=== PATIENT | female | born 1935 | race Caucasian/White ===

== ENCOUNTER 2020-12-02 11:36 | Inpatient (IN) ==
[2020-12-02] MEDS ORDERED: SODIUM CHLORIDE 0.9% 1000ML 500 ML IV ONE ×2 (12:25→14:14)
[2020-12-02] MEDS ORDERED: ALBUTEROL HFA 8 GM INHALER INH ONE (12:25)
--- NOTE | 2020-12-02 12:35 | Emergency Department Note ---
Impression & Plan Atrial fibrillation with rapid ventricular response, Weakness, Acute dehydration, COVID-19 ED Provider Note NAME: LARS JAVED AGE: 85 SEX: F : 1935 ARRIVES VIA: Ambulance INFORMANT: [Patient][nursing] ED PROVIDER(S): [Librado Cortez MD] CHIEF COMPLAINT: Illness HISTORY OF PRESENT ILLNESS: The patient is an 85-year-old female presents to the ER with fatigue, weakness, some cough and shortness of breath. The patient states that she has been sick for about 2 weeks with some flulike symptoms. She has had some body aches, she has been quite fatigued and she has lost her appetite as well as her taste. A week ago, she tested positive for Covid. She has continued to decline especially with her strength. She feels dehydrated. She had some occasional back pain and some occasional chest pain. She states that she does have a dry cough and she is somewhat short of breath, especially with exertion. She had some vomiting recently but none today. No diarrhea. The patient was brought by EMS. She states her daughter felt she looked awful today and felt she should be seen in the ED. REVIEW OF SYSTEMS: See HPI for pertinent positives and negatives. A total of ten systems were reviewed and were otherwise negative. PMHx/PSHx: See Below SOCIAL HISTORY: See Below. PHYSICAL EXAM: GENERAL: Patient is in no acute distress. HEENT: No acute trauma, normocephalic atraumatic, mucous membranes dry, no nasal congestion, no scleral icterus. NECK: No stridor, no adenopathy, no meningismus, trachea is midline. LUNGS: Crackles at both bases, more so on the left. There is no wheezing, no respiratory distress. HEART: Mildly tachycardic and irregular, no murmurs. ABDOMEN: Soft, nontender, bowel sounds positive, no hernias, no peritonitis. EXTREMITIES: No cyanosis or edema, full range of motion of all the joints without pain or difficulty, no signs for acute trauma. NEUROLOGIC: Oriented x 3, no acute motor or sensory deficits, no focal weakness. SKIN: She has very dry skin, especially to her lower extremities. No erythema to suggest cellulitis. DIFFERENTIAL DIAGNOSIS: Infection, dehydration, metabolic abnormality, hypo/hyperglycemia, COVID-19 pneumonia, electrolyte disturbance, anemia, hypoxia, cardiac sources, dysrhythmia, intracerebral event, toxicologic issues, stroke, TIA, as well as other pathologies. EMERGENCY DEPARTMENT COURSE/PROCEDURES: ECG: Indication was shortness of breath. The ECG shows atrial fibrillation with diffuse T wave flattening and some subtle ST depression. There are PVCs present. The rate is 107. There are no PACs. The QTc is 483. No old ECGs available for comparison. Continuous Cardiac Monitoring: An order was placed for continuous cardiac monitoring. The monitor shows a rate of 110 with atrial fibrillation. Critical Care Note: I have personally spent 48 minutes of critical care time in the direct management of this patient. This includes bedside care, interpretation of diagnostic studies, and testing, discussion with consultants, patient, and family members, and other required patient management activities. This 48 minutes is in excess of all separately billable procedures. MEDICAL DECISION MAKING: There is no leukocytosis or concerning anemia. There is a normal platelet count. No coagulopathy. No significant electrolyte abnormality or kidney failure. Lactic acid level was slightly elevated consistent with dehydration and/or infection. No worrisome liver enzyme elevation. The patient appeared to be in a euthyroid state. Covid testing was positive, influenza testing was negative. Chest film showed some congestion at the left base consistent with possible atelectasis or potentially Covid pneumonia. ECG shows rapid atrial fibrillation, there was no evidence for acute MT. Cardiac enzyme testing x1 is not consistent with acute cardiac injury. The patient presents with weakness. She was dehydrated. She was found to be in rapid A. fib. In addition, she has COVID-19 pneumonia. The patient was given albuterol via MDI. She received IV saline, a total of 1 L was given. I discussed my findings with the patient. I do think a hospital stay is warranted. Her heart rate is relatively controlled already as she takes metoprolol on a regular basis. As she was dehydrated, I felt that we could hold on IV rate controlling medications. I did speak with case management, the on-call hospitalist was consulted. Past Med/Surg History Medical History Afib Breast CA CAD (coronary artery disease) COVID-19 HTN (hypertension) Hypothyroidism Kidney stone Pyelonephritis Surgical History (Updated 12/02/20 @ 15:38 by Gavin S. Brezovic, [employer]) H/O rotator cuff surgery Previous section S/P CABG x 3 S/P cholecystectomy Status post bilateral knee replacements Family History Other No significant family history Social History Smoking Status: Never smoker Preferred Language: Micronesian Feels Safe at Home: Yes Allergies Allergies Allergy/AdvReac Type Severity Reaction Status Date / Time No Known Allergies Allergy Unverified 12/02/20 14:56 Home Meds Home Medications Medication Instructions Recorded Confirmed atorvastatin [Lipitor] 10 mg PO DAILY 07/17/20 12/02/20 furosemide [Lasix] 20 mg PO DAILY PRN 07/17/20 12/02/20 isosorbide mononitrate 60 mg PO BID 07/17/20 12/02/20 levothyroxine 50 mcg PO DAILY 07/17/20 12/02/20 metoprolol tartrate [Lopressor] 50 mg PO BID 07/17/20 12/02/20 sertraline [Zoloft] 100 mg PO DAILY 07/17/20 12/02/20 triamcinolone acetonide 1 applic TOPICAL BID 07/17/20 12/02/20 ibuprofen 400 mg PO Q6H PRN 12/02/20 12/02/20 Previous Rx's Medication Instructions Recorded oxycodone 5 mg PO Q4H PRN #15 tab 07/28/20 Results & Data (ED) Vital Signs Vital Signs - 24 hr 12/02/20 11:37 12/02/20 11:52 12/02/20 11:56 Temperature 36.9 C Temperature Source Oral Pulse Rate 96 H Pulse Rate [Right Finger] 110 H Pulse Rhythm [Right Finger] Pulse Strength [Right Finger] Respiratory Rate 17 18 Respiratory Effort / Characteristics Non-Labored Respiratory Depth Normal Respiratory Pattern Blood Pressure 96/78 L Blood Pressure [Right Arm] Blood Pressure Mean 84 Blood Pressure Mean [Right Arm] Blood Pressure Position [Right Arm] Pulse Oximetry 96 98 Oxygen Delivery Method Room Air Room Air Room Air Sepsis Recent Fever Within 48 Hours No Sepsis New/Unexplained Change in Mental Status N/A Sepsis Action Taken by Nursing No Action Required 12/02/20 12:00 12/02/20 12:35 12/02/20 13:30 Temperature Temperature Source Pulse Rate Pulse Rate [Right Finger] 90 102 H Pulse Rhythm [Right Finger] Regular Pulse Strength [Right Finger] Normal Respiratory Rate 12 22 Respiratory Effort / Characteristics Non-Labored Respiratory Depth Normal Respiratory Pattern Regular Blood Pressure Blood Pressure [Right Arm] 131/85 131/105 H Blood Pressure Mean Blood Pressure Mean [Right Arm] 100 113 Blood Pressure Position [Right Arm] Sitting Pulse Oximetry 96 94 Oxygen Delivery Method Room Air Room Air Room Air Sepsis Recent Fever Within 48 Hours Sepsis New/Unexplained Change in Mental Status Sepsis Action Taken by Correction Medications Current Medication List: was personally reviewed by me Laboratory Data Attestation: I reviewed the patient's lab results. Result diagrams: 12/02/20 12:46 12/02/20 12:46 Lab Results 12/02/20 12/02/20 12/02/20 Range/Units 12:10 12:10 12:46 WBC 7.48 (4.8-10.8) K/uL RBC 4.90 (4.2-5.4) M/uL Hgb 15.5 (12.0-16.0) g/dL Hct 44.5 (37-47) % MCV 90.8 (80-100) fL MCH 31.6 (25-34) pg MCHC 34.8 (32-36) g/dL RDW Std Deviation 45.1 (36.4-46.3) fL RDW Coeff of Adalberto 13.5 (11.5-14.5) % Plt Count 133 (130-400) K/uL MPV 9.8 (7.4-10.4) fL Immature Gran % (Auto) 0.4 % Neut % (Auto) 77.6 % Lymph % (Auto) 11.4 % [place] % (Auto) 10.2 % Eos % (Auto) 0.3 % Baso % (Auto) 0.1 % Neut # (Auto) 5.81 (1.4-6.5) K/uL Lymph # (Auto) 0.85 L (1.2-3.4) K/uL [place] # (Auto) 0.76 H (0.11-0.59) K/uL Eos # (Auto) 0.02 (0-0.5) K/uL Baso # (Auto) 0.01 (0-0.2) K/uL Immature Gran # (Auto) 0.03 H (0.00-0.02) K/uL PT (9.0-12.0) Seconds INR (0.9-1.1) APTT (21.0-31.0) Seconds PTT Ratio Sodium (136-145) mmol/L Potassium (3.5-5.1) mmol/L Chloride (98-107) mmol/L Carbon Dioxide (21-32) mmol/L Anion Gap (3-11) BUN (7-18) mg/dl Creatinine (0.6-1.2) mg/dl Est Cr Clr Drug Dosing ml/min Est GFR ( Amer) Est GFR (Non-Af Amer) BUN/Creatinine Ratio (10-20) Glucose (70-99) mg/dl Lactate (0.4-2.0) mmol/L Calcium (8.5-10.1) mg/dl Magnesium (1.8-2.4) mg/dl Total Bilirubin (0.2-1) mg/dl AST (15-37) U/L ALT (12-78) U/L Alkaline Phosphatase (45-117) U/L Troponin I (0-0.045) ng/ml Total Protein (6.4-8.2) gm/dl Albumin (3.4-5.0) gm/dl Globulin (2.5-4.0) gm/dl Albumin/Globulin Ratio (0.9-2) TSH (0.300-4.500) uIu/ml COVID-19 Eval Order [facility]FluRsv at [facility] SARS-CoV-2 (PCR) POSITIVE A* (Negative) Influenza Type A (PCR) Negative (Neg) Influenza Type B (PCR) Negative (Neg) RSV (RT-PCR) Negative (Neg) 12/02/20 12/02/20 12/02/20 Range/Units 12:46 12:46 12:46 WBC (4.8-10.8) K/uL RBC (4.2-5.4) M/uL Hgb (12.0-16.0) g/dL Hct (37-47) % MCV (80-100) fL MCH (25-34) pg MCHC (32-36) g/dL RDW Std Deviation (36.4-46.3) fL RDW Coeff of Adalberto (11.5-14.5) % Plt Count (130-400) K/uL MPV (7.4-10.4) fL Immature Gran % (Auto) % Neut % (Auto) % Lymph % (Auto) % [place] % (Auto) % Eos % (Auto) % Baso % (Auto) % Neut # (Auto) (1.4-6.5) K/uL Lymph # (Auto) (1.2-3.4) K/uL [place] # (Auto) (0.11-0.59) K/uL Eos # (Auto) (0-0.5) K/uL Baso # (Auto) (0-0.2) K/uL Immature Gran # (Auto) (0.00-0.02) K/uL PT 10.6 (9.0-12.0) Seconds INR 1.0 (0.9-1.1) APTT 27.9 (21.0-31.0) Seconds PTT Ratio 1.1 Sodium 140 (136-145) mmol/L Potassium 3.5 (3.5-5.1) mmol/L Chloride 109 H (98-107) mmol/L Carbon Dioxide 23 (21-32) mmol/L Anion Gap 8.0 (3-11) BUN 26 H (7-18) mg/dl Creatinine 1.02 (0.6-1.2) mg/dl Est Cr Clr Drug Dosing 36.9 ml/min Est GFR ( Amer) 57.7 Est GFR (Non-Af Amer) 49.8 BUN/Creatinine Ratio 25.8 H (10-20) Glucose 110 H (70-99) mg/dl Lactate 2.2 H* (0.4-2.0) mmol/L Calcium 10.2 H (8.5-10.1) mg/dl Magnesium 2.0 (1.8-2.4) mg/dl Total Bilirubin 0.8 (0.2-1) mg/dl AST 55 H (15-37) U/L ALT 46 (12-78) U/L Alkaline Phosphatase 80 (45-117) U/L Troponin I < 0.015 (0-0.045) ng/ml Total Protein 7.5 (6.4-8.2) gm/dl Albumin 3.0 L (3.4-5.0) gm/dl Globulin 4.5 H (2.5-4.0) gm/dl Albumin/Globulin Ratio 0.7 L (0.9-2) TSH 1.260 (0.300-4.500) uIu/ml COVID-19 Eval Order SARS-CoV-2 (PCR) (Negative) Influenza Type A (PCR) (Neg) Influenza Type B (PCR) (Neg) RSV (RT-PCR) (Neg) 12/02/20 Range/Units 15:15 WBC (4.8-10.8) K/uL RBC (4.2-5.4) M/uL Hgb (12.0-16.0) g/dL Hct (37-47) % MCV (80-100) fL MCH (25-34) pg MCHC (32-36) g/dL RDW Std Deviation (36.4-46.3) fL RDW Coeff of Adalberto (11.5-14.5) % Plt Count (130-400) K/uL MPV (7.4-10.4) fL Immature Gran % (Auto) % Neut % (Auto) % Lymph % (Auto) % [place] % (Auto) % Eos % (Auto) % Baso % (Auto) % Neut # (Auto) (1.4-6.5) K/uL Lymph # (Auto) (1.2-3.4) K/uL [place] # (Auto) (0.11-0.59) K/uL Eos # (Auto) (0-0.5) K/uL Baso # (Auto) (0-0.2) K/uL Immature Gran # (Auto) (0.00-0.02) K/uL PT (9.0-12.0) Seconds INR (0.9-1.1) APTT (21.0-31.0) Seconds PTT Ratio Sodium (136-145) mmol/L Potassium (3.5-5.1) mmol/L Chloride (98-107) mmol/L Carbon Dioxide (21-32) mmol/L Anion Gap (3-11) BUN (7-18) mg/dl Creatinine (0.6-1.2) mg/dl Est Cr Clr Drug Dosing ml/min Est GFR ( Amer) Est GFR (Non-Af Amer) BUN/Creatinine Ratio (10-20) Glucose (70-99) mg/dl Lactate 1.9 (0.4-2.0) mmol/L Calcium (8.5-10.1) mg/dl Magnesium (1.8-2.4) mg/dl Total Bilirubin (0.2-1) mg/dl AST (15-37) U/L ALT (12-78) U/L Alkaline Phosphatase (45-117) U/L Troponin I (0-0.045) ng/ml Total Protein (6.4-8.2) gm/dl Albumin (3.4-5.0) gm/dl Globulin (2.5-4.0) gm/dl Albumin/Globulin Ratio (0.9-2) TSH (0.300-4.500) uIu/ml COVID-19 Eval Order SARS-CoV-2 (PCR) (Negative) Influenza Type A (PCR) (Neg) Influenza Type B (PCR) (Neg) RSV (RT-PCR) (Neg) Administered Medications Discontinued Medications Albuterol (Albuterol Hfa 8 Gm Inhaler) 2 puffs INH NOW ONE Stop: 12/02/20 12:26 Last Admin: 12/02/20 13:10 Dose: 2 puffs Documented by: [id number] Sodium Chloride (Nss 1000ml) 500 mls @ 999 mls/hr IV .Q31M ONE Stop: 12/02/20 12:55 Last Infusion: 12/02/20 16:28 Dose: 0 mls/hr Documented by: [id number] Admin: 12/02/20 13:10 Dose: 999 mls/hr Documented by: [id number] Sodium Chloride (Nss 1000ml) 500 mls @ 999 mls/hr IV .Q31M ONE Stop: 12/02/20 14:44 Last Infusion: 12/02/20 16:28 Dose: 0 mls/hr Documented by: [id number] Admin: 12/02/20 15:26 Dose: 999 mls/hr Documented by: [id number] Potassium Chloride (Potassium Chloride Crtab 20 Meq Tabcr) 40 meq PO NOW STA Stop: 12/02/20 14:27 Last Admin: 12/02/20 15:26 Dose: 40 meq Documented by: [id number] Rivaroxaban (Rivaroxaban 20 Mg Tab) 20 mg PO DAILY ONE Stop: 12/02/20 15:08 Last Admin: 12/02/20 16:21 Dose: 20 mg Documented by: [id number] Imaging Data Radiologist's Impression: Chest X-Ray 12/02/20 12:25 SINGLE VIEW CHEST CLINICAL HISTORY: Dyspnea. FINDINGS: An AP, portable, upright chest radiograph is compared to study dated 02/09/2020. The patient is status post midline sternotomy. The heart is top normal for projection noting atherosclerotic calcification of the thoracic aorta. Chronic interstitial thickening is similar to previous. There is mild elevation of left hemidiaphragm with left basilar atelectasis. No airspace consolidation or large pleural effusion is identified. No pneumothorax is seen. The skeletal structures are osteopenic. The bony thorax is grossly intact. Surgical anchors are present in the right humeral head. Clips are noted in the left axilla. IMPRESSION: No acute cardiopulmonary abnormality. ACT 112: Negative or not required by law. Electronically signed by: Librado Murillo M.D. 12/02/2020 1:42 PM Discharge Plan Visit Data Chief Complaint: Respiratory Problems Stated Complaint: SOB/ Pos Covid ED Provider: Librado Cortez Discharge Problem: Atrial fibrillation with rapid ventricular response, Weakness, Acute dehydration, COVID-19 Patient Disposition: Admitted As Inpatient Condition: Fair Forms Stand Alone Forms: [facility] [employer] Prescriptions Prescriptions: No Action atorvastatin [Lipitor] 10 mg tablet 10 mg PO DAILY RF: 0 sertraline [Zoloft] 100 mg tablet 100 mg PO DAILY RF: 0 isosorbide mononitrate 60 mg tablet extended release 24 hr 60 mg PO BID RF: 0 levothyroxine 50 mcg tablet 50 mcg PO DAILY RF: 0 triamcinolone acetonide 0.1 % ointment 1 applic TOPICAL BID RF: 0 metoprolol tartrate [Lopressor] 50 mg tablet 50 mg PO BID RF: 0 furosemide [Lasix] 20 mg tablet 20 mg PO DAILY PRN (Reason: fluid build up) RF: 0 oxycodone 5 mg tablet 5 mg PO Q4H PRN (Reason: pain) Qty: 15 RF: 0 ibuprofen 200 mg Tablet 400 mg PO Q6H PRN (Reason: fever/pain) RF: 0 Referrals Referrals: Ivy Child MD [Primary Care Provider] -
[2020-12-02 13:00] LABS: Basophils # (auto) 0.01 K/uL (0-0.2); Basophils % (auto) 0.1 %; Eosinophils # (auto) 0.02 K/uL (0-0.5); Eosinophils % (auto) 0.3 %; Hematocrit (blood only) 44.5 % (37-47); Hemoglobin 15.5 g/dL (12.0-16.0); Immature Granulocytes # (auto) 0.03 K/uL (0.00-0.02); Immature Granulocytes % (auto) 0.4 %; Lymphocytes # (auto) 0.85 K/uL (1.2-3.4); Lymphocytes % (auto) 11.4 %; Mean Corpuscular Hemoglobin 31.6 pg (25-34); Mean Corpuscular Hgb Conc 34.8 g/dL (32-36); Mean Corpuscular Volume 90.8 fL (80-100); Mean Platelet Volume 9.8 fL (7.4-10.4); Monocytes # (auto) 0.76 K/uL (0.11-0.59); Monocytes % (auto) 10.2 %; Neutrophils # (auto) 5.81 K/uL (1.4-6.5); Neutrophils % (auto) 77.6 %; Platelet Count 133 K/uL (130-400); RDW Coefficient of Variation 13.5 % (11.5-14.5); RDW Standard Deviation 45.1 fL (36.4-46.3); White Blood Count 7.48 K/uL (4.8-10.8)
[2020-12-02 13:15] LABS: Partial Thromboplastin Ratio 1.1; Partial Thromboplastin Time 27.9 Seconds (21.0-31.0); Prothrombin Time 10.6 Seconds (9.0-12.0)
[2020-12-02 13:18] LABS: Alanine Aminotransferase 46 U/L (12-78); Aspartate Aminotransferase 55 U/L (15-37); BUN Creatinine Ratio 25.8 (10-20); Blood Urea Nitrogen 26 mg/dl (7-18); Calcium 10.2 mg/dl (8.5-10.1); Carbon Dioxide 23 mmol/L (21-32); Chloride 109 mmol/L (98-107); Creatinine Clr Calc Pharmacy 36.9 ml/min; Est GFR (African American) 57.7; Est GFR (Non-African American) 49.8; Glucose 110 mg/dl (70-99); Potassium 3.5 mmol/L (3.5-5.1); Sodium 140 mmol/L (136-145)
[2020-12-02 13:28] LABS: Albumin Globulin Ratio 0.7 (0.9-2); Alkaline Phosphatase 80 U/L (45-117); Bilirubin,Total 0.8 mg/dl (0.2-1); Globulin 4.5 gm/dl (2.5-4.0); Total Protein 7.5 gm/dl (6.4-8.2); Troponin I < 0.015 ng/ml (0-0.045)
--- NOTE | 2020-12-02 13:43 | XRay Report ---
SINGLE VIEW CHEST CLINICAL HISTORY: Dyspnea. FINDINGS: An AP, portable, upright chest radiograph is compared to study dated 02/09/2020. The patient is status post midline sternotomy. The heart is top normal for projection noting atherosclerotic calc ification of the thoracic aorta. Chronic interstitial thickening is similar to previous. There is mil d elevation of left hemidiaphragm with left basilar atelectasis. No airspace consolidation or large p leural effusion is identified. No pneumothorax is seen. The skeletal structures are osteopenic. The b chelsey thorax is grossly intact. Surgical anchors are present in the right humeral head. Clips are noted in the left axilla. IMPRESSION: No acute cardiopulmonary abnormality. ACT 112: Negative or not required by law. Electronically signed by: Librado Murillo M.D. 12/02/2020 1:42 PM
[2020-12-02 13:49] LABS: Influenza A virus by PCR Negative (Neg); Influenza B virus by PCR Negative (Neg); RSV by PCR Negative (Neg)
[2020-12-02 14:09] LABS: SARS CoV2 RNA(COVID-19) InHosp POSITIVE (Negative)
[2020-12-02] MEDS ORDERED: POTASSIUM CHLORIDE CRTAB 20 MEQ TABCR PO STA (14:26)
[2020-12-02] MEDS ORDERED: RIVAROXABAN 20 MG TAB PO ONE (15:07)
--- NOTE | 2020-12-02 15:47 | History & Physical Report ---
Date of Service December 02, 2020 Assessment & Plan (1) COVID-19: COVID 19- day 10-12 - not hypoxic, or lymphopenic, no evidence of pneumonia or other organ dysfunction- WBC 7, NLR 6:1, blood and urine cultures pending - admit for supportive care with dietary and oral intake - Avoid further crystalloid infusions to keep lungs dry - Assist with oral hydration - Self proning, with albuterol PRN - Isolation precautions continue airborne (2) Afib: New onset afib- patient nor daughter recall her having this before, even after her cardiac surgery - Patient has not been taking her metoprolol for the last 2 days at least - this in conjunction with COVID 19 infection likely inciting event - K 3.5- given 40 meq potassium; MG 2.0 - Restart oral BB - CHADSVASC -2 - discussion had with patient and daughter regarding anticoagulation and risk factors for VKA vs. DOACs. - With her coronary history and now COVID infection; Will start patient on Xarelto 20 mg PO dialy first dose now - Will consult her Video Tape Duplicator DR. Ortiz for further discussions following her COVID - Rate control option for time being as we are not sure when she went into AFIB goal <110 - TSH 1.2 (3) CAD (coronary artery disease): patient reports stable angina with CAD to cahto vessels, but with reported compromised bypass graft - Continue statin - Continue BB - Continue Isosorbide (4) HTN (hypertension): Goal <130 - Review from previous available data doesn't show great control - Appreciate cardiology for historical review (5) Hypothyroidism: Continue Synthroid - no acute needs TSH normal History of Present Illness Chief Complaint: fatigue and poor intake Primary Care Provider: Ivy Child MD 85 YOF with past medical history of: CABG x3 2001 in [place], patient states she has one of her grafts that is blocked and they have tried multiple times to unblock it in [place] and [place], with no success, she follows with Dr. Ortiz from [facility]. She has HTN as well as HLD, and some dry keratotic skin, and hypothyroidism. Patient has experienced angina for which she takes her SL nitroglycerin. She takes this for times when she knows she is going to do inactivity that gives her angina. Patient came in today as she was tested positive for COVID last FridayPril2021. She has not gotten her vaccine, secondary to being unable to find a vaccine center that called her back. She lives with her daughter who is a secondary school teacher librarian and got the Jarad and Jarad vaccine on . Her daughter and her grandson both currently have Covid. I spoke with her daughter Fabiola and the have been feeling unwell since around the 07-24. She made her mom come to the emergency room today because she has not been taking her medications for the past couple days and her oral intake of food and water has been decreased for the week. The patient states that she just has no appetite and food tastes funny to her. She was also noted to be in new onset atrial fibrillation at this time that is rate controlled. Patient will be admitted and monitored for her response with COVID, she is not hypoxic, or hypotensive, no evidence of organ dysfunction, she received 2 liters of 0.9% saline in the emd for mild lactate elevation. Patient sees Dr. Ortiz and consult has been placed Allergies Allergy/AdvReac Type Severity Reaction Status Date / Time No Known Allergies Allergy Unverified 12/02/20 14:56 Home Medications Medication Instructions Recorded Confirmed Type atorvastatin [Lipitor] 10 mg PO DAILY 07/17/20 12/02/20 History furosemide [Lasix] 20 mg PO DAILY PRN 07/17/20 12/02/20 History isosorbide mononitrate 60 mg PO BID 07/17/20 12/02/20 History levothyroxine 50 mcg PO DAILY 07/17/20 12/02/20 History metoprolol tartrate [Lopressor] 50 mg PO BID 07/17/20 12/02/20 History sertraline [Zoloft] 100 mg PO DAILY 07/17/20 12/02/20 History triamcinolone acetonide 1 applic TOPICAL BID 07/17/20 12/02/20 History oxycodone 5 mg PO Q4H PRN #15 tab 07/28/20 12/02/20 Rx ibuprofen 400 mg PO Q6H PRN 12/02/20 12/02/20 History Past Med/Surg History Medical History Afib Breast CA CAD (coronary artery disease) COVID-19 HTN (hypertension) Hypothyroidism Kidney stone Pyelonephritis Surgical History (Updated 12/02/20 @ 15:38 by MAGNUS Wilde) H/O rotator cuff surgery Previous section S/P CABG x 3 S/P cholecystectomy Status post bilateral knee replacements Family History Other No significant family history Social History Smoking Status: Never smoker Preferred Language: Danish Feels Safe at Home: Yes Review of Systems Review of Systems: REVIEW OF SYSTEMS: Constitutional: (+) sweats or chills, No fever, Eyes: No diplopia, no worsening or blurred vision ENT: normal hearing, no trouble swallowing Respiratory: (+) cough, sputum, dyspnea on exertion, no dyspnea on rest Cardiovascular: (+) angina, No chest pain, tightness or palpitations Abdomen: (+) constipation, No pain, nausea, vomiting, diarrhea Musculoskeletal: No joint pain, calf pain, swelling Neurologic: No weakness, numbness/tingling, or balance problems Psychiatric: No anxiety or depression Skin: (+) dry keratosis Physical Exam Physical Exam: PHYSICAL EXAM: General: awake, alert, no apparent distress Head: Normocephalic, atraumatic ENT: PERRL, EOMI, no pharyngeal exudate, mucous membranes moist Neuro: AAO x 3, speech clear and appropriate, strength intact bilaterally 5/5, sensation intact and equal all extremities and dermatomes, no pronator drift Chest: equal rise and fall of the chest, no accessory muscle use, no heaves or thrills, scattered fine crackles throughout, on room air, no hypoxia with movement. cough with thin clear secretions Cardiac: irregular rate and rhythm, telemetry reviewed- afib no ectopy, skin warm dry, cap refill <3 seconds, peripheral pulses +2 no JVD, no murmur, no JVD, no edema GI: NABS x 4 quadrants, soft, nontender to palpation, no rebound, guarding or tenderness : Spontaneously voiding, no pain, no CVA tenderness, Extremities: Normal inspection, no peripheral edema or erythema, calfs nontender to palpation Psych: Normal mood and affect Skin:dry keratosis noted peripherally and on hands and arms. erythematous flat rash to chest, patient states she has had that for years Results & Data Results & Data ([facility]) Vital Signs (Past 12 Hours) Vital Signs Temp Pulse Pulse Resp BP BP Pulse Ox 12/02/20 13:30 102 H 22 131/105 H 94 12/02/20 12:35 90 12 131/85 96 12/02/20 11:56 110 H 18 98 12/02/20 11:37 36.9 C 96 H 17 96/78 L 96 Laboratory Results Abnormal lab results 12/02/20 12/02/20 12/02/20 Range/Units 12:10 12:46 12:46 Lymph # (Auto) 0.85 L (1.2-3.4) K/uL Howell # (Auto) 0.76 H (0.11-0.59) K/uL Immature Gran # (Auto) 0.03 H (0.00-0.02) K/uL Chloride 109 H (98-107) mmol/L BUN 26 H (7-18) mg/dl BUN/Creatinine Ratio 25.8 H (10-20) Glucose 110 H (70-99) mg/dl Lactate (0.4-2.0) mmol/L Calcium 10.2 H (8.5-10.1) mg/dl AST 55 H (15-37) U/L Albumin 3.0 L (3.4-5.0) gm/dl Globulin 4.5 H (2.5-4.0) gm/dl Albumin/Globulin Ratio 0.7 L (0.9-2) SARS-CoV-2 (PCR) POSITIVE A* (Negative) 12/02/20 Range/Units 12:46 Lymph # (Auto) (1.2-3.4) K/uL Howell # (Auto) (0.11-0.59) K/uL Immature Gran # (Auto) (0.00-0.02) K/uL Chloride (98-107) mmol/L BUN (7-18) mg/dl BUN/Creatinine Ratio (10-20) Glucose (70-99) mg/dl Lactate 2.2 H* (0.4-2.0) mmol/L Calcium (8.5-10.1) mg/dl AST (15-37) U/L Albumin (3.4-5.0) gm/dl Globulin (2.5-4.0) gm/dl Albumin/Globulin Ratio (0.9-2) SARS-CoV-2 (PCR) (Negative) Diagnostic Findings SINGLE VIEW CHEST CLINICAL HISTORY: Dyspnea. FINDINGS: An AP, portable, upright chest radiograph is compared to study dated 02/09/2020. The patient is status post midline sternotomy. The heart is top normal for projection noting atherosclerotic calcification of the thoracic aorta. Chronic interstitial thickening is similar to previous. There is mild elevation of left hemidiaphragm with left basilar atelectasis. No airspace consolidation or large pleural effusion is identified. No pneumothorax is seen. The skeletal structures are osteopenic. The bony thorax is grossly intact. Surgical anchors are present in the right humeral head. Clips are noted in the left axilla. IMPRESSION: No acute cardiopulmonary abnormality. ECG Additional Comments: afib controlled rate, no acute ST segment changes NEW onset afib Code Status & VTE Plan Code Status CODE: FULL VTE: SCD's, Xeralto Supervising Physician Co-Signing Physician Notes I supervised MAGNUS Cuenca on this admission. I examined the patient today independently of him. I discussed the plan of care with him with the plan being as written in his note except for any following changes/exceptions: None. 85yo F w/ hx of CAD who presents with Covid and new-onset atrial fibrillation. Overall, she actually is doing pretty well from the Covid standpoint with good respiratory status. She has mostly been feeling increasingly run-down with poor PO intake and general weakness. In the ED, she was found to have new onset atrial fibrillation. She normally follows with Dr. Ortiz. - Given stable respiratory status, does not meet requirement for any Covid treatments at this time. - Will start anticoagulation with DOAC, get echocardiogram, and consult content analyst. (Of note, echo may not be done until she has passed contagious stage. Dr. Ortiz may have access to a recent one in her [facility] records.) PG Care Time/CCT Total # of Minutes Spent Total Time Spent with Patient: Total time spent is greater than 50% in coordination of care (as documented) at patient's floor/unit and/or counseling patient: Coding Level of Care Code 31277 Initial Inpt Care Lvl 3 Diagnoses COVID-19 U07.1 Afib I48.91 Atrial fibrillation type: unspecified CAD (coronary artery disease) I25.118 Associated angina: with stable angina Coronary Disease-Associated Artery/Lesion type: cahto artery [place] vs. transplanted heart: cahto heart HTN (hypertension) I10 Hypertension type: unspecified Hypothyroidism E03.9 Hypothyroidism type: unspecified (1) CAD (coronary artery disease) Associated angina: with stable angina Coronary Disease-Associated Artery/Lesion type: cahto artery [place] vs. transplanted heart: cahto heart Qualified Code(s): I25.118 - Atherosclerotic heart disease of cahto coronary artery with other forms of angina pectoris (2) Afib Atrial fibrillation type: unspecified Qualified Code(s): I48.91 - Unspecified atrial fibrillation (3) Hypothyroidism Hypothyroidism type: unspecified Qualified Code(s): E03.9 - Hypothyroidism, unspecified (4) HTN (hypertension) Hypertension type: unspecified Qualified Code(s): I10 - Essential (primary) hypertension
[2020-12-02] MEDS ORDERED: NITROGLYCERIN SL 0.4 MG/TAB TAB SL PRN (20:09)
[2020-12-02] MEDS ORDERED: ALBUTEROL HFA 8 GM INHALER INH PRN (20:09)
[2020-12-02] MEDS ORDERED: ACETAMINOPHEN 325 MG TAB PO PRN (20:09)
[2020-12-02] MEDS ORDERED: POLYETHYLENE (MIRALAX) 17 GM PACK PO PRN (20:09)
[2020-12-02 21:47] LABS: Fibrinogen 486 mg/dl (184-400)
[2020-12-02] MEDS: ATORVASTATIN 10 MG TAB PO SCH (22:02)
[2020-12-02] MEDS: METOPROLOL TARTRATE 50 MG TAB PO SCH (22:03)
[2020-12-02] MEDS: ISOSORBIDE MONO EXTENDED REL 60 MG TABCR PO SCH (22:03)
[2020-12-02] MEDS: TRIAMCINOLONE ACET 0.1% OINT 15 GM TUBE TOP SCH (22:03)
[2020-12-03] MEDS: LEVOTHYROXINE SODIUM 50 MCG TABLET PO SCH (04:44)
[2020-12-03 07:02] LABS: Basophils # (auto) 0.01 K/uL (0-0.2); Basophils % (auto) 0.2 %; Eosinophils # (auto) 0.04 K/uL (0-0.5); Eosinophils % (auto) 0.7 %; Hematocrit (blood only) 38.9 % (37-47); Hemoglobin 13.7 g/dL (12.0-16.0); Immature Granulocytes # (auto) 0.04 K/uL (0.00-0.02); Immature Granulocytes % (auto) 0.7 %; Lymphocytes # (auto) 0.74 K/uL (1.2-3.4); Lymphocytes % (auto) 12.3 %; Mean Corpuscular Hemoglobin 31.4 pg (25-34); Mean Corpuscular Hgb Conc 35.2 g/dL (32-36); Mean Corpuscular Volume 89.2 fL (80-100); Mean Platelet Volume 10.1 fL (7.4-10.4); Monocytes # (auto) 0.46 K/uL (0.11-0.59); Monocytes % (auto) 7.6 %; Neutrophils # (auto) 4.74 K/uL (1.4-6.5); Neutrophils % (auto) 78.5 %; Platelet Count 163 K/uL (130-400); RDW Coefficient of Variation 13.5 % (11.5-14.5); RDW Standard Deviation 44.4 fL (36.4-46.3); Red Blood Count 4.36 M/uL (4.2-5.4); White Blood Count 6.03 K/uL (4.8-10.8)
[2020-12-03 07:22] LABS: BUN Creatinine Ratio 30.4 (10-20); Calcium 9.1 mg/dl (8.5-10.1); Creatinine Clr Calc Pharmacy 46.9 ml/min; Est GFR (African American) 78.6; Est GFR (Non-African American) 67.8; Magnesium 1.9 mg/dl (1.8-2.4); Potassium 3.6 mmol/L (3.5-5.1)
[2020-12-03 07:25] LABS: C Reactive Protein 7.84 mg/dl (0-0.29)
--- NOTE | 2020-12-03 07:48 | Electrocardiogram Report ---
Test Reason : Blood Pressure : / mmHG Vent. Rate : 107 BPM Atrial Rate : 081 BPM P-R Int : 000 ms QRS Dur : 100 ms QT Int : 362 ms P-R-T Axes : 000 -26 121 degrees QTc Int : 483 ms Atrial fibrillation with rapid ventricular response with premature ventricular or aberrantly conducte d complexes Nonspecific ST and T wave abnormality Abnormal ECG No previous ECGs available Confirmed by Adama Rockwell ([id number]) on 12/03/2020 7:48:10 AM Referred By: REFERRED SELF Confirmed By:Adama Rockwell
--- NOTE | 2020-12-03 07:58 | Electrocardiogram Report ---
Test Reason : Blood Pressure : / mmHG Vent. Rate : 092 BPM Atrial Rate : 092 BPM P-R Int : 142 ms QRS Dur : 086 ms QT Int : 382 ms P-R-T Axes : 067 059 056 degrees QTc Int : 472 ms Normal sinus rhythm Normal ECG When compared with ECG of 02-DEC-2020 11:50, Sinus rhythm has replaced Atrial fibrillation Non-specific change in ST segment in Inferior leads ST no longer depressed in Anterolateral leads Nonspecific T wave abnormality no longer evident in Inferior leads Nonspecific T wave abnormality no longer evident in Lateral leads Confirmed by Adama Rockwell ([id number]) on 12/03/2020 7:57:57 AM Referred By: REFERRED SELF Confirmed By:Adama Rockwell
[2020-12-03] MEDS ORDERED: RIVAROXABAN 20 MG TAB PO SCH (09:00)
[2020-12-03] MEDS: SERTRALINE HCL 100 MG TABLET PO SCH (09:01)
[2020-12-03] MEDS: POLYETHYLENE (MIRALAX) 17 GM PACK PO SCH (09:01)
[2020-12-03] MEDS: METOPROLOL TARTRATE 50 MG TAB PO SCH ×2 (09:01→19:48)
[2020-12-03] MEDS: TRIAMCINOLONE ACET 0.1% OINT 15 GM TUBE TOP SCH ×2 (09:02→19:49)
[2020-12-03] MEDS: ASPIRIN 81 MG ECTAB PO SCH (09:02)
[2020-12-03] MEDS: ISOSORBIDE MONO EXTENDED REL 60 MG TABCR PO SCH ×2 (09:02→19:48)
[2020-12-03] MEDS: ATORVASTATIN 10 MG TAB PO SCH (09:02)
--- NOTE | 2020-12-03 09:51 | Electrocardiogram Report ---
Test Reason : Blood Pressure : / mmHG Vent. Rate : 088 BPM Atrial Rate : 241 BPM P-R Int : 000 ms QRS Dur : 102 ms QT Int : 384 ms P-R-T Axes : 000 -28 -53 degrees QTc Int : 464 ms Atrial fibrillation Nonspecific ST and T wave abnormality Abnormal ECG When compared with ECG of 02-DEC-2020 17:02, (unconfirmed) Atrial fibrillation has replaced Sinus rhythm Confirmed by Jacob Ortiz ([id number]) on 12/03/2020 9:51:28 AM Referred By: REFERRED SELF Confirmed By:Jacob Ortiz
--- NOTE | 2020-12-03 11:06 | Cardiology Consultation ---
Date of Consultation I was asked to see the patient who is in the Covid unit. She is in bed 205. We completed today's visit via telephone call. I discussed her case with the nurse as well as the patient. I spent greater than 25 minutes discussing her case as well as reviewing her inpatient medical records. She was admitted to the hospital with Covid pneumonia. She got Covid symptoms about 12 days or so ago. She notes very poor p.o. intake she was basically sleeping all day. She had also stopped her medications as she was concerned about low blood pressure. She was not eating very much and was severely dehydrated. In the hospital she has had paroxysmal atrial fibrillation. Her rates have been well controlled on atenolol. She was started on Xarelto. She denies any palpitations or fluttering or feeling her heart racing. She denies any worsening anginal symptoms when she is in atrial fibrillation. She denies any worsening heart failure symptoms either. She has no lower extremity edema. She denies any orthopnea. She is mildly short of breath talking in sentences. She does have a cough. Overall she notes she is actually feeling better since she has been here in the hospital. December 03, 2020 History of Present Illness Attending Physician: Juan Hall MD Allergies Allergy/AdvReac Type Severity Reaction Status Date / Time No Known Allergies Allergy Unverified 12/02/20 14:56 Home Medications Medication Instructions Recorded Confirmed Type atorvastatin [Lipitor] 10 mg PO DAILY 07/17/20 12/02/20 History furosemide [Lasix] 20 mg PO DAILY PRN 07/17/20 12/02/20 History isosorbide mononitrate 60 mg PO BID 07/17/20 12/02/20 History levothyroxine 50 mcg PO DAILY 07/17/20 12/02/20 History metoprolol tartrate [Lopressor] 50 mg PO BID 07/17/20 12/02/20 History sertraline [Zoloft] 100 mg PO DAILY 07/17/20 12/02/20 History triamcinolone acetonide 1 applic TOPICAL BID 07/17/20 12/02/20 History oxycodone 5 mg PO Q4H PRN #15 tab 07/28/20 12/02/20 Rx ibuprofen 400 mg PO Q6H PRN 12/02/20 12/02/20 History Patient History Medical History Afib Breast CA CAD (coronary artery disease) COVID-19 HTN (hypertension) Hypothyroidism Kidney stone Pyelonephritis Surgical History H/O rotator cuff surgery Previous section S/P CABG x 3 S/P cholecystectomy Status post bilateral knee replacements Family History Other No significant family history Social History Smoking Status: Never smoker Hx Alcohol Use: No Hx Substance Use: No Preferred Language: Romansh Communication Ability: Effective Clamp Operator Required: No Beliefs That Will Affect Care: None Current Living Situation: Family Feels Safe at Home: Yes Assistive Devices: Cane, Glasses, Hearing Aid - Bilateral and Walker Results & Data ([facility]) Vital Signs (Past 12 Hours) Vital Signs Temp Pulse Pulse Resp BP Pulse Ox 12/03/20 10:31 87 12/03/20 08:00 82 18 112/63 93 12/03/20 04:36 36.8 C 86 20 122/75 92 12/02/20 23:49 36.8 C 83 20 116/74 94 and exam was not performed as today's visit was done over the phone Impressions: 1. Covid with Covid pneumonia 2. Asymptomatic paroxysmal atrial fibrillation with an adequate rate control 3. History of coronary disease status post coronary bypass grafting x2 in [place] in 1999 4. Unknown LV function 5 hypertension 6 hyperlipidemia 7 chronic stable angina remaining functional class II 8. History of breast cancer From my standpoint she is doing relatively well her and heart rates are well controlled on the etl informatica developer whether she is in sinus rhythm or in A. fib. She has not had any pauses when she converts from A. fib back to sinus rhythm. She is appropriately placed on anticoagulation and remains on beta-blockers.. Her GFR is less than 50 cc and therefore she should be on the 15 mg daily dose not the 20 mg daily dose. If she remains stable without worsening angina or heart failure symptoms her echo can be done as an outpatient when she recovers. As I discussed with her likely the her A. fib is exacerbated by the stress of her Covid pneumonia. My hope is long-term she will remain in sinus rhythm. She has had no anginal symptoms since she has been here in the hospital. We will continue to follow her with you.
--- NOTE | 2020-12-03 16:16 | Hospitalist Progress Note ---
Date of Service December 03, 2020 Assessment & Plan (1) COVID-19: COVID 19- day 10-12 not covid pneumonia at this time - not hypoxic, or lymphopenic, no evidence of pneumonia or other organ dysfunction - admit for supportive care with dietary and oral intake - Avoid further crystalloid infusions to keep lungs dry - Assist with oral hydration - Self proning, with albuterol PRN - Isolation precautions continue airborne (2) Afib: New onset afib- patient nor daughter recall her having this before, even after her cardiac surgery - Patient has not been taking her metoprolol for the last 2 days at least - this in conjunction with COVID 19 infection likely inciting event - K 3.5- given 40 meq potassium; MG 2.0 - Restart oral BB - CHADSVASC -2 - discussion had with patient and daughter regarding anticoagulation and risk factors for VKA vs. DOACs. - With her coronary history and now COVID infection; Will start patient on Xarelto 15 mg dose for renal function - Rate control option for time being as we are not sure when she went into AFIB goal <110 - TSH 1.2 (3) CAD (coronary artery disease): patient reports stable angina with CAD to nikolai vessels, but with reported compromised bypass graft Per Cardiology consult "she is doing relatively well her and heart rates are well controlled on the round corner cutter operator whether she is in sinus rhythm or in A. fib. She has not had any pauses when she converts from A. fib back to sinus rhythm. She is appropriately placed on anticoagulation and remains on beta- blockers.. Her GFR is less than 50 cc and therefore she should be on the 15 mg daily dose not the 20 mg daily dose. If she remains stable without worsening angina or heart failure symptoms her echo can be done as an outpatient when she recovers. As I discussed with her likely the her A. fib is exacerbated by the stress of her Covid pneumonia. My hope is long-term she will remain in sinus rhythm. She has had no anginal symptoms since she has been here in the hospital." - Continue statin - Continue BB - Continue Isosorbide (4) HTN (hypertension): Goal <130 - Review from previous available data doesn't show great control - Appreciate cardiology for historical review (5) Hypothyroidism: Continue Synthroid - no acute needs TSH normal Admission and Anticipated Discharge Date Admission Date: December 02, 2020 Subjective Patient said no further chest discomfort. Her atrial fibrillation is reasonably controlled. Her troponins are negative x2. Despite her Covid diagnosis she has maintained saturations without the need for oxygen. And her chest x-ray does not look to have any infiltrates. She does have persistent intermittent abnormal EKGs with rapid atrial fibrillation rate. But she is known to have a coronary artery bypass graft that is close down and likely may explain some of her rate related EKG change phenomena Review of Systems Review of Systems: Mild distress and fatigue no headache, blurry or double vision no speech or swallowing issues No residual chest pain, no pressure or palpitations no shortness of breath, nonproductive cough no abdominal pain, nausea or vomiting, diarrhea or constipation no dysuria, hematuria or frequency no focal joint pain or swelling no back pain, CVA tenderness or radicular pain no bruising, bleeding or rashes no focal signs of weakness or numbness or altered sensation no complaints of anxiety or depression.. Physical Exam Physical Exam: The patient appeared well nourished and normally developed. Vital signs as documented. Head exam is normocephalic atraumatic no scleral icterus Neck is without JVD, thyromegaly, or carotid bruits. Lungs are clear to auscultation, no focal loss of breath sounds Cardiac exam, irregular but rate controlled Abdominal exam reveals normal bowel sounds, soft non tender, no masses Extremities are nonedematous and both pedal pulses are present Neurologic exam is alert and oriented, no focal loss of strength or sensation Skin is with actinic keratoses Psychologically is without concerns for anxiety or depression Results & Data Results & Data ([facility]) Vital Signs (Past 12 Hours) Vital Signs Temp Pulse Pulse Pulse Resp BP Pulse Ox 12/03/20 15:49 98.6 F 79 18 116/72 92 12/03/20 12:15 98.2 F 76 18 117/60 91 12/03/20 10:31 87 12/03/20 08:00 82 18 112/63 93 12/03/20 04:36 98.2 F 86 20 122/75 92 PG Care Time/CCT Total # of Minutes Spent Total Time Spent with Patient: Total time spent is greater than 50% in coordination of care (as documented) at patient's floor/unit and/or counseling patient: Coding Level of Care Code 08450 Subseq Hosp Care Lvl 3 Diagnoses COVID-19 U07.1 Afib I48.91 Atrial fibrillation type: unspecified CAD (coronary artery disease) I25.118 Coronary Disease-Associated Artery/Lesion type: nikolai artery [place] vs. transplanted heart: nikolai heart Associated angina: with stable angina HTN (hypertension) I10 Hypertension type: unspecified Hypothyroidism E03.9 Hypothyroidism type: unspecified (1) Afib Atrial fibrillation type: unspecified Qualified Code(s): I48.91 - Unspecified atrial fibrillation (2) CAD (coronary artery disease) Coronary Disease-Associated Artery/Lesion type: nikolai artery [place] vs. transplanted heart: nikolai heart Associated angina: with stable angina Qualified Code(s): I25.118 - Atherosclerotic heart disease of nikolai coronary artery with other forms of angina pectoris (3) HTN (hypertension) Hypertension type: unspecified Qualified Code(s): I10 - Essential (primary) hypertension (4) Hypothyroidism Hypothyroidism type: unspecified Qualified Code(s): E03.9 - Hypothyroidism, unspecified
[2020-12-04] MEDS: LEVOTHYROXINE SODIUM 50 MCG TABLET PO SCH (06:07)
[2020-12-04] MEDS: TRIAMCINOLONE ACET 0.1% OINT 15 GM TUBE TOP SCH (08:12)
[2020-12-04] MEDS: ASPIRIN 81 MG ECTAB PO SCH (08:12)
[2020-12-04] MEDS: ATORVASTATIN 10 MG TAB PO SCH (08:12)
[2020-12-04] MEDS: SERTRALINE HCL 100 MG TABLET PO SCH (08:12)
[2020-12-04] MEDS: ISOSORBIDE MONO EXTENDED REL 60 MG TABCR PO SCH (08:13)
[2020-12-04] MEDS: POLYETHYLENE (MIRALAX) 17 GM PACK PO SCH (08:13)
[2020-12-04] MEDS: METOPROLOL TARTRATE 50 MG TAB PO SCH (08:13)
[2020-12-04 08:31] LABS: Basophils # (auto) 0.01 K/uL (0-0.2); Basophils % (auto) 0.2 %; Eosinophils # (auto) 0.06 K/uL (0-0.5); Eosinophils % (auto) 1.2 %; Hematocrit (blood only) 36.7 % (37-47); Hemoglobin 12.8 g/dL (12.0-16.0); Immature Granulocytes # (auto) 0.02 K/uL (0.00-0.02); Immature Granulocytes % (auto) 0.4 %; Lymphocytes # (auto) 1.04 K/uL (1.2-3.4); Lymphocytes % (auto) 21.5 %; Mean Corpuscular Hemoglobin 31.2 pg (25-34); Mean Corpuscular Hgb Conc 34.9 g/dL (32-36); Mean Corpuscular Volume 89.5 fL (80-100); Mean Platelet Volume 10.1 fL (7.4-10.4); Monocytes # (auto) 0.56 K/uL (0.11-0.59); Monocytes % (auto) 11.6 %; Neutrophils # (auto) 3.14 K/uL (1.4-6.5); Neutrophils % (auto) 65.1 %; Platelet Count 173 K/uL (130-400); RDW Coefficient of Variation 13.4 % (11.5-14.5); RDW Standard Deviation 44.3 fL (36.4-46.3); White Blood Count 4.83 K/uL (4.8-10.8)
--- NOTE | 2020-12-04 08:32 | Cardiology Progress Note ---
Date of Service December 04, 2020 Assessment & Plan Admission and Anticipated Discharge Date Admission Date: December 02, 2020 Subjective No palpitations or anginal sx's. SOB is improving. Appetite better. Progressively getting better. I spent 12 minutes in the phone with nursing and the patient and reviewing her chart. Results & Data ([facility]) Vital Signs (Past 12 Hours) Vital Signs Temp Pulse Pulse Resp BP Pulse Ox 12/04/20 08:21 75 12/04/20 08:11 37.1 C 81 16 142/72 H 94 12/04/20 04:00 37.1 C 74 20 122/74 95 12/03/20 23:02 37.0 C 75 20 115/75 94 12/03/20 22:20 75 exam was not performed as today's visit was done over the phone Impressions: 1. Covid with Covid pneumonia 2. Asymptomatic paroxysmal atrial fibrillation with an adequate rate control 3. History of coronary disease status post coronary bypass grafting x2 in [place] in 1999 4. Unknown LV function 5 hypertension 6 hyperlipidemia 7 chronic stable angina remaining functional class II 8. History of breast cancer Her rates are well controlled in Afib. On Xarelto at 15mg dose and BB. Up and about with less SOB. Cough improving as well. No anginal sx's. If we think she is symptomatic as an outpatient we can consider CV but my hope is after she recovers from this she will convert back to NSR on her own.
[2020-12-04] MEDS ORDERED: RIVAROXABAN 15 MG TAB PO SCH (09:00)
[2020-12-04 09:18] LABS: Calcium 9.7 mg/dl (8.5-10.1); Creatinine Clr Calc Pharmacy 56.7 ml/min; Est GFR (African American) 93.2; Est GFR (Non-African American) 80.4; Magnesium 1.9 mg/dl (1.8-2.4); Potassium 3.7 mmol/L (3.5-5.1)
--- NOTE | 2020-12-04 09:36 | Discharge Summary ---
Date of Service December 04, 2020 Admission HPI Per Admitting Provider 85 YOF with past medical history of: CABG x3 2001 in [place], patient states she has one of her grafts that is blocked and they have tried multiple times to unblock it in [place] and [place], with no success, she follows with Dr. Ortiz from [facility]. She has HTN as well as HLD, and some dry keratotic skin, and hypothyroidism. Patient has experienced angina for which she takes her SL nitroglycerin. She takes this for times when she knows she is going to do inactivity that gives her angina. Patient came in today as she was tested positive for COVID last FridayPril2021. She has not gotten her vaccine, secondary to being unable to find a vaccine center that called her back. She lives with her daughter who is a before school and got the Jarad and Jarad vaccine on . Her daughter and her grandson both currently have Covid. I spoke with her daughter Fabiola and the have been feeling unwell since around the 07-24. She made her mom come to the emergency room today because she has not been taking her medications for the past couple days and her oral intake of food and water has been decreased for the week. The patient states that she just has no appetite and food tastes funny to her. She was also noted to be in new onset atrial fibrillation at this time that is rate controlled. Patient will be admitted and monitored for her response with COVID, she is not hypoxic, or hypotensive, no evidence of organ dysfunction, she received 2 liters of 0.9% saline in the emd for mild lactate elevation. Patient sees Dr. Ortiz and consult has been placed Principal Diagnosis Atrial fibrillation Discharge Exam Constitutional WD/WN, vitals as above Neck trachea midline, no thyromegaly Respiratory normal respiratory effort, lungs clear to auscultation Cardiovascular Rate/Rhythm: regular rate and + irregularly irregular Heart Sounds: normal S1 and normal S2; no murmur Extremities: normal capillary refill; no edema Gastrointestinal (Abdomen) normal bowel sounds, soft, nontender, no hepatosplenomegaly Musculoskeletal no cyanosis or clubbing, extremities motor strength 5/5 Skin no rashes, warm and dry Neurologic patellar DTR's 2+ bilat, sensation intact and PERRL, EOMI, accommodation nl, no face palsy, no dysarthria Psychiatric A+Ox3, euthymic affect Lymphatic no cervical or axillary lymphadenopathy Discharge Data Allergies Allergy/AdvReac Type Severity Reaction Status Date / Time No Known Allergies Allergy Unverified 12/02/20 14:56 Consultations 12/02/20 14:19 ED Decision to Admit Stat 12/02/20 20:09 Consult Cardiology Routine Hospital Course (1) Afib: New onset afib- patient nor daughter recall her having this before, even after her cardiac surgery - Patient had not been taking her metoprolol for two days prior to admission - this in conjunction with COVID 19 infection likely inciting event - K 3.5- given 40 meq potassium; MG 2.0 - CHADSVASC -2 - discussion had with patient and daughter regarding anticoagulation and risk factors for VKA vs. DOACs. - With her coronary history and now COVID infection; Will start patient on Xarelto 15 mg dose for renal function - Rate control option for time being as we are not sure when she went into AFIB goal <110 - TSH 1.2 heart rate well controlled on metoprolol 50mg BID continue Xarelto 15mg daily will follow up closely with Dr. Ortiz, he hopes that with metoprolol and COVID infection resolving she may convert back to NSR could consider cardioversion in a few weeks if she remains in afib (2) COVID-19: COVID 19- almost 2 weeks into illness, no hypoxemia, feeling better eating and drinking well no need for isolation (3) CAD (coronary artery disease): patient reports stable angina with CAD to [place] vessels, but with reported compromised bypass graft She has had no anginal symptoms since she has been here in the hospital." - Continue statin - Continue BB - Continue Isosorbide (4) HTN (hypertension): Goal <130 - Review from previous available data doesn't show great control - Appreciate cardiology for historical review (5) Hypothyroidism: Continue Synthroid - no acute needs TSH normal Total Time Total Time Spent Total Time Spent (In Minutes): 32 Total Time Includes: Examination of the Patient, Discharge Planning, Medication Reconciliation and Communication With Other Providers (Dr. Ortiz) Discharge Plan Discharge Items Patient Disposition: Home - Self-Care Reason For Visit: COVID AFIB Discharge Diagnosis: Atrial fibrillation COVID 19 positive test Condition on Discharge: Good Goals: follow up with Dr. Ortiz in 1-2 weeks Activity: Resume your previous activity Sexual Activity: Wait until after follow-up appointment Exercise/Sports: Wait until after follow-up appointment Weightbearing: Full weightbearing Non-emergency contact: Primary Care Provider and Gas Mask Assembler Call non-emergency contact if: you have any medication questions Follow-up/Referrals: Jacob Ortiz DO [Physician] - 12/18/20 2:40 pm (1-2 weeks) Ivy Child MD [Primary Care Provider] - 12/08/20 3:30 pm (1 week) Diet: Heart Healthy Addtl Attending Provider Instructions: Medications: - XARELTO: 15mg daily, blood thinner for stroke prevention with atrial fibrillation Atrial fibrillation rates are well controlled back on metoprolol 50mg twice a day, continue this Xarelto started for stroke prevention, take once a day Dr. Ortiz will follow up with you in the office, his hope is that with metoprolol and recovering from COVID, you will convert to sinus rhythm if you would remain in atrial fibrillation then he may consider cardioversion as outpatient COVID 19: over 10 days with illness, you no longer need to be in isolation never had hypoxemia the entire stay monitor yourself for any worsening shortness of breath but you should be fine and make a full recovery Pending Studies at Discharge: No Stand-Alone Forms: My [facility], Smoking Cessation Medications and DC Order Prescriptions: New Xarelto 15 mg Tablet 15 mg PO DAILY 30 Days Qty: 30 RF: 3 Continued atorvastatin [Lipitor] 10 mg tablet 10 mg PO DAILY RF: 0 sertraline [Zoloft] 100 mg tablet 100 mg PO DAILY RF: 0 isosorbide mononitrate 60 mg tablet extended release 24 hr 60 mg PO BID RF: 0 levothyroxine 50 mcg tablet 50 mcg PO DAILY RF: 0 triamcinolone acetonide 0.1 % ointment 1 applic TOPICAL BID RF: 0 metoprolol tartrate [Lopressor] 50 mg tablet 50 mg PO BID RF: 0 furosemide [Lasix] 20 mg tablet 20 mg PO DAILY PRN (Reason: fluid build up) RF: 0 oxycodone 5 mg tablet 5 mg PO Q4H PRN (Reason: pain) Qty: 15 RF: 0 ibuprofen 200 mg Tablet 400 mg PO Q6H PRN (Reason: fever/pain) RF: 0 Discharge Orders: Discharge Order (Routine); Ordered 12/04/20 Ordered By: Dominic Martinez Admission Data Admit Date/Time: 12/02/20 15:15 Attending Provider: Dominic Martinez Admit Provider: Lon Lima Primary Care Provider: Ivy Child Other Providers: Lon Lima ; Jacob Ortiz Other Interventions: Discharge Summary Assessment (RN) Last Done: 12/04/20 13:46 Coding Level of Care Code D/C Day Management >30 mins Diagnoses Afib I48.91 Atrial fibrillation type: unspecified COVID-19 U07.1 CAD (coronary artery disease) I25.118 Associated angina: with stable angina Coronary Disease-Associated Artery/Lesion type: [place] artery [place] vs. transplanted heart: [place] heart HTN (hypertension) I10 Hypertension type: unspecified Hypothyroidism E03.9 Hypothyroidism type: unspecified
--- NOTE | 2020-12-04 13:22 | XCELERA ---
[id number]
--- NOTE | 2020-12-14 11:04 | Coding Query ---
CODING QUERY To promote full compliance with coding requirements relating to patient care, provider participation is requested in all cases of helicopter mechanic uncertainty. Please assist us with the question(s) below: Coding Question(s): The ER H&P and Cardiology Consultation and Cardiology Progress Note document COVID-19 Pneumonia, however the H&P documents no evidence of pneumonia and the 12/03 Progress Note documents not covid pneumonia at this time, and there is no mention of pneumonia on the Discharge Summary. Please specify below, regarding the Pneumonia. ( ) Possible Pneumonia (COVID-19 Pneumonia) ( x ) Pneumonia is Ruled-Out ( ) Other: Please Specify Physician's Response(s): Thank you Abbi Canas Principal Diagnosis: "that condition established after study, to be chiefly responsible for occasioning the admission of the patient to the hospital for care." Co-Existing Principal Diagnosis: "when two or more diagnoses equally meet the criteria for principal diagnosis as determined by the circumstances of admission, diagnostic work up, and/or therapy provided, and the Alphabetic Index, Tabular List, or another coding guideline does not provide sequencing direction, any one of the diagnoses may be sequenced first." "When the physician has documented what appears to be a current diagnosis in the body of the record, but has not included the diagnosis in the final diagnostic statement, the physician should be asked whether the diagnosis should be added." (Source Coding Clinic 2 QTR90. p3-4) MICHELLE
== END 2020-12-04 15:40 | disposition home or self-care (01) | DRG 308 ==
LOC: ED 11:36 → SUATTDRO 15:15 → 2E 15:15

== ENCOUNTER 2023-11-30 08:34 | Inpatient (IN) ==
--- NOTE | 2023-11-30 08:46 | Emergency Department Note ---
Impression & Plan Elevated troponin ADMIT ED Provider Note HPI: History obtained from patient, EMS report via bedside RN. The patient is a 88-year-old female who presents emergency department after fall at home. Patient states that she fell when she was going to the restroom overnight on her bedroom floor. Patient states that her fall was relatively low velocity/impact. Patient states she was unable to get off the floor however. Patient states her daughter who she lives with later came to check on her in the room and found her on the floor. Patient estimates she was down on the floor for about 2 hours. On arrival here to the ED the patient is hemodynamically stable, she is alert, she denies any focal complaint of pain. ROS: - Per HPI Differential Diagnosis: Skull fracture, intracranial hemorrhage to include subdural hematoma, acute coronary syndrome, hip fracture, pelvic fracture, amongst other potential pathologies. *Outpatient medications and allergy history reviewed. PE: General: Alert HEENT: Normocephalic, trachea midline Eyes: Extraocular eye movement is intact, no scleral erythema Pulmonary: Clear to auscultation bilaterally, no wheezing Cardio: Regular rate and irregular rhythm GI: Abdomen is soft to palpation : No suprapubic tenderness MSK: No evidence of trauma or malformation of the extremities, no edema, patient maintains flexion at the hips bilaterally Skin: No evidence of rash Neuro: Alert, no focal deficits Psychiatric: Cooperative INDEPENDENT INTERPRETATIONS: monitoring manager: (As interpreted by myself): - An order was placed for continuous cardiac monitoring - Patient was noted to be in atrial fibrillation with a rate of 102 EKG: (As interpreted by myself): Rate: 102 Rhythm: Atrial fibrillation Intervals: QTc 513 ms, otherwise within normal limits ST changes: No ST elevation Time: 0847 Chest x-ray: (As interpreted by myself): No acute disease Interventions provided in ED: -Aspirin, IV fluid bolus Medical Decision Making: Patient overall appears well on arrival here to the ED, she is hemodynamically stable. IV was established and lab work obtained, patient was placed on telemetry monitor. Lab work shows a leukocytosis of 13.01, hemoglobin is normal, platelet count is slightly low at 100. CMP does not show any critical findings, there is a mild transaminitis with AST of 104 and ALT of 119. Patient denies any abdominal pain, denies any nausea or vomiting. Troponin is elevated at 633, EKG per my interpretation does not show any acute ischemic changes. Patient denies any chest pain. CT imaging of the head does not show any evidence of any acute intracranial process. Patient does maintain flexion at the hips bilaterally on my exam, she denies any hip pain, low suspicion for fracture. On my reassessment the patient is resting comfortably in bed, unclear source for her elevated troponin at this time, doubt ACS given lack of any chest pain and EKG that does not show acute ischemic changes. Patient will require admission for further management. Patient is in agreement. Patient was ordered aspirin and IV fluids. [facility] hospitalist service was consulted for admission. Case was discussed with the on-call hospitalist, Dr. Presley, and the patient was placed for admission in stable condition. I did attempt to contact the patient's daughter to update her on the patient's status and there was no answer. Consultants/Discussions held with other healthcare providers: -Hospitalist, Dr. Presley Disposition discussion held by myself with: -Patient Diagnosis: 1. Mechanical fall, acute 2. Ambulatory dysfunction, acute 3. Elevated troponin, acute 4. Transaminitis, mild, nonspecific 5. Leukocytosis, acute Disposition: Admission Terrell Swartz DO Emergency Medicine Past Med/Surg History Medical History (Updated 11/30/23 @ 09:50 by Terrell Swartz DO) Hyperparathyroidism History of breast cancer Nephrolithiasis Hypercalcemia COVID-19 Weakness Atrial fibrillation with rapid ventricular response Hypothyroidism HTN (hypertension) CAD (coronary artery disease) Pyelonephritis Surgical History (Updated 03/15/21 @ 15:01 by Asim Prado MD) S/P CABG x 3 Status post bilateral knee replacements H/O rotator cuff surgery Previous section S/P cholecystectomy Family History (Updated 03/15/21 @ 14:16 by Gloria Torres) Father Hypertension Myocardial infarction Mother Heart disease Other No significant family history Social History Smoking Status: Never smoker Hx Alcohol Use: No Hx Substance Use: No Preferred Language: Belarusian Communication Ability: Effective Stucco Plasterer Required: No Beliefs That Will Affect Care: None Current Living Situation: Family Feels Safe at Home: Yes Assistive Devices: Glasses and Hearing Aid - Bilateral Allergies Allergies Allergy/AdvReac Type Severity Reaction Status Date / Time No Known Allergies Allergy Unverified 06/07/21 13:32 Home Meds Home Medications Medication Instructions Recorded Confirmed atorvastatin 10 mg tablet (Lipitor) 10 mg PO DAILY 07/17/20 06/07/21 furosemide 20 mg tablet (Lasix) 20 mg PO DAILY PRN fluid build up 07/17/20 06/07/21 isosorbide mononitrate 60 mg 60 mg PO BID 07/17/20 06/07/21 tablet,extended release 24 hr levothyroxine 50 mcg tablet 50 mcg PO DAILY 07/17/20 06/07/21 metoprolol tartrate 50 mg tablet 50 mg PO BID 07/17/20 06/07/21 (Lopressor) sertraline 100 mg tablet (Zoloft) 100 mg PO DAILY 07/17/20 06/07/21 triamcinolone acetonide 0.1 % 1 applic topical BID 07/17/20 06/07/21 topical ointment ibuprofen 200 mg tablet 400 mg PO Q6H PRN fever/pain 12/02/20 06/07/21 aspirin 325 mg tablet 325 mg PO DAILY 03/15/21 06/07/21 multivitamin with minerals 1 tab PO DAILY 03/15/21 06/07/21 (Hair,Skin and Nails tablet) potassium gluconate 595 mg (99 mg) 595 mg PO DAILY 03/15/21 06/07/21 tablet vitamin B complex 1 cap PO DAILY 03/15/21 06/07/21 Previous Rx's Medication Instructions Recorded oxycodone 5 mg tablet 5 mg PO Q4H PRN pain #15 tabs 07/28/20 cholecalciferol (vitamin D3) 25 1,000 unit PO DAILY #30 caps 06/07/21 mcg (1,000 unit) capsule cinacalcet 30 mg tablet (Sensipar) 30 mg PO BID #60 tabs 06/07/21 Results & Data (ED) Vital Signs Vital Signs - 24 hr 11/30/23 08:38 11/30/23 08:48 11/30/23 09:00 Temperature 36.8 C Temperature Source Temporal Artery Scan Pulse Rate 95 H 94 H 93 H Pulse Rate from SpO2 Sensor 97 H Respiratory Rate 18 23 Respiratory Effort / Characteristics Non-Labored Spontaneous Respiratory Depth Normal Respiratory Pattern Regular Blood Pressure 126/96 Blood Pressure Mean 106 Blood Pressure Position Sitting Pulse Oximetry 98 96 Oxygen Delivery Method Room Air Room Air Sepsis Recent Fever Within 48 Hours No Sepsis New/Unexplained Change in Mental Status N/A Sepsis Action Taken by Nursing No Action Required Laboratory Data 11/30/23 08:58 11/30/23 08:58 Lab Results 11/30/23 Range/Units 08:58 WBC 13.01 H (4.8-10.8) K/ul RBC 4.36 (4.20-5.40) M/uL Hgb 13.6 (12.0-16.0) g/dl Hct 40.2 (37.0-47.0) % MCV 92.2 (80.0-100.0) fL MCH 31.2 (25.0-34.0) pg MCHC 33.8 (32.0-36.0) g/dL RDW Std Deviation 47.4 H (36.4-46.3) fL RDW Coeff of Adalberto 13.8 (11.5-14.5) % Plt Count 100 L (130-400) K/uL MPV 9.9 (9.4-12.4) fL Immature Gran % (Auto) 0.5 % Neut % (Auto) 90.6 % Lymph % (Auto) 3.2 % [place] % (Auto) 5.5 % Eos % (Auto) 0.0 % Baso % (Auto) 0.2 % Neut # (Auto) 11.77 H (1.40-6.50) K/uL Lymph # (Auto) 0.42 L (1.20-3.40) K/uL [place] # (Auto) 0.72 H (0.11-0.59) K/uL Eos # (Auto) 0.00 (0.00-0.50) K/uL Baso # (Auto) 0.03 (0.00-0.20) K/uL Immature Gran # (Auto) 0.07 (0.01-0.20) K/uL Toxic Vacuolation 1+ Sodium 138 (136-145) mmol/L Potassium 3.7 (3.5-5.1) mmol/L Chloride 107 (98-107) mmol/L Carbon Dioxide 21 (21-32) mmol/L Anion Gap 10 (3-11) BUN 28 H (6-23) mg/dl Creatinine 1.02 (0.6-1.2) mg/dl Est Cr Clr Drug Dosing 36.0 ml/min Est GFR ( Amer) 56.5 ml/min Est GFR (Non-Af Amer) 48.7 ml/min BUN/Creatinine Ratio 27.5 H (10-20) Glucose 111 H (70-99(Fasting)) mg/dl Calcium 10.2 (8.6-10.3) mg/dl Total Bilirubin 1.2 H (0.2-1.0) mg/dl AST 104 H (13-39) U/L ALT 119 H (7-52) U/L Alkaline Phosphatase 82 (34-104) U/L Troponin I High Sens 633.6 H* (0-14) pg/ml Total Protein 6.5 (6.0-8.3) gm/dl Albumin 3.5 (3.4-5.0) gm/dl Globulin 3.0 (2.5-4.0) gm/dl Albumin/Globulin Ratio 1.2 (0.9-2) Lipase 24 (11-82) U/L Administered Medications Sodium Chloride (Nss) 1,000 mls @ 999 mls/hr IV .Q1H1M ONE Stop: 11/30/23 09:43 Last Admin: 11/30/23 08:50 Dose: 999 mls/hr Documented By: MMN Discontinued Medications Aspirin (Aspirin Chew 324 Mg) 324 mg PO NOW STA Stop: 11/30/23 09:41 Last Admin: 11/30/23 09:54 Dose: 324 mg Documented By: [facility] Imaging Data Radiologist's Impression: Chest X-Ray 11/30/23 08:43 XR chest 1V portable CLINICAL HISTORY: Chest pain, nonspecific COMPARISON STUDY: Chest radiograph December 02, 2020. FINDINGS: Incidental note is made of surgical anchors within the right humeral head, median sternotomy wires and mediastinal surgical clips. Lung volumes are normal. There is no consolidation. Linear left basilar opacities favor atelectasis. There is no pneumothorax or pleural effusion. Cardiac size is stable. Mediastinal contours are normal. There is no evidence for pulmonary edema. IMPRESSION: No acute cardiopulmonary findings. ACT 112: Negative or not required by law. Electronically signed by: Diogenes Galan M.D. 11/30/2023 9:[address] 11/30/23 08:43 CT OF THE HEAD WITHOUT CONTRAST CLINICAL HISTORY: fall COMPARISON STUDY: Head CT July 17, 2020. CT DOSE: 625.8 mGy.cm TECHNIQUE: Helical axial images of the head were obtained without IV contrast. Automated exposure control was utilized for the study. A dose lowering technique was utilized adhering to the principles of ALARA. FINDINGS: No acute intracranial hemorrhage, midline shift or mass effect is present. White matter hypodensity suggests small vessel disease. Prominence of the extra-axial spaces is due to atrophy. The ventricular system is unremarkable. The basal cisterns are patent. No extra-axial collections are present. There are no findings to suggest acute dural sinus thrombosis or acute territorial infarct. No significant calvarial abnormalities are present. Visualized portions of the sinuses and mastoid air cells are clear. IMPRESSION: 1. No acute intracranial findings. 2. No calvarial fractures. ACT 112: Negative or not required by law. Electronically signed by: Diogenes Galan M.D. 11/30/2023 9:25 AM Discharge Plan Visit Data Chief Complaint: Fall ED Provider: Terrell Swartz Discharge Problem: Elevated troponin Forms Stand Alone Forms: My [facility] Prescriptions Prescriptions: No Action cholecalciferol (vitamin D3) 25 mcg (1,000 unit) capsule 1,000 unit PO DAILY Qty: 30 0RF aspirin 325 mg tablet 325 mg PO DAILY potassium gluconate 595 mg (99 mg) tablet 595 mg PO DAILY multivitamin with minerals [Hair,Skin and Nails] Tablet 1 tab PO DAILY vitamin B complex Capsule 1 cap PO DAILY cinacalcet [Sensipar] 30 mg tablet 30 mg PO BID Qty: 60 2RF atorvastatin [Lipitor] 10 mg tablet 10 mg PO DAILY sertraline [Zoloft] 100 mg tablet 100 mg PO DAILY isosorbide mononitrate 60 mg tablet extended release 24 hr 60 mg PO BID levothyroxine 50 mcg tablet 50 mcg PO DAILY triamcinolone acetonide 0.1 % ointment 1 applic TOPICAL BID metoprolol tartrate [Lopressor] 50 mg tablet 50 mg PO BID furosemide [Lasix] 20 mg tablet 20 mg PO DAILY PRN (Reason: fluid build up) oxycodone 5 mg tablet 5 mg PO Q4H PRN (Reason: pain) Qty: 15 0RF Rx Instructions: Initial Treatment ibuprofen 200 mg Tablet 400 mg PO Q6H PRN (Reason: fever/pain) Referrals Referrals: Ivy Child MD [Primary Care Provider] -
[2023-11-30] MEDS: SODIUM CHLORIDE 0.9% 1,000 ML IV ONE (08:50)
--- OUTSIDE RECORDS SUMMARY | 2023-11-30 08:51 | External Medical Summary | Continuity of Care Document ---
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) - 11/13/23 Changing skin lesion(Discharge Diagnosis) - 11/13/23 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(Discharge Diagnosis) - 11/13/23 Ruptured epidermal cyst(Discharge Diagnosis) - 11/13/23 Actinic keratoses(Discharge Diagnosis) - 11/13/23 Discharge Disposition: Home or Self Care Attending Physician: MD Hardin Cassandra Referring Physician: MD Hardin Cassandra Allergies, Adverse Reactions, Alerts No Known Allergies Immunizations Given and Recorded Vaccine Date Status Refusal Reason influenza virus vaccine, inactivated 05/28/23 Give n influenza virus vaccine, inactivated 06/07/22 Give n influenza virus vaccine, inactivated 05/15/20 Give n Medications aspirin 81 mg oral delayed release tablet Start: 02/14/23 11:08:00 EDT, 1 tab, PO, Daily, Disp# 120 tab, Refills: 3, other Start Date: 02/14/23 Status: Ordered atorvastatin 10 mg oral tablet Start: 07/01/23 12:10:00 EST, See Instructions, Disp# 90 tab, Refills: 3, Take 1 tablet by mouth once daily, Pharmacy: [id number] Start Date: 07/01/23 Status: Ordered Fish Oil 500 mg oral capsule Start: 05/10/19 10:14:00 EDT, 2 cap Start Date: 05/10/19 Status: Ordered fluorouracil 5% topical cream Start: 12/07/21 9:26:00 EDT, 1 appl, topical, qhs, Disp# 40 g, Refills: 1, apply to legs, Pharmacy:[facility] [id number] Start Date: 12/07/21 Status: Ordered furosemide 20 mg oral tablet Start: 04/18/22 11:59:00 EDT, See Instructions, Disp# 45 tab, Refills: 3, TAKE 1 TABLET BY MOUTH PRN SWELLING Currently 2 x a week, Pharmacy: [facility] [id number] Start Date: 04/18/22 Status: Ordered isosorbide mononitrate 60 mg oral tablet, extended release Start: 09/18/23 14:31:00 EST, 1 tab, PO, bid, Disp# 180 tab, Refills: 1, Pharmacy: [place] [id number] Start Date: 09/18/23 Status: Ordered levothyroxine 50 mcg (0.05 mg) oral tablet Start: 10/30/23 16:40:00 EDT, 1 tab, PO, Daily, Disp# 90 tab, Refills: 0, Brand Medically Necessary, Pharmacy: [place] [id number] Start Date: 10/30/23 Status: Ordered Macular Health Formula oral capsule Start: 07/16/19 15:25:00 EST, 2 cap, PO, Daily Start Date: 07/16/19 Status: Ordered Metoprolol Tartrate 50 mg oral tablet Start: 09/18/23 14:31:00 EST, 1 tab, PO, bid, Disp# 180 tab, Refills: 1, Pharmacy: [place] [id number] Start Date: 09/18/23 Status: Ordered multivitamin Start: 05/10/19 10:13:00 EDT, 1 tab, PO, Daily Start Date: 05/10/19 Status: Ordered mupirocin 2% topical ointment Start: 05/13/19 14:48:00 EDT, 1 appl, topical, bid, Disp# 30 g, Refills: 2, apply to wounds on legs, Pharmacy: [facility] 223 Start Date: 05/13/19 Status: Ordered nitroglycerin 0.4 mg sublingual spray Start: 02/14/23 11:57:00 EDT, 1 spray, SL, q5min, Disp# 4.9 g, Refills: 6, PRN: as needed for chestpain, Pharmacy: [facility] #[id number] Start Date: 02/14/23 Status: Ordered potassium ACETATE Start: 05/10/19 10:14:00 EDT, See Instructions Start Date: 05/10/19 Status: Ordered sertraline 100 mg oral tablet Start: 09/18/23 14:31:00 EST, 1 tab, PO, Daily, Disp# 90 tab, Refills: 1, Pharmacy: [facility] 2229 Start Date: 09/18/23 Status: Ordered triamcinolone 0.1% topical cream Start: 09/29/23 22:52:00 EST, 1 appl, topical, bid, Disp# 454 g, Refills: 1, Apply up to twice daily as needed for itch/rash, Pharmacy: [facility] [id number] Start Date: 09/29/23 Stop Date: 11/28/23 Status: Ordered triamcinolone 0.1% topical ointment Start: 01/31/20 8:35:00 EDT, 1 appl, topical, bid, Disp# 454 g, Refills: 3, apply to lower legs, Pharmacy: [facility] [id number] Start Date: 01/31/20 Status: Ordered Vitamin B Complex Start: 05/10/19 10:14:00 EDT Start Date: 05/10/19 Status: Ordered Vitamin D2 Start: 05/10/19 10:14:00 EDT, 2,000 Int_Unit =, PO, Daily Start Date: 05/10/19 Status: Ordered Mental Status 11/13/23 Barriers to Learning one year None evide nt Mandatory Health Literacy Documentation Yes Health Literacy Communication Barriers N ever Primary Language Danish Problem List Condition Confirmation Course Effective Dates Status H ealth Status Informant AP (angina pectoris) Confirmed Active Afib Confirmed Active Early stage skin cancer Confirmed Active Chronic depression Confirmed Active Chronic low back pain Confirmed Active CAD (coronary artery disease) Confirmed Active COVID-19 virus infection Confirmed Active Dehydration Confirmed Active Chronic eustachian tube dysfunction Confirmed Active Hx of CABG Confirmed Active Hypercalcemia Confirmed Active Hypercalcemia Confirmed Active Nephrolithiasis Confirmed Active Low back pain Confirmed Active Breast cancer 1 Confirmed Active Focal non-cyclical breast pain Confirmed Active Non-healing surgical wound Confirmed Active 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 Lumpectomy & XRT. 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 Discharge Diagnosis 11/13/23 Non-Specified Ruptured epidermal cyst Discharge Diagnosis 11/13/23 Non-Specified Actinic keratoses Discharge Diagnosis 11/13/23 Non-Specified Procedures Procedure Date Related Diagnosis Body Site Status Excision 11/13/23 Completed Punch biopsy of skin 09/29/23 Comp leted Shave biopsy of skin 09/29/23 Comp leted Shave biopsy and cauterizati on of skin 1 07/31/23 Completed Shave biopsy and cauterization of skin 12/03/22 Completed Shave biopsy 2 07/18/22 Completed Shave biopsy and cauterization of skin 06/20/22 Completed Shave biopsy and cauterization of skin 06/20/22 Completed Shave biopsy and cauterization of skin 06/20/22 Completed Mohs micrographic surgery 01/15/22 Completed Shave biopsy 12/13/21 Completed Shave biopsy 12/13/21 Completed Electrodesiccation with curettage 3 10/18/21 Completed Shave biopsy and cauterization of skin 06/08/21 Completed Shave biopsy and cauterization of skin 10/27/20 Completed Shave biopsy and cauterization of skin 08/24/20 Completed Mammogram 4 06/30/20 Completed Shave biopsy and cauterization of skin 06/23/20 Completed Shave biopsy 04/21/20 Completed Shave biopsy and cauterisati on of skin 5 02/29/20 Completed CXR - Chest X-ray 6 02/09/20 Compl eted Diagnostic mammogram 7 02/09/20 Co mpleted Shave biopsy and cauterisati on of skin 8 01/31/20 Completed Mammogram 9 06/25/19 Completed Excision biopsy 10 06/10/19 Comple monica Shave biopsy and cauterizati on of skin 11 05/13/19 Completed Surgery 2005 Completed Surgery 12 2003 Completed Surgery 13 2003 Completed Open heart surgery 2002 Comple monica Carpal tunnel 2001 Completed Rotator cuff 2001 Completed Cholecystotomy 1999 Completed Knee replacement 1997 Complete d Knee replacement 1997 Complete d Cataract extraction Compl eted Surgery 14 Completed 11. right lower ritter 2. left ritter 2right lower ritter left frontal scalp 3a) right earlobe B) left ritter proximal C) left ritter lower 4[facility] Impression: ACR BI-RADS CATEGORY 2: BENIGN 1. No evidence of malignancy 5Left Wrist w/ ED&C Base of right middle finger w/ED&C 6No acute process. 7LEFT BREAST No suspicious mammographic or targeted sonographic abnormality or evidence of malignancy in the area of pain in the 2:00 left breast, reported by the patient. Continued clinical follow up s recommended. 8w/ ED&C 9No mammographic evidence of malignancy. One year follow up recommended. 10right lower leg 11with ED&C 12foot surgery 13lumpectomy 14c- section x 3 1961 1963 1964 Social History Social History Type Response Smoking Status Never smoked cigaret lion Sex Female Dermatology Outpt Proc * MD Wilfred, Mable: PERFORM, MODIFY, MODIFY, MODIFY Event Display: Dermatology Outpt Proc Authored Date: [id number] Name:LARS JAVED Patient Number:[id number] :1935 Date of Service:11/13/2023 EXCISION MALIGNANT LESION PREOPERATIVE DIAGNOSIS:Squamous cell carcinoma Diagnosis ([id number]) 1.Skin, L dorsal forearm, shave biopsy: -Squamous cell carcinoma, base not visualized POSTOPERATIVE DIAGNOSIS: Same LOCATION:Left dorsal forearm OPERATION PERFORMED: Elliptical excision of above with intermediate layered closure. PRE-OP LESION SIZE: 1 cm MARGINS: 5 mm EXCISIONAL DEFECT SIZE (INCLUDING MARGINS): 2 cm FINAL SUTURE LINE LENGTH:4 cm SUTURES:4-0 Monocryl, 4-0 Vicryl Rapide SURGEON: Mable Hardin MD ASSISSTANT:Noemi Bernabe LPN INDICATIONS:Excision for definitive treatment of biopsy proven malignancy,squamous cell carcinoma OPERATION: The patient was taken to the surgical suite where the benefits and risks of the procedure were explained. After time was given for questions, a signed consent was obtained. The proposed excision area was prepped with an antiseptic solution and draped in the usual sterile fashion.0.5% lidocaine plus epinephrine plus bicarbonate was infiltrated until adequate anesthesia was obtained. Approximately 6ml were given. A #15 blade was used to excise the lesion with 5 mm marginsin a fusiform shape down to the deep subcutaneous fat. The excision was then completed within thedeep subcutaneous plane using the same blade and a pair of small curved Iris scissors. A notch was placed at the proximal apex of the specimen. The specimen was placed in a formalin-filled container labeled with the patient's identifying data and sent to pathology for examination. The wound edges were undermined with a combination of sharp and blunt dissection in the superficial subcutaneous plane and hemostasis was achieved with spot electrodesiccation and suture ligation as needed. The long axis of the closure was oriented so as to parallel the relaxed skin tension lines as much as possible to minimize any pull or distortion on nearby anatomic structures. The defect was then closed in a layered fashion consisting of absorbable sutures in the deep subcutaneous plane followed byseparate closure of the superficial subcutaneous tissue and skin with superficial cutaneous sutures. Layered closure was required to eliminate space, relieve tension, prevent deformity, and approximate the edges of the defect which extended to the deep subcutaneous tissues. A pressure dressing was placed with petrolatum ointment, non-stick pad, gauze, and paper tape. Estimated blood loss was less than 5 ml and there were no complications. The patient received both written and verbal wound care instructions and left the Dermatology Clinic in good condition. Electrodesiccation and Curettage Destruction of a Malignant Lesion PREOPERATIVE DIAGNOSIS: squamous cell carcinoma DERMPATH ACCESSION: Diagnosis ([id number]) 2.Skin, L knee, shave biopsy: -Squamous carcinoma, base not visualized POSTOPERATIVE DIAGNOSIS: Same LOCATION:L knee LESION DIAMETER (after first pass): 2.1 cm OPERATION PERFORMED: Electrodesiccation and curettage destruction. SURGEON:Mable Hardin MD PREOPERATIVE MEDICATIONS: None POSTOPERATIVE MEDICATIONS: None INDICATIONS: Patient presents with a bx demonstrated squamous cell carcinoma. Treatment options were discussed, and the patient favored curettage destruction. The patient was educated regarding scarring and wound healing, and elects to proceed. OPERATION:The patient was taken to the surgical suite where the benefits and risks of the procedure were explained. After time was given for questions, a signed consent was obtained. The patient was then placed on the operating table in the supine position. The prior biopsy site was identified and confirmed, then prepped with an antiseptic solution and draped in the usual fashion.0.5% lidocaine with epinephrine was infiltrated until adequate anesthesia was obtained. Approximately 3 cc were given. The lesion was then curetted with a 4 mm curette to remove all visible portions of the tumor, followed by hyfrecation. Curettage followed by hyfrecation was repeated for a total of 3 cycles until tumor eradication was felt to be complete. Hemostasis was obtained with aluminum chloride application. The wound was then cleansed, and a pressure dressing was placed with petrolatum ointment, non-stick pad, and gauze and paper tape. Estimated blood loss was less than 5 mland there were no complications. The patient received both written and verbal wound care instructions and left the Dermatology Clinic in good condition. Shave Biopsy Procedure Note A skin biopsy was performed after a time out (patient identified with full name and date, site located and confirmed with team members) and verbal informed consent was obtained.Risks (infection, scar, bleeding) and benefits (proper diagnosis and treatment) were reviewed.Alternative options were discussed if applicable.Time was given to address and answer all questions.Photograph was taken to document location. Locations: 1. Rmid ritter, HAK vs. SCC 2. L distal ritter, HAK vs. SCC Skin prep: isopropyl alcohol Anesthesia: 0.5% lidocaine with epinephrine Method: shave Hemostasis/Closure:hyfrecation Dressing: Vaseline and band-aid Verbal and written wound care instructions given.Patient was informed that further procedure(s)or treatment(s) may be needed pending pathology results.Patient is instructed to call should any problems or concerns arise.The patient agreed to call the office to obtain the test results if they have not been communicated to them within 2 weeks. Intralesional Kenalog Injection Intralesional Kenalog injection was performed following verbal consent, time out (patient name, birthdate and treatment site were double checked) and allowing time for questions. Alternative therapies were discussed, and education on healing, risk of atrophy, dyspigmentation, infection were performed. Patient tolerated procedure well without complication. 3.Skin, R distal lateral lower leg, shave biopsy: -Cystic epithelial proliferation and granulation tissue(see Comment): Comment: Histological differential includes a ruptured epidermal inclusion cyst, sinus tract, or proliferating epithelial cyst. Clinical pathological question 80 helpful Site: R distal lateral lower leg Quantity/concentration: 0.5 mL of 20 mg/mL - Recommend starting LE Unna boot wraps with compression to aid with healing, patient agreeable - Dressing applied today: Vaseline, Xeroform gauze over wound, thenUnna wrap, Kerlix and Coban from base of toes to just below popliteal fossa - Patient instructed to keep dressing dry, if too tight understands that she is to cut to loosen wrap at top and bottom and contact us Additionally, to hyperkeratotic pinkmacules consistent with actinic keratoses at herright proximal ritter were treated with curettage destruction. Both sites were cleaned with Hibiclens, anesthesia was obtained with 0.5% lidocaine with epinephrine buffered with bicarbonate,a total of 2 mL administered. Each site was treated with curettagefollowed byhyfrecation x 2 cycles. Patient tolerated the procedure well without complication. Follow-up 1 week Images 2023-11-13 11:16:35 2023-11-13 11:18:52 2023-11-13 11:19:00 2023-11-13 11:19:06 2023-11-13 11:19:15 2023-11-13 11:19:24 2023-11-13 12:03:09 Electronic Signature on File Electronically Reviewed/Signed by: Mable Hardin MD Author Signature Dt/Tm:11/13/2023 04:35 PM Department of Dermatology Electronically Reviewed/Signed by: Mable Hardin MD Cosigner Signature Dt/Tm: 11/13/2023 04:44 PM Department of Dermatology CS Patient Care team information Care Team Personnel Name: MD Child Amy L Position: Physician - Family Med Member Role: Primary Care Provider Address: Address: [address] [facility] [address] [place] [address] [place] Name: WALT Carter Christina L Position: Physician - Podiatry Member Role: Lifetime Relationship Address: Address: [address] [place] [address] [place] Care Team Related Persons Name: VICTOR HUGO CHEUNG Address: home [address] [place], [id number]
--- OUTSIDE RECORDS SUMMARY | 2023-11-30 08:51 | External Medical Summary | Continuity of Care Document ---
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 Name Role Phone Ivy Child Primary Care Physician [phone] Encounter [facility] [id number] Date(s): 11/20/23 - 11/20/23 [facility] [address] [facility] [address] [place] [phone] [place] Discharge Disposition: Home or Self Care Attending [...] 1 tablet by mouth once daily, Pharmacy: [facility] [id number] Start Date: 07/01/23 Status: Ordered Fish Oil 500 mg oral capsule Start: 05/10/19 10:14:00 EDT, 2 cap Start Date: 05/10/19 Status: Ordered fluorouracil 5% topical cream Start: 12/07/21 9:26:00 EDT, 1 appl, topical, qhs, Disp# 40 g, Refills: 1, apply to legs, Pharmacy:[id number] Start Date: 12/07/21 Status: Ordered furosemide 20 mg oral tablet Start: 04/18/22 11:59:00 EDT, See Instructions, Disp# 45 tab, Refills: 3, TAKE 1 TABLET BY MOUTH PRN SWELLING Currently 2 x a week, Pharmacy: [place] [id number] Start Date: 04/18/22 Status: Ordered isosorbide mononitrate 60 mg oral tablet, extended release Start: 09/18/23 14:31:00 EST, 1 tab, PO, bid, Disp# 180 tab, Refills: 1, Pharmacy: [place] [id number] Start Date: 09/18/23 Status: Ordered levothyroxine 50 mcg (0.05 mg) oral tablet Start: 10/30/23 16:40:00 EDT, 1 tab, PO, Daily, Disp# 90 tab, Refills: 0, Brand Medically Necessary, Pharmacy: [facility] 2229 Start Date: 10/30/23 Status: Ordered Macular Health Formula oral capsule Start: 07/16/19 15:25:00 EST, 2 cap, PO, Daily Start Date: 07/16/19 Status: Ordered Metoprolol Tartrate 50 mg oral tablet Start: 09/18/23 14:31:00 EST, 1 tab, PO, bid, Disp# 180 tab, Refills: 1, Pharmacy: [place] [id number] Start Date: 09/18/23 Status: Ordered multivitamin Start: 05/10/19 10:13:00 EDT, 1 tab, PO, Daily Start Date: 05/10/19 Status: Ordered mupirocin 2% topical ointment Start: 05/13/19 14:48:00 EDT, 1 appl, topical, bid, Disp# 30 g, Refills: 2, apply to wounds on legs, Pharmacy: [facility] 223 Start Date: 05/13/19 Status: Ordered nitroglycerin 0.4 mg sublingual spray Start: 02/14/23 11:57:00 EDT, 1 spray, SL, q5min, Disp# 4.9 g, Refills: 6, PRN: as needed for chestpain, Pharmacy: [facility] #[id number] Start Date: 02/14/23 Status: Ordered potassium ACETATE Start: 05/10/19 10:14:00 EDT, See Instructions Start Date: 05/10/19 Status: Ordered sertraline 100 mg oral tablet Start: 09/18/23 14:31:00 EST, 1 tab, PO, Daily, Disp# 90 tab, Refills: 1, Pharmacy: [facility] 2229 Start Date: 09/18/23 Status: Ordered triamcinolone 0.1% topical cream Start: 09/29/23 22:52:00 EST, 1 appl, topical, bid, Disp# 454 g, Refills: 1, Apply up to twice daily as needed for itch/rash, Pharmacy: [facility] 2[facility] Start Date: 09/29/23 Stop Date: 11/28/23 Status: Ordered triamcinolone 0.1% topical ointment Start: 01/31/20 8:35:00 EDT, 1 appl, topical, bid, Disp# 454 g, Refills: 3, apply to lower legs, Pharmacy: [facility] [id number] Start Date: 01/31/20 Status: Ordered Vitamin B Complex Start: 05/10/19 10:14:00 EDT Start Date: 05/10/19 Status: Ordered Vitamin D2 Start: 05/10/19 10:14:00 EDT, 2,000 Int_Unit =, PO, Daily Start Date: 05/10/19 Status: Ordered Problem List Condition Confirmation Course Effective Dates [...] breast CA in 2002. Lumpectomy & XRT. Procedures Procedure Date Related Diagnosis Body Site [...] on of skin 11 05/13/19 Completed Surgery 2006 Completed Surgery 12 2004 Completed Surgery 13 2004 Completed Open heart surgery 2002 Comple [facility] Carpal tunnel 2000 Completed Rotator cuff 2000 Completed Cholecystotomy 1999 Completed Knee replacement 1997 Complete d Knee replacement 1997 Complete d Cataract extraction Compl eted Surgery 14 Completed 11. right lower ritter 2. left ritter 2right lower ritter left frontal scalp 3a) right earlobe B) left ritter proximal C) left [facility] lower [facility] Impression: ACR BI-RADS CATEGORY 2: BENIGN 1. [...] Status Never smoked cigaret lion Sex Female Patient Care team information Care Team Personnel Name: MD Child Amy L Position: Physician - Family Med Member Role: Primary Care Provider Address: Address: [address] [facility] [address] [place] [address] Name: WALT Carter Christina L Position: Physician - Podiatry Member Role: Lifetime Relationship Address: Address: [address] [place] [address] [place] Care Team Related Persons Name: VICTOR HUGO CHEUNG Address: [address] [place], [id number]
--- OUTSIDE RECORDS SUMMARY | 2023-11-30 08:51 | External Medical Summary | Continuity of Care Document ---
Author Name Unknown Organization [facility] [address] [facility] [address] [id number] Care Team Providers Care Newscast Producer Name Role Phone ChildIvy Primary Care Physician [phone] [id number] Date(s): 11/27/23 - 11/27/23 [facility] [address] [address] [phone] [place] Encounter Diagnosis Leg wound, right(Discharge Diagnosis) - 11/28/23 Inflamed epidermoid cyst of skin(Discharge Diagnosis) - 11/28/23 History of squamous cell carcinoma of skin(Discharge Diagnosis) - 11/28/23 History of actinic keratoses(Discharge Diagnosis) - 11/28/23 Discharge Disposition: Home or Self Care Attending Physician: MD Hardin Cassandra Referring Physician: MD Hardin Cassandra Allergies, Adverse Reactions, Alerts No Known Allergies Assessment and Plan Extracted from: Title:Dermatology Office Visit Note Author:Lewis llamas MD, Mable Date:11/27/23 1.Leg wound, right 2.Inflamed epidermoid cyst of skin 3.History of actinic keratoses 4.History of squamous cell carcinoma of skin - R lower leg wounds appear to be healing well without signs of infection after ED&C, biopsies, curettage destruction and ILK injection to cyst - Recommend continuing RLE Unna boot wraps with compression to aid with healing, patient agreeable - Dressing applied today: Vaseline, Xeroform gauze over wound, thenUnna wrap, Kerlix and Coban from base of toes to just below popliteal fossa - Patient instructed to keep dressing dry, if too tight understands that she is to cut to loosen wrap at top and bottom and contact us Patient to take the wrap off at home in 1 week and start daily wound care at home, f/u in 3 weeks. She will contact the office with any concerns prior to follow- up. Immunizations Given and Recorded Vaccine Date Status [...] 1 tablet by mouth once daily, Pharmacy: [id number] Start Date: 07/01/23 Status: Ordered Fish Oil 500 mg oral capsule Start: 05/10/19 10:14:00 EDT, 2 cap Start Date: 05/10/19 Status: Ordered fluorouracil 5% topical cream Start: 12/07/21 9:26:00 EDT, 1 appl, topical, qhs, Disp# 40 g, Refills: 1, apply to legs, Pharmacy:[id number] Start Date: 12/07/21 Status: Ordered furosemide 20 mg oral tablet Start: 04/18/22 11:59:00 EDT, See Instructions, Disp# 45 tab, Refills: 3, TAKE 1 TABLET BY MOUTH PRN SWELLING Currently 2 x a week, Pharmacy: [id number] Start Date: 04/18/22 Status: Ordered isosorbide mononitrate 60 mg oral tablet, extended release Start: 09/18/23 14:31:00 EST, 1 tab, PO, bid, Disp# 180 tab, Refills: 1, Pharmacy: [id number] Start Date: 09/18/23 Status: Ordered levothyroxine 50 mcg (0.05 mg) oral tablet Start: 10/30/23 16:40:00 EDT, 1 tab, PO, Daily, Disp# 90 tab, Refills: 0, Brand Medically Necessary, Pharmacy: [id number] Start Date: 10/30/23 Status: Ordered Macular Health Formula oral capsule Start: 07/16/19 15:25:00 EST, 2 cap, PO, Daily Start Date: 07/16/19 Status: Ordered Metoprolol Tartrate 50 mg oral tablet Start: 09/18/23 14:31:00 EST, 1 tab, PO, bid, Disp# 180 tab, Refills: 1, Pharmacy: [facility] Start Date: 09/18/23 Status: Ordered multivitamin Start: 05/10/19 10:13:00 EDT, 1 tab, PO, Daily Start Date: 05/10/19 Status: Ordered mupirocin 2% topical ointment Start: 05/13/19 14:48:00 EDT, 1 appl, topical, bid, Disp# 30 g, Refills: 2, apply to wounds on legs, Pharmacy: [id number] Start Date: 05/13/19 Status: Ordered nitroglycerin 0.4 mg sublingual spray Start: 02/14/23 11:57:00 EDT, 1 spray, SL, q5min, Disp# 4.9 g, Refills: 6, PRN: as needed for chestpain, Pharmacy: [id number] Start Date: 02/14/23 Status: Ordered potassium ACETATE Start: 05/10/19 10:14:00 EDT, See Instructions Start Date: 05/10/19 Status: Ordered sertraline 100 mg oral tablet Start: 09/18/23 14:31:00 EST, 1 tab, PO, Daily, Disp# 90 tab, Refills: 1, Pharmacy: [id number] Start Date: 09/18/23 Status: Ordered triamcinolone 0.1% topical cream Start: 09/29/23 22:52:00 EST, 1 appl, topical, bid, Disp# 454 g, Refills: 1, Apply up to twice daily as needed for itch/rash, Pharmacy: [id number] Start Date: 09/29/23 Stop Date: 11/28/23 Status: Ordered triamcinolone 0.1% topical ointment Start: 01/31/20 8:35:00 EDT, 1 appl, topical, bid, Disp# 454 g, Refills: 3, apply to lower legs, Pharmacy: [id number] Start Date: 01/31/20 Status: Ordered Vitamin B Complex Start: 05/10/19 10:14:00 EDT Start Date: 05/10/19 Status: Ordered Vitamin D2 Start: 05/10/19 10:14:00 EDT, 2,000 Int_Unit =, PO, Daily Start Date: 05/10/19 Status: Ordered Mental Status 11/27/23 Barriers to Learning one year None evide nt Mandatory Health Literacy Documentation Yes Health Literacy Communication Barriers N ever Primary Language [place] Problem List Condition Confirmation Course Effective Dates [...] Diagnosis Diagnosis Type Effective Dates Health Status Clinical Service Informant Leg wound, right Discharge Diagnosis 11/28/23 History of squamous cell carcinoma of skin Discharge Diagnosis 11/28/23 Inflamed epidermoid cyst of skin Discharge Diagnosis 11/28/23 History of actinic keratoses Discharge Diagnosis 11/28/23 Procedures Procedure Date Related Diagnosis Body Site [...] Surgery 13 2003 Completed Open heart surgery 2001 Comple monica Carpal tunnel 2000 Completed Rotator cuff 2000 Completed Cholecystotomy 1999 Completed Knee replacement 1997 Complete d Knee replacement 1997 Complete d Cataract extraction Compl eted Surgery 14 Completed 11. right lower ritter 2. left ritter 2right lower ritter left frontal scalp 3a) right earlobe B) left ritter proximal C) left ritter lower [facility] Impression: ACR BI-RADS CATEGORY 2: BENIGN 1. [...] 13lumpectomy 14c- section x 3 1961 1963 1965 Social History Social History Type Response Smoking Status Never smoked cigaret lion Sex Female Dermatology Outpatient Note * MD Wilfred, Mable: PERFORM Event Display: Dermatology Outpt Note Authored Date: [id number] Chief Complaint Recheck and R leg unna wrap. History of Present Illness Patient is an 88 yo CF, following up for wound check and possible Unna boot compression wrap s/p ED&C of SCC, biopsy x2, curettage destruction of AKs and ILK injections of a cyst all at her R lower leg on 11/13/23 Patient reports that she took Unna boot off earlier today to shower, did not apply anything to skin after showering. Tolerating wrap well. Physical Exam A&O x 3, well-appearing, well-groomed, pleasant Focused skin exam ofof R lower leg reveals multiple healing wounds with adherent hemorrhagic crust, site of cyst at R lateral distal lower leg smaller and with healthy granulation tissue Assessment/Plan 1.Leg wound, right 2.Inflamed epidermoid cyst of skin 3.History of actinic keratoses 4.History of squamous cell carcinoma of skin - R lower leg wounds appear to be healing well without signs of infection after ED&C, biopsies,curettage destruction and ILK injection to cyst - Recommend continuing RLE Unna boot wraps with compression to aid with healing, patient agreeable - Dressing applied today: Vaseline, Xeroform gauze over wound, thenUnna wrap, Kerlix and Coban from base of toes to just below popliteal fossa - Patient instructed to keep dressing dry, if too tight understands that she is to cut to loosen wrap at top and bottom and contact us Patient to take the wrap off at home in 1 week and start daily wound care at home, f/u in 3 weeks. She will contact the office with any concerns prior to follow-up. 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 Hypercalcemia Hypercalcemia Low back pain Medicare annual wellness visit, subsequent Nephrolithiasis Non-healing surgical wound PAF (paroxysmal atrial fibrillation) PVD (peripheral vascular disease) Squamous cell carcinoma VMR (vasomotor rhinitis) Historical Acute bilateral back pain Acute upper respiratory infection Procedure/Surgical History Excision| Service Date: 11/13/2023unch biopsy of skin| Service Date: 09/29/2023Shave biopsy of skin| Service Date: 09/29/2023Shave biopsy and cauterization of skin| Service Date: 07/31/2023Shave biopsy and cauterization of skin| Service Date: 12/03/2022Shave biopsy| Service Date: 07/18/2022have biopsy and cauterization of skin| Service Date: 06/20/2022have biopsy and cauterization of skin| Service Date: 06/20/2022have biopsy and cauterization of skin| Service Date: 06/20/2022Mohs micrographic surgery| Service Date: 01/15/2022have biopsy| Service Date: 12/13/2021have biopsy| Service Date: 12/13/2021Electrodesiccation with curettage| Service Date: 10/18/2021have biopsy and cauterization of skin| Service Date: 06/08/2021have biopsy and cauterization of skin| Service Date: 10/27/2020have biopsy and cauterization of skin| Service Date:08/24/2020Mammogram| Service Date: 06/30/2020Shave biopsy and cauterization of skin| Service Date: 06/23/2020Shave biopsy| Service Date: 04/21/2020Shave biopsy and cauterisation of skin| Service Date: 02/29/2020Diagnostic mammogram| Service Date: 02/09/2020CXR - Chest X-ray| Service Date: 02/09/2020Shave biopsy and cauterisation of skin| Service Date: 01/31/2020Mammogram| Service Date: 06/25/2019Excision biopsy| Service Date: 06/10/2019Shave biopsy and cauterization of skin| Service Date: 05/13/2019Surgery| Service Date: 2005Surgery| Service Date: 2003Sur alicia| Service Date: 2003Open heart surgery| Service Date: 2001Carpal tunnel| Service Date: 2000Rotator cuff| Service Date: 2000Cholecystotomy| Service Date: 1999Knee replacement| Service Date: 1997Knee replacement| Service Date: 1997Cataract extractionSurgery Medications aspirin(aspirin 81 mg oral delayed release tablet), 81 mg= 1 tab, PO, Daily, 3 refills atorvastatin(atorvastatin 10 mg oral tablet), See Instructions, 3 refills ergocalciferol(Vitamin D2), 1999 Int_Unit, PO, Daily fluorouracil topical(fluorouracil 5% topical cream), 1 appl, topical, qhs, 1 refills furosemide(furosemide 20 mg oral tablet), See Instructions isosorbide mononitrate(isosorbide mononitrate 60 mg oral tablet, extended release), 1 tab, PO, bid levothyroxine(levothyroxine 50 mcg (0.05 mg) oral tablet), 1 tab, PO, Daily metoprolol(Metoprolol Tartrate 50 mg oral tablet), 1 tab, PO, bid multivitamin, 1 tab, PO, Daily multivitamin(Vitamin B Complex) multivitamin with minerals(Macular Health Formula oral capsule), 2 cap, PO, Daily mupirocin topical(mupirocin 2% topical ointment), 1 appl, topical, bid, 2 refills nitroglycerin(nitroglycerin 0.4 mg sublingual spray), 1 spray, SL, q5min, PRN, 6 refills omega-3 polyunsaturated fatty acids(Fish Oil 500 mg oral capsule), 1000 mg= 2 cap potassium ACETATE, See Instructions sertraline(sertraline 100 mg oral tablet), 1 tab, PO, Daily triamcinolone(Kenalog-40 injectable suspension), 10 mg= 0.25 mL, intralesional, ONCE triamcinolone topical(triamcinolone 0.1% topical cream), 1 appl, topical, bid, 1 refills triamcinolone topical(triamcinolone 0.1% topical ointment), 1 appl, topical, bid, 3 refills Allergies NKA No Known Medication Allergies Social History Smoking Status Never smoked cigarettes Alcohol Frequency:1-2 times per year Exercise - Comments: walks up & down stairs. Tobacco Use:Never smoker Family History Breast cancer: Sister and Unknown. Glaucoma: Negative: Mother. Heart disease: Mother. Hypertension: Negative: Mother, Father, Sister, MGM and PGM. Melanoma in situ of skin: Mother, Sister and Unknown. Pacemaker rhythm: Sister. Respiratory disease: Negative: Father and PGF. Stroke: Negative: PGM. Sudden cardiac : Father. Type II diabetes mellitus: Negative: Mother, Father and MGM. Health Status Family Member(s) Electronic Signature on File Electronically Reviewed/Signed by: Mable Hardin MD Author Signature Dt/Tm:11/28/2023 11:52 PM Department of Dermatology CS Patient Care team information Care Team Personnel Name: MD Child Amy L Position: Physician - Family Med Member Role: Primary Care Provider Address: Address: [address] [place] [address] [place] Name: WALT Carter, She Middleton Position: Physician - Podiatry Member Role: Lifetime Relationship Address: Address: [address] [place] [address] Care Team Related Persons Name: SKYE VICTOR HUGO Address: home [address] [place], [id number]"
--- OUTSIDE RECORDS SUMMARY | 2023-11-30 08:51 | External Medical Summary | Continuity of Care Document ---
Author Name Unknown Organization [facility] [address] [facility] [address] [id number] Care Team Providers Care Cotton Sampler Name Role Phone Ivy Child Primary Care Physician [phone] Encounter [facility] [id number] Date(s): 09/29/23 - 09/29/23 [facility] [address] [facility] [address] [id number] Encounter Diagnosis Changing skin lesion(Discharge Diagnosis) - 09/29/23 Multiple actinic keratoses(Discharge Diagnosis) - 09/29/23 History of squamous cell carcinoma of skin(Discharge Diagnosis) - 09/29/23 Chronic stasis dermatitis(Discharge Diagnosis) - 09/29/23 Discharge Disposition: Home or Self Care Attending Physician: MD Wilfred Mable Allergies, Adverse Reactions, Alerts No Known Allergies Assessment and Plan Extracted from: Title:Office Visit Note Author:MD Wilfred, Janine ssandra Date:09/29/23 1.Changing skin lesion - shave biopsy for further evaluation today - further management pending pathology results - wound care instructions reviewed and provided Shave Biopsy Procedure Note A skin biopsy was performed after a time out (patient identified with full name and date, site located and confirmed with team members) and verbal informed consent was obtained.Risks (infection, scar, bleeding) and benefits (proper diagnosis and treatment) were reviewed.Alternative options were discussed if applicable.Time was given to address and answer all questions.Photograph was taken to document location. Location: 1. R forearm, HAK vs. SCC 2. Lknee, HAK vs. SCC Skin prep: isopropyl alcohol Anesthesia: 1% lidocaine with epinephrine Method: shave Hemostasis/Closure:hyfrecation Dressing: Vaseline and band-aid Verbal and written wound care instructions given.Patient was informed that further procedure(s) or treatment(s) may be needed pending pathology results.Patient is instructed to call should any problems or concerns arise.The patient agreed to call the office to obtain the test results if they have not been communicated to them within 2 weeks. -punch biopsy for further evaluation today - further management pending pathology results - wound care instructions reviewed and provided PunchBiopsy Procedure Note A skin biopsy was performed after a time out (patient identified with full name and date, site located and confirmed with team members) and verbal informed consent was obtained.Risks (infection, scar, bleeding) and benefits (proper diagnosis and treatment) were reviewed.Alternative options were discussed if applicable.Time was given to address and answer all questions.Photograph was taken to document location. Location:R distal lateral lower leg, rebiopsy for further evaluation, concerning for SCC Skin prep: isopropyl alcohol Anesthesia: 0.5% lidocaine with epinephrine Method:4 mm punch Hemostasis/Closure:hyfrecation, gel foam and pressure Dressing: Vaseline and bandage Verbal and written wound care instructions given.Patient was informed that further procedure(s) or treatment(s) may be needed pending pathology results.Patient is instructed to call should any problems or concerns arise.The patient agreed to call the office to obtain the test results if they have not been communicated to them within 2 weeks. 2.Multiple actinic keratoses - many/extensive actinic keratoses and hands and lower legs - discussed field therapy, patient notes difficulty tolerating chemo wraps - discussed Efudex + caplcipotriene cream BID x 10 days to hands as may be better able to tolerate, patient agrees, will start after return from travel. She prefers compounded cream from [facility] as does not feel comfortable mixingdue to low vision - Application instructions reviewed - patient declined cryotherapy treatment today prior to travel 3.Chronic stasis dermatitis - start triamcinolone 0.1% cream up to BID PRN for itch/rash 4.History of squamous cell carcinoma of skin - biopsies as above, continue to monitor f/u 6-8 weeks Immunizations Given and Recorded Vaccine Date Status [...] 1 tablet by mouth once daily, Pharmacy: [facility]229 Start Date: 07/01/23 Status: Ordered Fish Oil 500 mg oral capsule Start: 05/10/19 10:14:00 EDT, 2 cap Start Date: 05/10/19 Status: Ordered fluorouracil 5% topical cream Start: 12/07/21 9:26:00 EDT, 1 appl, topical, qhs, Disp# 40 g, Refills: 1, apply to legs, Pharmacy:[facility] [id number] Start Date: 12/07/21 Status: Ordered furosemide 20 mg oral tablet Start: 04/18/22 11:59:00 EDT, See Instructions, Disp# 45 tab, Refills: 3, TAKE 1 TABLET BY MOUTH PRN SWELLING Currently 2 x a week, Pharmacy: [facility] Start Date: 04/18/22 Status: Ordered isosorbide mononitrate 60 mg oral tablet, extended release Start: 09/18/23 14:31:00 EST, 1 tab, PO, bid, Disp# 180 tab, Refills: 1, Pharmacy: [facility] Start Date: 09/18/23 Status: Ordered levothyroxine 50 mcg (0.05 mg) oral tablet Start: 03/17/23 15:07:00 EDT, See Instructions, Disp# 90 tab, Refills: 1, Take 1 tablet by mouth once daily, Brand Medically Necessary, Pharmacy: [facility] Start Date: 03/17/23 Status: Ordered Macular Health Formula oral capsule Start: 07/16/19 15:25:00 EST, 2 cap, PO, Daily Start Date: 07/16/19 Status: Ordered Metoprolol Tartrate 50 mg oral tablet Start: 09/18/23 14:31:00 EST, 1 tab, PO, bid, Disp# 180 tab, Refills: 1, Pharmacy: [facility] Start Date: 09/18/23 Status: Ordered multivitamin Start: 05/10/19 10:13:00 EDT, 1 tab, PO, Daily Start Date: 05/10/19 Status: Ordered mupirocin 2% topical ointment Start: 05/13/19 14:48:00 EDT, 1 appl, topical, bid, Disp# 30 g, Refills: 2, apply to wounds on legs, Pharmacy: [facility] 2229 Start Date: 05/13/19 Status: Ordered nitroglycerin 0.4 mg sublingual spray Start: 02/14/23 11:57:00 EDT, 1 spray, SL, q5min, Disp# 4.9 g, Refills: 6, PRN: as needed for chestpain, Pharmacy: [facility] #[id number] Start Date: 02/14/23 Status: Ordered potassium ACETATE Start: 05/10/19 10:14:00 EDT, See Instructions Start Date: 05/10/19 Status: Ordered sertraline 100 mg oral tablet Start: 09/18/23 14:31:00 EST, 1 tab, PO, Daily, Disp# 90 tab, Refills: 1, Pharmacy: [facility] 2229 Start Date: 09/18/23 Status: Ordered triamcinolone 0.1% topical cream Start: 09/29/23 22:52:00 EST, 1 appl, topical, bid, Disp# 454 g, Refills: 1, Apply up to twice daily as needed for itch/rash, Pharmacy: [facility]229 Start Date: 09/29/23 Stop Date: 11/28/23 Status: Ordered triamcinolone 0.1% topical ointment Start: 01/31/20 8:35:00 EDT, 1 appl, topical, bid, Disp# 454 g, Refills: 3, apply to lower legs, Pharmacy: [facility] Start Date: 01/31/20 Status: Ordered Vitamin B Complex Start: 05/10/19 10:14:00 EDT Start Date: 05/10/19 Status: Ordered Vitamin D2 Start: 05/10/19 10:14:00 EDT, 2,000 Int_Unit =, PO, Daily Start Date: 05/10/19 Status: Ordered Mental Status 09/29/23 Barriers to Learning one year None evide nt Mandatory Health Literacy Documentation Yes Health Literacy Communication Barriers N ever Primary Language Greenlandic Problem List Condition Confirmation Course Effective Dates [...] Effective Dates Health Status Clinical Service Informant Changing skin lesion Discharge Diagnosis 09/29/23 Non-Specified History of squamous cell carcinoma of skin Discharge Diagnosis 09/29/23 Multiple actinic keratoses Discharge Diagnosis 09/29/23 Chronic stasis dermatitis Discharge Diagnosis 09/29/23 Non-Specified Procedures Procedure Date Related Diagnosis Body Site Status Punch biopsy of skin 09/29/23 Comp leted [...] Surgery 13 2004 Completed Open heart surgery 2001 Comple monica Carpal tunnel 2000 Completed Rotator cuff 2000 Completed Cholecystotomy 1999 Completed Knee replacement 1997 Complete d Knee replacement 1997 Complete d Cataract extraction Compl eted Surgery 14 Completed 11. right lower ritter 2. left ritter 2right lower ritter left frontal scalp 3a) right earlobe B) left ritter proximal C) left ritter lower 4[facility] Impression: ACR BI-RADS CATEGORY 2: BENIGN 1. [...] Dermatology Outpatient Note * MD Wilfred, Mable: PERFORM, MODIFY Event Display: Dermatology Outpt Note Authored Date: [id number] Chief Complaint follow up 1.Skin, right lower ritter, shave biopsy: -Abscess and cystic epithelial proliferation; 2.Skin, left ritter, shave biopsy: -Actinic keratosis, ulcer and granulation tissue History of Present Illness Patient is an 88 yo CF, presents for f/u s/p biopsies performed by Dr. Delatorre. Patient reports that L ritter looks much better, R ritter a little better but still very crusted and bleeding. At times has pain that travels up lower leg Extensive Hx of SCC,Efudex chemowrapscompleted spring 2021, patient notes that legs look much better now than they have in the past. Patient notes vision continues to get worse. Diagnosis 1.Skin, right lower ritter, shave biopsy: -Abscess and cystic epithelial proliferation (see Comment): Comment: The histological differential could include an infected cyst versus infected keratoacanthomatous type of squamous cell carcinoma. If the lesion persists, additional biopsy may be helpful. 2.Skin, left ritter, shave biopsy: -Actinic keratosis, ulcer and granulation tissue Patient is travelling in 1 week and then again in early January Physical Exam A&O x 3, well-appearing, well-groomed, pleasant Focused skin including face, eyelids, lips, ears, upper extremities, hands. lower legs remarkable for: innumerable pink scaly/hyperkeratotic macules scattered on cheeks, forehead, B/L arms, dorsal hands and lower legs plaque with overlying hemorrhagic crust at R distal lateral lower leg pink hyperkeratotic papule at L knee pink hyperkeratotic papule/cutaneous horn at R forearm Images 2023-09-29 14:08:26 2023-09-29 14:08:32 2023-09-29 14:08:42 2023-09-29 14:08:54 2023-09-29 [id number] 14:09:12 2023-09-29 14:28:00 Assessment/Plan 1.Changing skin lesion - shave biopsy for further evaluation today - further management pending pathology results - wound care instructions reviewed and provided Shave Biopsy Procedure Note A skin biopsy was performed after a time out (patient identified with full name and date, site located and confirmed with team members) and verbal informed consent was obtained.Risks (infection, scar, bleeding) and benefits (proper diagnosis and treatment) were reviewed.Alternativeoptions were discussed if applicable.Time was given to address and answer all questions.Photograph was taken to document location. Location: 1. R forearm, HAK vs. SCC 2. Lknee, HAK vs. SCC Skin prep: isopropyl alcohol Anesthesia: 1% lidocaine with epinephrine Method: shave Hemostasis/Closure:hyfrecation Dressing: Vaseline and band-aid Verbal and written wound care instructions given.Patient was informed that further procedure(s) or treatment(s) may be needed pending pathology results.Patient is instructed to call shouldany problems or concerns arise.The patient agreed to call the office to obtain the test resultsif they have not been communicated to them within 2 weeks. -punch biopsy for further evaluation today - further management pending pathology results - wound care instructions reviewed and provided PunchBiopsy Procedure Note A skin biopsy was performed after a time out (patient identified with full name and date, site located and confirmed with team members) and verbal informed consent was obtained.Risks (infection, scar, bleeding) and benefits (proper diagnosis and treatment) were reviewed.Alternative options were discussed if applicable.Time was given to address and answer all questions.Photograph was taken to document location. Location:R distal lateral lower leg, rebiopsy for further evaluation, concerning for SCC Skin prep: isopropyl alcohol Anesthesia: 0.5% lidocaine with epinephrine Method:4 mm punch Hemostasis/Closure:hyfrecation, gel foam and pressure Dressing: Vaseline and bandage Verbal and written wound care instructions given.Patient was informed that further procedure(s) or treatment(s) may be needed pending pathology results.Patient is instructed to call shouldany problems or concerns arise.The patient agreed to call the office to obtain the test resultsif they have not been communicated to them within 2 weeks. 2.Multiple actinic keratoses - many/extensive actinic keratoses and hands and lower legs - discussed field therapy, patient notes difficulty tolerating chemo wraps - discussed Efudex + caplcipotriene cream BID x 10 days to hands as may be better able to tolerate,patient agrees, will start after return from travel. She prefers compounded cream from [facility] as does not feel comfortable mixingdue to low vision - Application instructions reviewed - patient declined cryotherapy treatment today prior to travel 3.Chronic stasis dermatitis - start triamcinolone 0.1% cream up to BID PRN for itch/rash 4.History of squamous cell carcinoma of skin - biopsies as above, continue to monitor f/u 6-8 weeks Problem List/Past Medical History Ongoing Afib Annual [...] pain Acute upper respiratory infection Procedure/Surgical History Punch biopsy of skin (09/29/2023)Shave biopsy of skin (09/29/2023)Shave biopsy and cauterization of skin (07/31/2023)Shave biopsy and cauterization of skin (12/03/2022)Shave biopsy (07/18/2022)Shave biopsy and cauterization of skin (06/20/2022)Shave biopsy and cauterization of skin (06/20/2022)Shave biopsy and cauterization of skin (06/20/2022)Mohs micrographic surgery (01/15/2022)Shave biopsy (12/13/2021)Shave biopsy (12/13/2021)Electrodesiccation with curettage (10/18/2021)Shave biopsy and cauterization of skin (06/08/2021)Shave biopsy and cauterization of skin (10/27/2020)Shave biopsy and cauterization of skin (08/24/2020)Mammogram (06/30/2020)Shave biopsy and cauterization of skin (06/23/2020)Shave biopsy (04/21/2020)Shave biopsy and cauterisation of skin (02/29/2020)Diagnostic mammogram (02/09/2020)CXR - Chest X-ray (08/2019)Shave biopsy and cauterisation of skin (01/31/2020)Mammogram (06/25/2019)Excision biopsy (06/10/2019)Shave biopsy and cauterization of skin (05/13/2019)Surgery (2005)Surgery(2003)Surgery (2003)Open heart surgery (2001)Carpal tunnel (2000)Rotator cuff (2000)Cholecystotomy (1999)Knee replacement (1997)Knee replacement (1997)Cataract extractionSurgery Medications aspirin(aspirin 81 mg oral delayed [...] levothyroxine(levothyroxine 50 mcg (0.05 mg) oral tablet), See Instructions metoprolol(Metoprolol Tartrate 50 mg oral tablet), 1 [...] mg oral tablet), 1 tab, PO, Daily triamcinolone topical(triamcinolone 0.1% topical ointment), 1 appl, [...] Father and MGM. Health Status Family Member(s) Immunizations Vaccine Date Status influenza virus vaccine, inactivated 05/28/2023 Given influenza virus vaccine, inactivated 06/07/2022 Given influenza virus vaccine, inactivated 05/15/2020 Given Recommendations Health Maintenance Pending(in the next year) OverDue Falls Plan of Care due07/20/20and every 1year Due Adult COVID-19 Vaccination due09/29/23Unknown Frequency Adult Social Determinants of Health Screening due09/29/23Unknown Frequency Body Mass Index due09/29/23Unknown Frequency Pneumococcal Vaccine Older Adults due09/29/23One-time only Shingles Vaccine due09/29/23One-time only Due In Future Medicare Annual Wellness Visit not due until10/31/23and every 1year Adult Influenza Vaccine not due until02/08/24and every 1year Satisfied(in the past 1 year) Satisfied Adult Influenza Vaccine on05/28/23.Satisfied by LUIS Gregory Carolyn Lipid Screening on09/29/23.Satisfied by Contributor_system, [employer] Annual Wellness Visit on10/30/22.Satisfied by MD Child Amy L Electronic Signature on File Electronically Reviewed/Signed by: Mable Hardin MD Author Signature Dt/Tm:09/29/2023 10:49 PM Department of Dermatology Electronically Reviewed/Signed by: Mable Hardni MD Cosigner Signature Dt/Tm: 09/29/2023 10:51 PM Department of Dermatology CS Patient Care team information Care Team Personnel Name: MD Child Amy L Position: Physician - Family Med Member Role: Primary Care Provider Address: Address: [address] [facility] [address] [place] [address] [place] Name: WALT Carter Christina L Position: Physician - Podiatry Member Role: Lifetime Relationship Address: Address: [address] [facility] [address] [place] [address] Care Team Related Persons Name: VICTOR HUGO CHEUNG Address: home [address] [place], [phone]
--- OUTSIDE RECORDS SUMMARY | 2023-11-30 08:51 | External Medical Summary | Continuity of Care Document ---
Author Name Unknown Organization [facility] Address [address] [place], [place] [id number] Care Team Providers Care Research Program Intern Name Role Phone Ivy Child Kane Primary Care Physician [phone] [id number] Date(s): 09/29/23 - 09/29/23 [facility] [address] [facility] [address], [facility] [place], [phone] Encounter Diagnosis Hyperlipidemia, unspecified(Final) - Discharge Disposition: Home or Self Care Attending Physician: MAGNUS Bowie Sarah A Referring Physician: MAGNUS Bowie Sarah A Allergies, Adverse Reactions, Alerts No Known Allergies [...] 1 tablet by mouth once daily, Pharmacy: [id number] Start Date: 07/01/23 Status: Ordered Fish Oil 500 mg oral capsule Start: 05/10/19 10:14:00 EDT, 2 cap Start Date: 05/10/19 Status: Ordered fluorouracil 5% topical cream Start: 12/07/21 9:26:00 EDT, 1 appl, topical, qhs, Disp# 40 g, Refills: 1, apply to legs, Pharmacy:[facility] [id number] Start Date: 12/07/21 Status: Ordered furosemide 20 mg oral tablet Start: 04/18/22 11:59:00 EDT, See Instructions, Disp# 45 tab, Refills: 3, TAKE 1 TABLET BY MOUTH PRN SWELLING Currently 2 x a week, Pharmacy: [facility] 2229 Start Date: 04/18/22 Status: Ordered isosorbide mononitrate 60 mg oral tablet, extended release Start: 09/18/23 14:31:00 EST, 1 tab, PO, bid, Disp# 180 tab, Refills: 1, Pharmacy: [facility] [id number] Start Date: 09/18/23 Status: Ordered levothyroxine 50 mcg (0.05 mg) oral tablet Start: 03/17/23 15:07:00 EDT, See Instructions, Disp# 90 tab, Refills: 1, Take 1 tablet by mouth once daily, Brand Medically Necessary, Pharmacy: [facility] 2229 Start Date: 03/17/23 Status: Ordered Macular Health Formula oral capsule Start: 07/16/19 15:25:00 EST, 2 cap, PO, Daily Start Date: 07/16/19 Status: Ordered Metoprolol Tartrate 50 mg oral tablet Start: 09/18/23 14:31:00 EST, 1 tab, PO, bid, Disp# 180 tab, Refills: 1, Pharmacy: [facility] [id number] Start Date: 09/18/23 Status: Ordered multivitamin Start: 05/10/19 10:13:00 EDT, 1 tab, PO, Daily Start Date: 05/10/19 Status: Ordered mupirocin 2% topical ointment Start: 05/13/19 14:48:00 EDT, 1 appl, topical, bid, Disp# 30 g, Refills: 2, apply to wounds on legs, Pharmacy: [facility] Start Date: 05/13/19 Status: Ordered nitroglycerin 0.4 mg sublingual spray Start: 02/14/23 11:57:00 EDT, 1 spray, SL, q5min, Disp# 4.9 g, Refills: 6, PRN: as needed for chestpain, Pharmacy: [facility] #[id number] Start Date: 02/14/23 Status: Ordered potassium ACETATE Start: 05/10/19 10:14:00 EDT, See Instructions Start Date: 05/10/19 Status: Ordered sertraline 100 mg oral tablet Start: 09/18/23 14:31:00 EST, 1 tab, PO, Daily, Disp# 90 tab, Refills: 1, Pharmacy: [facility] Start Date: 09/18/23 Status: Ordered triamcinolone 0.1% topical cream Start: 09/29/23 22:52:00 EST, 1 appl, topical, bid, Disp# 454 g, Refills: 1, Apply up to twice daily as needed for itch/rash, Pharmacy: [facility] Start Date: 09/29/23 Stop Date: 11/28/23 Status: Ordered triamcinolone 0.1% topical ointment Start: 01/31/20 8:35:00 EDT, 1 appl, topical, bid, Disp# 454 g, Refills: 3, apply to lower legs, Pharmacy: [facility] Start Date: 01/31/20 Status: [...] ritter proximal C) left r[facility] lower [facility] Impression: ACR BI-RADS CATEGORY 2: BENIGN [...] 14c- section x 3 1961 1963 1964 Results Laboratory List Name Date Comprehensive Metabolic Panel (COMP META B PANEL) 09/29/23 Lipid Profile (LIPOPROTEINS) 09/29/23 Most recent to oldest [Reference Range]: 1 eGFR CKD-EPI [>60 mL/min/1.73 m2] 53 mL/ min/1.73 m2 1 *LOW* (09/29/23 2:45 PM) Non-HDL 93 mg/dL 2 (09/29/23 2:45 PM) Estimated CrCl 35.08 mL/min (09/29/23 3:27 PM) Anion Gap [5-14 mmol/L] 11 mmol/L (09/29/23 2:45 PM) Alb [3.5-5.0 g/dL] 4.5 g/dL (09/29/23 2:45 PM) Alk Phos [38-126 unit/L] 76 unit/L (09/29/23 2:45 PM) ALT [<35 unit/L] 18 unit/L (09/29/23 2:45 PM) AST [15-46 unit/L] 28 unit/L (09/29/23 2:45 PM) BUN [7-20 mg/dL] 27 mg/dL *HI* (09/29/23 2:45 PM) Ca [8.4-10.2 mg/dL] 10.8 mg/dL *HI* (09/29/23 2:45 PM) Chol/HDL 3 (09/29/23 2:45 PM) Chol [125-200 mg/dL] 133 mg/dL (09/29/23 2:45 PM) Cl- [96-107 mmol/L] 107 mmol/L (09/29/23 2:45 PM) HCO3 [22-30 mmol/L] 24 mmol/L (09/29/23 2:45 PM) Cret [0.60-1.00 mg/dL] 1.01 mg/dL *HI* (09/29/23 2:45 PM) Glu [74-106 mg/dL] 99 mg/dL (09/29/23 2:45 PM) HDL [>35 mg/dL] 40 mg/dL (09/29/23 2:45 PM) K [3.5-5.1 mmol/L] 4.3 mmol/L (09/29/23 2:45 PM) LDL Chol, Calculated [50-130 mg/dL] 53 m g/dL (09/29/23 2:45 PM) Na [137-145 mmol/L] 142 mmol/L (09/29/23 2:45 PM) T Bili [0.2-1.3 mg/dL] 0.7 mg/dL (09/29/23 2:45 PM) Prot [6.3-8.2 g/dL] 8.2 g/dL (09/29/23 2:45 PM) TG [<200 mg/dL] 200 mg/dL *HI* (09/29/23 2:45 PM) 1Result Comment: Testing Performed By: Dept of Pathology [facility], [address] [place] [id number] 2Result Comment: Testing Performed By: Dept of Pathology [facility], [address] [place] [id number] Social History Social History Type Response Smoking Status Never smoked cigaret lion Sex Female Patient Care team information Care Team Personnel Name: MD Child Amy L Position: Physician - Family Med Member Role: Primary Care Provider Address: Address: [address] [place] [address] 1 [place] [address] Name: WALT Carter Christina L Position: Physician - Podiatry Member Role: Lifetime Relationship Address: Address: [address] [facility] [address] [place] [address] Care Team Related Persons Name: VICTOR HUGO CHEUNG Address: home [address] [place], [phone]
--- OUTSIDE RECORDS SUMMARY | 2023-11-30 08:52 | External Medical Summary | Continuity of Care Document ---
Author Name Unknown Organization [facility] [address] [facility] [address] [id number] Care Team Providers Care Crystal Gazer Name Role Phone Ivy Child Primary Care Physician [phone] Encounter [facility] [id number] Date(s): 07/31/23 - 07/31/23 [facility] [address] [facility] [address] [phone] Encounter Diagnosis AK (actinic keratosis)(Discharge Diagnosis) - 07/31/23 History of skin cancer(Discharge Diagnosis) - 07/31/23 Discharge Disposition: Home or Self Care Attending Physician: MD Delatorre David L Allergies, Adverse Reactions, Alerts No Known Allergies Assessment and Plan Extracted from: Title:Clinical Document Author:MD Delatorre David L Date:07/31/23 OUTPATIENT NOTE Name: LARS GRANDE Patient Number:1 [id number] : 1935 Date of Service: 07/31/2023 _ Ms Grande recheck up. 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 She comes in for her bimonthly checkup. There is a little bit of bleeding from the right lower ritter lesion. Physical examination: Is a well-developed well-nourished white female type II skin. Alert and oriented x 3. Examination of face ears neck back chest hands and arms are extensive actinic damage some hyperkeratosis on the dorsal hands forearms and some on the face. Back and chest look pretty good. Examination of legs reveal hyperkeratotic crusted lesions largest being 2 cm in diameter on the right lower ritter and 2 and half centimeter in diameter on the proximal lateral left ritter. Impression: #1 extensive AK's and hypertrophic AK's. #2 possible SCC's on the shins. Plan: After discussing the procedure risks benefits and scarring, she gives verbal consent for shave removal. After 1% Xylocaine with epinephrine, lesion on the right right ritter and on the left ritter were both biopsied via shave technique and hemostasis was achieved with aluminum chloride and electrocautery. Pressure dressing was applied. Coban was placed. Did encourage her to keep these elevated. We will inform her of the pathology and any particular follow-up. Return for follow-up in 2 months. Immunizations Given and Recorded Vaccine Date Status [...] 1 tablet by mouth once daily, Pharmacy: [facility] Start Date: 07/01/23 Status: Ordered Fish Oil 500 mg oral capsule Start: 05/10/19 10:14:00 EDT, 2 cap Start Date: 05/10/19 Status: Ordered fluorouracil 5% topical cream Start: 12/07/21 9:26:00 EDT, 1 appl, topical, qhs, Disp# 40 g, Refills: 1, apply to legs, Pharmacy:[facility] [id number] Start Date: 12/07/21 Status: Ordered furosemide 20 mg oral tablet Start: 04/18/22 11:59:00 EDT, See Instructions, Disp# 45 tab, Refills: 3, TAKE 1 TABLET BY MOUTH PRN SWELLING Currently 2 x a week, Pharmacy: [facility] Start Date: 04/18/22 Status: Ordered isosorbide mononitrate 60 mg oral tablet, extended release Start: 03/13/23 8:42:00 EDT, See Instructions, Disp# 180 tab, Refills: 1, Take 1 tablet by mouth twice daily, Pharmacy: [facility] Start Date: 03/13/23 Status: Ordered levothyroxine 50 mcg (0.05 mg) oral tablet Start: 03/17/23 15:07:00 EDT, See Instructions, Disp# 90 tab, Refills: 1, Take 1 tablet by mouth once daily, Brand Medically Necessary, Pharmacy: [facility] 2229 Start Date: 03/17/23 Status: Ordered Macular Health Formula oral capsule Start: 07/16/19 15:25:00 EST, 2 cap, PO, Daily Start Date: 07/16/19 Status: Ordered Metoprolol Tartrate 50 mg oral tablet Start: 03/13/23 8:42:00 EDT, See Instructions, Disp# 180 tab, Refills: 1, Take 1 tablet by mouth twice daily, Pharmacy: [facility] 2229 Start Date: 03/13/23 Status: Ordered multivitamin Start: 05/10/19 10:13:00 EDT, 1 tab, PO, Daily Start Date: 05/10/19 Status: Ordered mupirocin 2% topical ointment Start: 05/13/19 14:48:00 EDT, 1 appl, topical, bid, Disp# 30 g, Refills: 2, apply to wounds on legs, Pharmacy: [facility] 2229 Start Date: 05/13/19 Status: Ordered nitroglycerin 0.4 mg sublingual spray Start: 02/14/23 11:57:00 EDT, 1 spray, SL, q5min, Disp# 4.9 g, Refills: 6, PRN: as needed for chestpain, Pharmacy: [facility] #[id number] Start Date: 02/14/23 Status: Ordered potassium ACETATE Start: 05/10/19 10:14:00 EDT, See Instructions Start Date: 05/10/19 Status: Ordered sertraline 100 mg oral tablet Start: 03/13/23 8:42:00 EDT, See Instructions, Disp# 90 tab, Refills: 1, Take 1 tablet by mouth once daily, Pharmacy: [facility] 2229 Start Date: 03/13/23 Status: Ordered triamcinolone 0.1% topical ointment Start: 01/31/20 8:35:00 EDT, 1 appl, topical, bid, Disp# 454 g, Refills: 3, apply to lower legs, Pharmacy: [facility]229 Start Date: 01/31/20 Status: Ordered Vitamin B Complex Start: 05/10/19 10:14:00 EDT Start Date: 05/10/19 Status: Ordered Vitamin D2 Start: 05/10/19 10:14:00 EDT, 2,000 Int_Unit =, PO, Daily Start Date: 05/10/19 Status: Ordered Mental Status 07/31/23 Barriers to Learning one year None evide nt Mandatory Health Literacy Documentation Yes Health Literacy Communication Barriers N ever Primary Language Burkinan Problem List Condition Confirmation Course Effective Dates [...] Dates Health Status Cl inical Service Informant AK (actinic keratosis) Discharge Diagnosis 07/31/23 History of skin cancer Discharge Diagnosis 07/31/23 Procedures Procedure Date Related Diagnosis Body Site Status Shave biopsy and cauterizati on of skin [...] 05/13/19 Completed Surgery 2006 Completed Surgery 12 2003 Completed Surgery 13 [...] ritter proximal C) left ritter lower [facility] Impression: ACR BI-RADS CATEGORY 2: BENIGN [...] Status Never smoked cigaret lion Sex Female Outpatient Note * MD Nandini, Gustavo Middleton: PERFORM Event Display: .Outpt Note Authored Date: [id number] OUTPATIENT NOTE Name: LARS GRANDE Patient Number:1 [id number] : 1935 Date of Service: 07/31/2023 _ Ms Grande recheck up. 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 She comes in for her bimonthly checkup. There is a little bit of bleeding fromthe right lower ritter lesion. Physical examination: Is a well-developed well-nourished white female type II skin. Alert and oriented x 3. Examination of face ears neck back chest hands and arms are extensive actinic damage some hyperkeratosis on the dorsal hands forearms and some on the face. Back and chest look pretty good. Examination of legs reveal hyperkeratotic crusted lesions largest being 2 cm in diameter on the right lower ritter and 2 and half centimeter in diameter on the proximal lateral left ritter. Impression: #1 extensive AK's and hypertrophic AK's. #2 possible SCC's on the shins. Plan: After discussing the procedure risks benefits and scarring, she gives verbal consent for shave removal. After 1% Xylocaine with epinephrine, lesion on the right right ritter and on the left ritter were both biopsied via shave technique and hemostasis was achieved with aluminum chloride and electrocautery. Pressure dressing was applied. Coban was placed. Did encourage her to keep these elevated.We will inform her of the pathology and any particular follow-up. Return for follow-up in 2 months. Electronic Signature on File Electronically Reviewed/Signed by: Gustavo Delatorre MD Author Signature Dt/Tm:07/31/2023 01:19 PM Department of Dermatology DLS Patient Care team information Care Team Personnel Name: MD Child Amy L Position: Physician - Family Med Member Role: Primary Care Provider Address: Address: [address] [facility] 1 [place] [address] [place] Name: WALT Carter Christina L Position: Physician - Podiatry Member Role: Lifetime Relationship Address: Address: [address] [facility] [address] [place] [address] [place] Care Team Related Persons Name: VICTOR HUGO CHEUNG Address: home [address] [place] [address] DR [place], [phone]
--- OUTSIDE RECORDS SUMMARY | 2023-11-30 08:52 | External Medical Summary | Continuity of Care Document ---
Author Name Unknown Organization [facility] [address] [facility] Tiffanie Address [address] [place], [place] [phone] Care Team Providers Care Pharmacy District Manager Name Role Phone Ivy Child Kane Primary Care Physician [phone] [id number] Date(s): 08/20/23 - 08/20/23 [facility] [address] [place] [address] [phone] Encounter Diagnosis HLD (hyperlipidemia)(Discharge Diagnosis) - 08/20/23 CAD in eyak artery(Discharge Diagnosis) - 08/20/23 Angina pectoris(Discharge Diagnosis) - 08/20/23 HTN (hypertension)(Discharge Diagnosis) - 08/20/23 Discharge Disposition: Home or Self Care Attending Physician: MAGNUS Bowie Sarah A Allergies, Adverse Reactions, Alerts No Known Allergies Assessment and Plan Extracted from: Title:Cardiology Office Visit Note Author:MAGNUS Bal rd, Sarah A Date:08/20/23 Impression: 1. Coronary artery disease status coronary artery bypass grafting x2 in [place] in 1999. 2. Normal LV size and function with an EF in the range of 65% without evidence of regional wall abnormalities.(spring 2020) 3. Hypertension. 4. Hyperlipidemia. 5. Chronic stable angina, remaining functional class 2. 6. History of breast cancer. 7. History of skin cancer. 8. Kidney stones. 9. Hospitalized for COVID pneumonia, spring 2020 - episode of afib during that hospitalization, no AC due to risk of bleeding Ms. Grande is doing well. She does have issues with balance and frequent falls. She did not have any focal deficits today and she denies any headaches. She is not having worsening angina. She continues isosorbide. Her blood pressure is well controlled. She is on asa and statin for history of CAD. She has not had a cmp or lipids zeb year and I will order them for her. She appears euvolemic and her weight is stable. She will return to the clinic in 6 months. Immunizations Given and Recorded Vaccine Date [...] 1 tablet by mouth once daily, Pharmacy: [facility] 2229 Start Date: 07/01/23 Status: Ordered Fish Oil 500 mg oral capsule Start: 05/10/19 10:14:00 EDT, 2 cap Start Date: 05/10/19 Status: Ordered fluorouracil 5% topical cream Start: 12/07/21 9:26:00 EDT, 1 appl, topical, qhs, Disp# 40 g, Refills: 1, apply to legs, Pharmacy:[facility] [id number] Start Date: 12/07/21 Status: Ordered furosemide 20 mg oral tablet Start: 04/18/22 11:59:00 EDT, See Instructions, Disp# 45 tab, Refills: 3, TAKE 1 TABLET BY MOUTH PRN SWELLING Currently 2 x a week, Pharmacy: [facility] 2229 Start Date: 04/18/22 Status: Ordered isosorbide mononitrate 60 mg oral tablet, extended release Start: 03/13/23 8:42:00 EDT, See Instructions, Disp# 180 tab, Refills: 1, Take 1 tablet by mouth twice daily, Pharmacy: [facility] 2229 Start Date: 03/13/23 Status: Ordered levothyroxine 50 mcg (0.05 mg) oral tablet Start: 03/17/23 15:07:00 EDT, See Instructions, Disp# 90 tab, Refills: 1, Take 1 tablet by mouth once daily, Brand Medically Necessary, Pharmacy: [facility] 2229 Start Date: 03/17/23 Status: Ordered Macular Health Formula oral capsule Start: 07/16/19 15:25:00 EST, 2 cap, PO, Daily Start Date: 07/16/19 Status: Ordered Metoprolol Tartrate 50 mg oral tablet Start: 03/13/23 8:42:00 EDT, See Instructions, Disp# 180 tab, Refills: 1, Take 1 tablet by mouth twice daily, Pharmacy: [facility] 2229 Start Date: 03/13/23 Status: Ordered multivitamin Start: 05/10/19 10:13:00 EDT, 1 tab, PO, Daily Start Date: 05/10/19 Status: Ordered mupirocin 2% topical ointment Start: 05/13/19 14:48:00 EDT, 1 appl, topical, bid, Disp# 30 g, Refills: 2, apply to wounds on legs, Pharmacy: [facility] 2229 Start Date: 05/13/19 Status: Ordered nitroglycerin 0.4 mg sublingual spray Start: 02/14/23 11:57:00 EDT, 1 spray, SL, q5min, Disp# 4.9 g, Refills: 6, PRN: as needed for chestpain, Pharmacy: [facility] #[id number] Start Date: 02/14/23 Status: Ordered potassium ACETATE Start: 05/10/19 10:14:00 EDT, See Instructions Start Date: 05/10/19 Status: Ordered sertraline 100 mg oral tablet Start: 03/13/23 8:42:00 EDT, See Instructions, Disp# 90 tab, Refills: 1, Take 1 tablet by mouth once daily, Pharmacy: [facility] 2229 Start Date: 03/13/23 Status: Ordered triamcinolone 0.1% topical ointment Start: 01/31/20 8:35:00 EDT, 1 appl, topical, bid, Disp# 454 g, Refills: 3, apply to lower legs, Pharmacy: [facility] 2229 Start Date: 01/31/20 Status: Ordered Vitamin B Complex Start: 05/10/19 10:14:00 EDT Start Date: 05/10/19 Status: Ordered Vitamin D2 Start: 05/10/19 10:14:00 EDT, 2,000 Int_Unit =, PO, Daily Start Date: 05/10/19 Status: Ordered Mental Status 08/20/23 Barriers to Learning one year None evide nt Mandatory Health Literacy Documentation Yes Health Literacy Communication Barriers N ever Primary Language Anguillan Problem List Condition Confirmation Course Effective Dates [...] Dates Health Status Cl inical Service Informant HLD (hyperlipidemia) Discharge Diagnosis 08/20/23 Non-Specified HTN (hypertension) Discharge Diagnosis 08/20/23 Non-Specified CAD in eyak artery Discharge Diagnosis 08/20/23 Non-Specified Angina pectoris Discharge Diagnosis 08/20/23 Non-Specified Procedures Procedure Date Related Diagnosis Body [...] monica Carpal tunnel 2000 Completed Rotator cuff 2001 Completed Cholecystotomy 1999 Completed Knee replacement 1997 Complete d Knee replacement 1997 Complete d Cataract extraction Compl eted Surgery 14 Completed 11. right lower ritter 2. left ritter 2right lower ritter left frontal scalp 3a) right earlobe B) left ritter proximal C) left ritter lower 4[facility] Impression: ACR BI-RADS CATEGORY 2: BENIGN [...] 12foot surgery 13lumpectomy 14c- section x 3 [id number] Vital Signs Most recent to oldest [Reference Range]: 1 Patient Weight 68.8 kg (08/20/23 12:46 PM) Temperature [36.5-37.9 DegC] 36.2 DegC *LOW* (08/20/23 12:46 PM) Heart Rate 70 bpm (08/20/23 12:46 PM) Respiratory Rate 16 br/min (08/20/23 12:46 PM) Blood Pressure 126/76mmHg (08/20/23 12:46 PM) Cuff Pulse Pressure 50 mmHg (08/20/23 12:46 PM) BP Location # 1 Left Arm, Manual (08/20/23 12:46 PM) Social History Social History Type Response Smoking Status Never smoked cigaret lion Sex Female Cardiology Outpatient Note * MAGNUS Bowie Sarah A: PERFORM Event Display: Cardiology Outpt Note Authored Date: [id number] Primary Care Provider MD Mateusz, Ivy Middleton Chief Complaint 6 month follow-up History of Present Illness Ms. Grande presents for evaluation of coronary artery disease status post coronary artery bypass grafting x2 in 1999 in [place] and preserved left ventricular systolic function with an EF in the range of 65% without evidence of regional wall motion abnormalities, spring 2020 [facility], hypertension, chronic stable angina remaining functional class 2, afib while hospitalized forCOVID infection 2020 not on anticoagulation,and hyperlipidemia. She had a mechanical fall a week ago -hit the back of her head, no headaches or symptoms following. She rarely takes nitro. She has found that as long as she doesn't go for walks or do higher level exertion around meal times she doesn't get any angina. She denies worsening sob. No edema. Review of Systems All other systems reviewed and negative except as discussed in the HPI Physical Exam Vitals & Measurements T:36.2C HR:70(Monitored) RR:16 BP:126/76 SpO2:97% WT:68.8kg WT:68.800kg(Dosing) Physical Examination General: Alert and oriented, No acute distress. Respiratory: Lungs are clear to auscultation, Respirations are non-labored. Cardiovascular:Irregular rhythm, No murmur, No edema Integumentary: Warm, Dry, [place] Neurologic: Alert, Oriented. Cognition and Speech: Speech clear and coherent. Psychiatric: Cooperative, Appropriate mood & affect. Assessment/Plan Impression: 1. Coronary artery disease status coronary artery bypass grafting x2 in [place] in 1999. 2. Normal LV size and function with an EF in the range of 65% without evidence of regional wall abnormalities.(spring 2020) 3. Hypertension. 4. Hyperlipidemia. 5. Chronic stable angina, remaining functional class 2. 6. History of breast cancer. 7. History of skin cancer. 8. Kidney stones. 9. Hospitalized for COVID pneumonia, spring 2020 - episode of afib during that hospitalization, no AC due to risk of bleeding Ms. Grande is doing well. She does have issues with balance and frequent falls. She did not have any focal deficits today andshe denies any headaches. She is not having worsening angina. She continues isosorbide. Her blood pressure is well controlled. She is on asa and statin for history of CAD. She has not had a cmp or lipids zeb year and I will order them for her. She appears euvolemic and her weight is stable. She will return to the clinic in 6 months. Problem List/Past Medical History Ongoing Afib Annual [...] pain Acute upper respiratory infection Procedure/Surgical History Shave biopsy and cauterization of skin (07/31/2023)Shave biopsy [...] skin (02/29/2020)Diagnostic mammogram (02/09/2020)CXR - Chest X-ray (02/09/2020)Shave biopsy and cauterisation of skin (01/31/2020)Mammogram (06/25/2019)Excision biopsy (06/10/2019)Shave biopsy and cauterization of skin (05/13/2019)Surgery (2005)Surgery (2003)Surgery (2003)Open heart surgery (2001)Carpal tunnel (2001)Rotator cuff (2001)Cholecystotomy (2000)Knee replacement (1997)Knee replacement (1997)Cataract extractionSurgery Medications aspirin(aspirin 81 mg oral delayed release tablet), 81 mg= 1 tab, PO, Daily, 3 refills atorvastatin(atorvastatin 10 mg oral tablet), See Instructions, 3 refills ergocalciferol(Vitamin D2), 1999 Int_Unit, PO, Daily fluorouracil topical(fluorouracil 5% topical cream), 1 appl, topical, qhs, 1 refills furosemide(furosemide 20 mg oral tablet), See Instructions isosorbide mononitrate(isosorbide mononitrate 60 mg oral tablet, extended release), See Instructions levothyroxine(levothyroxine 50 mcg (0.05 mg) oral tablet), See Instructions metoprolol(Metoprolol Tartrate 50 mg oral tablet), See Instructions multivitamin, 1 tab, PO, Daily multivitamin(Vitamin B [...] See Instructions sertraline(sertraline 100 mg oral tablet), See Instructions triamcinolone topical(triamcinolone 0.1% topical ointment), 1 appl, [...] Status Family Member(s) Electronic Signature on File CC: Ivy Child MD [address] [id number] Electronically Reviewed/Signed by: MAGNUS Ramos Author Signature Dt/Tm:2023 01:36 PM [facility] [place] [facility] Patient Care team information Care Team Personnel Name: MD Mateusz, Ivy Middleton Position: Physician - Family Med Member Role: Primary Care Provider Address: Address: [address] [address] [place] Name: WALT Carter Christina L Position: Physician - Podiatry Member Role: Lifetime Relationship Address: Address: [address] [address] [place] Care Team Related Persons Name: VICTOR HUGO CHEUNG Address: [address] [place], [phone]
[2023-11-30 09:09] LABS: Hematocrit (blood only) 40.2 % (37.0-47.0); Hemoglobin 13.6 g/dl (12.0-16.0); Mean Corpuscular Hemoglobin 31.2 pg (25.0-34.0); Mean Corpuscular Hgb Conc 33.8 g/dL (32.0-36.0); Mean Corpuscular Volume 92.2 fL (80.0-100.0); Mean Platelet Volume 9.9 fL (9.4-12.4); Platelet Count 100 K/uL (130-400); RDW Coefficient of Variation 13.8 % (11.5-14.5); RDW Standard Deviation 47.4 fL (36.4-46.3); Red Blood Count 4.36 M/uL (4.20-5.40); White Blood Count 13.01 K/ul (4.8-10.8)
[2023-11-30 09:26] LABS: Albumin Globulin Ratio 1.2 (0.9-2); Albumin Level 3.5 gm/dl (3.4-5.0); BUN Creatinine Ratio 27.5 (10-20); Bilirubin,Total 1.2 mg/dl (0.2-1.0); Calcium 10.2 mg/dl (8.6-10.3); Est GFR (African American) 56.5 ml/min; Est GFR (Non-African American) 48.7 ml/min; Potassium 3.7 mmol/L (3.5-5.1); Total Protein 6.5 gm/dl (6.0-8.3)
--- NOTE | 2023-11-30 09:27 | CT Scan Report ---
CT OF THE HEAD WITHOUT CONTRAST CLINICAL HISTORY: fall COMPARISON STUDY: Head CT July 17, 2020. CT DOSE: 625.8 mGy.cm TECHNIQUE: Helical axial images of the head were obtained without IV contrast. Automated exposure con trol was utilized for the study. A dose lowering technique was utilized adhering to the principles o f ALARA. FINDINGS: No acute intracranial hemorrhage, midline shift or mass effect is present. White matter hyp odensity suggests small vessel disease. Prominence of the extra-axial spaces is due to atrophy. The v entricular system is unremarkable. The basal cisterns are patent. No extra-axial collections are pres ent. There are no findings to suggest acute dural sinus thrombosis or acute territorial infarct. No s ignificant calvarial abnormalities are present. Visualized portions of the sinuses and mastoid air ce lls are clear. IMPRESSION: 1. No acute intracranial findings. 2. No calvarial fractures. ACT 112: Negative or not required by law. Electronically signed by: Diogenes Galan M.D. 11/30/2023 9:25 AM
[2023-11-30 09:30] LABS: Basophils # (auto) 0.03 K/uL (0.00-0.20); Basophils % (auto) 0.2 %; Immature Granulocytes # (auto) 0.07 K/uL (0.01-0.20); Immature Granulocytes % (auto) 0.5 %; Lymphocytes # (auto) 0.42 K/uL (1.20-3.40); Lymphocytes % (auto) 3.2 %; Monocytes # (auto) 0.72 K/uL (0.11-0.59); Monocytes % (auto) 5.5 %; Neutrophils # (auto) 11.77 K/uL (1.40-6.50); Neutrophils % (auto) 90.6 %; Toxic Vacuolation 1+
[2023-11-30 09:36] LABS: Troponin I High Sensitivity 633.6 pg/ml (0-14)
--- NOTE | 2023-11-30 09:37 | XRay Report ---
XR chest 1V portable CLINICAL HISTORY: Chest pain, nonspecific COMPARISON STUDY: Chest radiograph December 02, 2020. FINDINGS: Incidental note is made of surgical anchors within the right humeral head, median sternotom y wires and mediastinal surgical clips. Lung volumes are normal. There is no consolidation. Linear le ft basilar opacities favor atelectasis. There is no pneumothorax or pleural effusion. Cardiac size is stable. Mediastinal contours are normal. There is no evidence for pulmonary edema. IMPRESSION: No acute cardiopulmonary findings. ACT 112: Negative or not required by law. Electronically signed by: Diogenes Galan M.D. 11/30/2023 9:36 AM
[2023-11-30] MEDS: ASPIRIN CHEW 324 MG PO STA (09:54)
--- NOTE | 2023-11-30 10:07 | History & Physical Report ---
Date of Service November 30, 2023 Assessment & Plan (1) Fall: Plan: -Admit to [facility] PCU on tele -Currently stable and non-toxic appearing -Experienced a fall while getting out of bed early this am due to generalized weakness in the BL LE's -Did hit her head but denies LOC -CT of the head and CXR negative for acute findings -Patient is without focal neuro defects -Likely due to generalized weakness from baseline ambulatory dysfunction and dehydration from recent GI illness -Will obtain Xray of the BL hips/pelvis to rule out possible fracture -Lidocaine patch and hear for pain, will hold tylenol for now until LFT's plateau -Fall/aspiration precautions -PT/OT consults placed, will likely need inpatient rehab on discharge - PEGGY's and home full dose aspirin for DVT PPX - diet -Will obtain CK and lactate levels on repeat levels this am -AM CBC, CMP, mag, PT/INR (2) Elevated troponin: Plan: -Initial high sen trop elevated at 633 -Patient denies chest pain/discomfort or SOB -On further review of initial ECG on arrival and repeat at the time of admission, she has an incomplete RBBB and is without acute ST segment or T-wave changes -Likely due to demand from stress with recent GI illness, dehydration, and recent fall -Patient has known CAD and is S/P CABG x 3 in 2001, has at least one known occlusion of one of her previous bypasses -S/P 324 mg aspirin in the ED -Will repeat 2 hour high sen trop and obtain CK level at that time -Will obtain TTE -Continue to trend high sen trop q6h until it plateaus -Monitor on tele -Monitor potassium and mag levels (3) Generalized weakness: Plan: -Likely a combination of her recent GI illness and dehydration -No focal neuro defects on exam -Patient is dehydrated on exam -S/P 1L NSS in the ED -Will give another 1L LR on admission -Monitor intake/output q-shift -PT/OT consults ordered (4) Gastroenteritis: Plan: -Patient noted nausea/vomiting with progression to non-bloody diarrhea since 11/27 -Did have fish for dinner on 11/27 -Denies recent fevers -Likely due to viral infection -Will obtain stool studies with C. diff PCR -Continue supportive measures (5) Elevated LFTs: Plan: -AST and ALT mildly elevated this am -Patient denies abdominal discomfort -Noted to have a thrombocytopenia of 100 as well -Likely due to recent viral illness causing her GI symptoms -Will obtain a RUQ US to rule out structural causes -Monitor daily CBC, avoid Hepatotoxic agents (6) Thrombocytopenia: Plan: -See elevated LFT's (7) Hypothyroidism: Plan: -Continue levothyroxine (8) HTN (hypertension): Plan: -Stable -Continue metoprolol (9) CAD (coronary artery disease): Plan: -S/P CABG x 3 in [place] in 2001 -Continue aspirin and metoprolol -Holding Imdur today to avoid hypotension, can resume tomorrow if stable (10) Atrial fibrillation: Plan: -Normally on full dose aspirin, not on anticoagulation due to multiple previous falls -Continue aspirin (as long as platelets are stable), and metoprolol Plan The patient was discussed with Dr. Knutson at the time of the admission History of Present Illness Chief Complaint: Fall at home, nausea/vomiting/diarrhea Primary Care Provider: Ivy Child MD Edith is a 88 year old female with a PMH significant for CAD S/P CABG x3 2001 in [place], resultant occlusion in one of her bypass grafts, afib (on full dose daily aspirin) HTN, hyperlipidemia, and hypothyroidism who presented to the [facility] ED via EMS on 11/30/23 for ongoing nausea/vomiting/diarrhea causing generalized weakness and a fall this am. She was noted to be tachycardic on arrival at 95 but otherwise stable. Labs were significant for a leukocytosis of 13 with neutrophil predominance of 11, platelet count of 100, lymphocyte count of 0.42, total bili of 1.2, AST of 104, ALT of 119, and initial high sen trop of 633. CT of the head/brain wo con and Chest xray were read as negative for acute findings. ECG on arrival shows afib with RVR, new RBBB and possible ST segment elevation in the anterior leads. Prior to admission the patient was given 324 mg Aspirin and 1L NSS. At the time of the exam the patient was sitting in bed in no acute distress with her Daughter/POA sitting bedside, history was obtained from both. Patient lives with her daughter and her daughter's . Has been having slowly progressing ambulatory dysfunction over the past 6 months with multiple falls. Has BL macular degeneration and states she often gets lightheaded/dizzy with standing if she does not take her time. They went out to dinner on 11/28/23, the patient had fish. The following day she had multiple episodes of non-bloody nausea/vomiting, this progressed to non-bloody diarrhea over the past 24 hours. Patient has not been able to take any of her home meds over the past 24 hours. Patient tried to get out of bed overnight to go to the bathroom but feel due to generalized weakness in both lower extremities. Did hit her head and landed on her right side but did not lose consciousness. Was able to drag herself to one of the rios and prop herself up. Family found her sitting on the ground this am around 0730 and called EMS. Patient is generally sore throughout her body but denies focal pain at this time. Denies focal neuro defects. Denies recent fever, chills, chest pain, SOB, cough, abd pain, dysuria hematuria, melena, or LE swelling. If needed, patient and family are in agreement with inpatient rehab on discharge. She is a DNR/DNI and her daughter is her POA. Patient's daughter has to travel out of town for work starting 11/30 and will not be back in town until 12/04. Please refer to Dr. Knutson attestation for any changes to the treatment plan Allergies Allergy/AdvReac Type Severity Reaction Status Date / Time latex AdvReac Rash Verified 11/30/23 16:43 Home Medications Medication Instructions Recorded Confirmed Type atorvastatin 10 mg tablet (Lipitor) 10 mg PO DAILY 07/17/20 11/30/23 History isosorbide mononitrate 60 mg 60 mg PO BID 07/17/20 11/30/23 History tablet,extended release 24 hr levothyroxine 50 mcg tablet 50 mcg PO DAILY 07/17/20 11/30/23 History metoprolol tartrate 50 mg tablet 50 mg PO BID 07/17/20 11/30/23 History (Lopressor) sertraline 100 mg tablet (Zoloft) 100 mg PO DAILY 07/17/20 11/30/23 History triamcinolone acetonide 0.1 % 1 applic topical BID 07/17/20 11/30/23 History topical ointment ibuprofen 200 mg tablet 400 mg PO Q6H PRN fever/pain 12/02/20 11/30/23 History aspirin 325 mg tablet 325 mg PO DAILY 03/15/21 11/30/23 History multivitamin with minerals 1 tab PO DAILY 03/15/21 11/30/23 History (Hair,Skin and Nails tablet) potassium gluconate 595 mg (99 mg) 595 mg PO DAILY 03/15/21 11/30/23 History tablet vitamin B complex 1 cap PO DAILY 03/15/21 11/30/23 History cholecalciferol (vitamin D3) 25 1,000 unit PO DAILY #30 caps 06/07/21 11/30/23 Rx mcg (1,000 unit) capsule vitamins A,C,F-vixc-ahkycl 2,148 2 tab PO DAILY 11/30/23 11/30/23 History mcg-113 mg-45 mg-17.4 mg tablet (PreserVision AREDS) Past Med/Surg History Medical History (Updated 11/30/23 @ 11:13 by EDOUARD FloresC) Hyperparathyroidism History of breast cancer Nephrolithiasis Hypercalcemia COVID-19 Weakness Atrial fibrillation with rapid ventricular response Hypothyroidism HTN (hypertension) CAD (coronary artery disease) Pyelonephritis Surgical History (Updated 03/15/21 @ 15:01 by Asim Prado MD) S/P CABG x 3 Status post bilateral knee replacements H/O rotator cuff surgery Previous section S/P cholecystectomy Family History (Updated 03/15/21 @ 14:16 by Gloria Torres) Father Hypertension Myocardial infarction Mother Heart disease Other No significant family history Social History Smoking Status: Never smoker Hx Alcohol Use: No Hx Substance Use: No Preferred Language: Northern Irish Communication Ability: Effective Mechanical Maintenance Required: No Beliefs That Will Affect Care: Hindu Hindu Beliefs: CATHOLIC Current Living Situation: Family Feels Safe at Home: Yes Assistive Devices: Cane, Glasses and Walker Physical Exam Physical Exam: Physical Exam: General: In no acute distress, stated age, chronically ill appearing but non- toxic HEENT: Normocephalic, atraumatic, no scleral icterus, pupils around round, symmetrical, and reactive to light, Dry mucus membranes, trachea midline, no thyromegaly Chest/Pulm: No respiratory distress, symmetrical chest expansion, clear breath sounds throughout Cardiac: irregular rate and rhythm, no murmurs noted Abdomen: Negative for ascites and bruising, normoactive bowel sounds, soft, non-tender to palpation throughout Musculoskeletal: Patient without acute trauma on inspection and palpation of the face, scalp, neck, thoracic/lumbar spine, able to move BL upper and lower extremities without limitation but with mild pain in the right hip, no acute trauma on inspection of the BL LE's Extremities: Radial, dorsalis pedis, and posterior tibial pulses are intact and symmetrical, no edema noted in the BL LE's Skin: Non-bleeding skin tears noted on the left forearm and BL shins Neuro: Alert and oriented to person, place, month, no focal defects, CN II- XII tested and intact, negative BL Cerebellar and pronator drift BL, no tremors noted Psych: No acute distress, calm and cooperative during the exam Results & Data Results & Data Vital Signs (Past 12 Hours) Vital Signs Temp Pulse Resp BP Pulse Ox O2 Del Method 11/30/23 09:00 93 H 23 96 Room Air 11/30/23 08:48 94 H 11/30/23 08:38 36.8 C 95 H 18 126/96 98 Room Air Laboratory Results Abnormal lab results 11/30/23 Range/Units 08:58 WBC 13.01 H (4.8-10.8) K/ul RDW Std Deviation 47.4 H (36.4-46.3) fL Plt Count 100 L (130-400) K/uL Neut # (Auto) 11.77 H (1.40-6.50) K/uL Lymph # (Auto) 0.42 L (1.20-3.40) K/uL [place] # (Auto) 0.72 H (0.11-0.59) K/uL BUN 28 H (6-23) mg/dl BUN/Creatinine Ratio 27.5 H (10-20) Glucose 111 H (70-99(Fasting)) mg/dl Total Bilirubin 1.2 H (0.2-1.0) mg/dl AST 104 H (13-39) U/L ALT 119 H (7-52) U/L Troponin I High Sens 633.6 H* (0-14) pg/ml Diagnostic Findings Chest X-Ray 11/30/23 08:43 XR chest 1V portable CLINICAL HISTORY: Chest pain, nonspecific COMPARISON STUDY: Chest radiograph December 02, 2020. FINDINGS: Incidental note is made of surgical anchors within the right humeral head, median sternotomy wires and mediastinal surgical clips. Lung volumes are normal. There is no consolidation. Linear left basilar opacities favor atelectasis. There is no pneumothorax or pleural effusion. Cardiac size is stable. Mediastinal contours are normal. There is no evidence for pulmonary edema. IMPRESSION: No acute cardiopulmonary findings. ACT 112: Negative or not required by law. Electronically signed by: Diogenes Galan M.D. 11/30/2023 9:[address] 11/30/23 08:43 CT OF THE HEAD WITHOUT CONTRAST CLINICAL HISTORY: fall COMPARISON STUDY: Head CT July 17, 2020. CT DOSE: 625.8 mGy.cm TECHNIQUE: Helical axial images of the head were obtained without IV contrast. Automated exposure control was utilized for the study. A dose lowering technique was utilized adhering to the principles of ALARA. FINDINGS: No acute intracranial hemorrhage, midline shift or mass effect is present. White matter hypodensity suggests small vessel disease. Prominence of the extra-axial spaces is due to atrophy. The ventricular system is unremarkable. The basal cisterns are patent. No extra-axial collections are present. There are no findings to suggest acute dural sinus thrombosis or acute territorial infarct. No significant calvarial abnormalities are present. Visualized portions of the sinuses and mastoid air cells are clear. IMPRESSION: 1. No acute intracranial findings. 2. No calvarial fractures. ACT 112: Negative or not required by law. Electronically signed by: Diogenes Galan M.D. 11/30/2023 9:25 AM ECG Additional Comments: Atrial fibrillation Incomplete right bundle branch block Septal infarct (cited on or before 30-NOV-2023) ST & T wave abnormality, consider anterior ischemia Abnormal ECG When compared with ECG of 30-NOV-2023 08:47, (unconfirmed) No significant change was found Code Status & VTE Plan Code Status DNR/DNI VTE Prophylaxis Plan VTE Prophylaxis will be ordered: Yes Supervising Physician Co-Signing Physician Notes I personally saw and examined the patient. I verified all camacho points and agree with Golden Bermudez PA-C with the following exceptions and/or additions: 88 year old female presents to the ER with a fall with ambulatory dysfunction over 6 month period but worse in the last 24 hours with a diarrheal illness and nausea following a fish dinner. No new one sided weakness, change in sensation, change in speech, hearing or vision. O/E A&Ox3, HS increased rate, irregular rhythm, no murmurs, Chest CTAB, Abdo mild suprapubic pain without guarding or rebound tenderness, no pitting edema, right leg wrapped with chemotherapy cream which is due to come off on , no cellulitis above or below wrapping but this was not removed. A/P Fall - suspect due to generalized weakness from diarrheal illness, multifactorial longstanding issues with her right leg wrapped and b/l macular degeneration Diarrhea - stool PCR, c. diff PCR pending ?related to fish dinner Elevated troponin - low suspicion of ACS given lack of chest pain or shortness of breath, TTE without wall motion abnormalities, will defer to providers tomorrow to repeat echo for aortic valve pathology as recommended especially with her longstanding lightheadedness. Total CK negative UTI - suprapubic pain on exam, IV ceftriaxone, follow up urine culture Permanent atrial fibrillation - previously on Xarelto back in 2020 however appears to now be on aspirin alone, continue metoprolol for rate control CAD - ok to resume ISMN tonight with current BP, monitor for orthostatic symptoms Elevated LFTs - no RUQ pain on exam, monitor with AM labs PG Care Time/CCT Total # of Minutes Spent Total Time Spent with Patient: Total time spent is greater than 50% in coordination of care (as documented) at patient's floor/unit and/or counseling patient: Coding [place] [address] INT INP/OBS CARE 3/75MIN Patient Type Established Medical Decision Making High Complexity Diagnoses Fall W19.XXXA Encounter type: initial encounter Elevated troponin R79.89 Generalized weakness R53.1 Gastroenteritis K52.9 Elevated LFTs R79.89 Thrombocytopenia D69.6 Hypothyroidism, unspecified type E03.9 Hypothyroidism type: unspecified Hypertension, unspecified type I10 Hypertension type: unspecified Coronary artery disease of [place] artery of [place] heart with stable angina pectoris I25.118 Associated angina: with stable angina Coronary Disease-Associated Artery/Lesion type: [place] artery [place] vs. transplanted heart: [place] heart Atrial fibrillation I48.91 (1) Fall Encounter type: initial encounter Qualified Code(s): W19.XXXA - Unspecified fall, initial encounter (7) Hypothyroidism Hypothyroidism type: unspecified Qualified Code(s): E03.9 - Hypothyroidism, unspecified (8) HTN (hypertension) Hypertension type: unspecified Qualified Code(s): I10 - Essential (primary) hypertension (9) CAD (coronary artery disease) Associated angina: with stable angina Coronary Disease-Associated Artery/Lesion type: [place] artery [place] vs. transplanted heart: [place] heart Qualified Code(s): I25.118 - Atherosclerotic heart disease of [place] coronary artery with other forms of angina pectoris
[2023-11-30] MEDS: LACTATED RINGER'S 1,000 ML IV ONE (10:36)
[2023-11-30] MEDS: METOPROLOL TARTRATE 50 MG TAB PO STA (10:59)
[2023-11-30 12:20] LABS: Magnesium 1.9 mg/dl (1.7-2.4)
--- NOTE | 2023-11-30 12:28 | XRay Report ---
XR hips KELLY 1v w pelvis CLINICAL HISTORY: fall, right hip pain COMPARISON: Pelvis and left hip radiographs July 28, 2020. FINDINGS: Sacroiliac joints and symphysis pubis are intact. There is no acute fracture within the pe lvis or hips. There is mild joint space narrowing and moderate osteophytosis of the hips. IMPRESSION: No fractures within the pelvis or hips. ACT 112: Negative or not required by law. Electronically signed by: Diogenes Galan M.D. 11/30/2023 12:26 PM
[2023-11-30] MEDS: SERTRALINE HCL 100 MG TABLET PO STA (13:26)
[2023-11-30] MEDS: LIDOCAINE 5% 1 PATCH TD STA (13:26)
--- NOTE | 2023-11-30 13:39 | XCELERA ---
[id number] \\[id number]
[2023-11-30 17:08] LABS: Appearance Urine Cloudy (Clear); Bacteria Urine Automated 4+ (None Seen); Bilirubin Urine Negative (Negative); Blood Urine 3+ (Negative); Color Urine Dark Yellow; Glucose Urine UA Negative (Negative); Ketones Urine Negative (Negative); Leukocyte Esterase Urine 1+ (Negative); Nitrite Urine Positive (Negative); Protein Urine 2+ (Negative); Specific Gravity Urine 1.022 (1.000-1.030); Urobilinogen Urine Negative (Negative); WBC Urine Automated >50 /hpf (0-5); pH Urine 5.5 (4.5-7.5)
[2023-11-30] MEDS: cefTRIAXone SODIUM 2,000 MG in DEXTROSE 5 % MINI-B 50 ML IV SCH (20:26)
[2023-11-30] MEDS: ISOSORBIDE MONO EXTENDED REL 60 MG TABCR PO SCH (20:28)
[2023-11-30] MEDS: METOPROLOL TARTRATE 50 MG TAB PO SCH (20:28)
--- NOTE | 2023-11-30 20:47 | Ultrasound Report ---
US liver CLINICAL HISTORY: elevated liver enzymes COMPARISON STUDY: CT of the abdomen and pelvis December 19, 2013. FINDINGS: Moderate biliary ductal dilatation status post cholecystectomy is similar to CT of December 19, 2013. The common bile duct measures approximately 1.3 cm in caliber. No common bile duct calculi are identified. Pancreas is unremarkable by sonography although the tail is slightly obscured. There are no hepatic lesions. There is no right hydronephrosis. Several small right renal calculi measure up to 5 mm. Focal prominence of the cortex of the midpole of the right kidney is noted. This measures 2.7 cm and contains a 1.7 cm cyst. This probably reflects renal parenchyma with adjacent scarring. No def inite solid renal mass is present. IMPRESSION: 1. Moderate dilatation of the common bile duct, similar to CT of December 19, 2013. This is likely related to previous cholecystectomy. 2. Right nephrolithiasis. No right hydronephrosis. 3. Focal prominence of the cortex of the midpole of the right kidney. This likely reflects renal pare nchymal with an adjacent cyst and scarring. A solid renal lesion is considered less likely. This is l ow suspicion however, nonemergent renal protocol CT could be obtained. ACT 112: Negative or not required by law. Electronically signed by: Diogenes Galan M.D. 11/30/2023 8:44 PM
--- NOTE | 2023-12-01 05:59 | Electrocardiogram Report ---
Test Reason : Blood Pressure : / mmHG Vent. Rate : 102 BPM Atrial Rate : 000 BPM P-R Int : 000 ms QRS Dur : 108 ms QT Int : 394 ms P-R-T Axes : 000 -09 033 degrees QTc Int : 513 ms Atrial fibrillation with rapid ventricular response Incomplete right bundle branch block Septal infarct , age undetermined Abnormal ECG When compared with ECG of 03-DEC-2020 05:06, Incomplete right bundle branch block is now Present Septal infarct is now Present Confirmed by Bo Bhakta ([id number]) on 12/01/2023 5:58:38 AM Referred By: Confirmed By:Bo Bhakta
--- NOTE | 2023-12-01 06:03 | Electrocardiogram Report ---
Test Reason : Blood Pressure : / mmHG Vent. Rate : 087 BPM Atrial Rate : 000 BPM P-R Int : 000 ms QRS Dur : 116 ms QT Int : 390 ms P-R-T Axes : 000 -05 -03 degrees QTc Int : 469 ms Atrial fibrillation Incomplete right bundle branch block Septal infarct (cited on or before 30-NOV-2023) Abnormal ECG When compared with ECG of 30-NOV-2023 08:47, (unconfirmed) No significant change was found Confirmed by Bo Bhakta ([id number]) on 12/01/2023 6:02:35 AM Referred By: Ivy Child Confirmed By:Bo Bhakta
[2023-12-01] MEDS: LEVOTHYROXINE SODIUM 50 MCG TABLET PO SCH (06:05)
--- NOTE | 2023-12-01 07:58 | Hospitalist Progress Note ---
Date of Service December 01, 2023 Assessment & Plan (1) Elevated troponin: Plan: Consistent with demand ischemia (type 2 nstemi) from medical illness including recent gastroenteritis, UTI, dehydration, fell and down on the floor for several hours. -Initial high sen trop elevated at 633 --> 400, has CAD, CABG x 3 in 2001, has at least one known occlusion of one of her previous bypasses -Patient denies chest pain/discomfort or SOB -EKG: incomplete RBBB and is without acute ST segment or T-wave changes -unlikely ACS -TTE with nl LVEF, nl RV, at least moderate MR, mod pulmonary HTN, at least moderate - echo inadequate for evaluation, report recommended dedicated aortic valve evaluation -discussed with Dr. Diggs who reviewed the echo he thought this was more mild to moderate , and that no further imaging required at this time, can be followed with serial echo in the future (2) Fall: Plan: -Experienced a fall while getting out of bed early this am due to generalized weakness in the BL LE's -Did hit her head but denies LOC - head CT and CXR negative -Likely due to generalized weakness from baseline ambulatory dysfunction and dehydration from recent GI illness, UA also abnormal -Xray of the BL hips/pelvis neg for fracture -Lidocaine patch -Fall/aspiration precautions -PT/OT consults (3) Gastroenteritis: Plan: -Patient noted nausea/vomiting with progression to non-bloody diarrhea since 11/27 -Did have fish for dinner on 11/27 -Denies recent fevers -Likely due to viral infection -C. diff PCR resulted negative -No further stools recorded since last night had brown formed bowel movement, diarrhea seems resolved (4) Elevated LFTs: Plan: -AST and ALT mildly elevated -Noted to have a thrombocytopenia of 100 as well -Likely due to recent viral illness causing her GI symptoms -RUQ US unremarkable except: Focal prominence of the cortex of the midpole of the right kidney. This likely reflects renal parenchymal with an adjacent cyst and scarring. A solid renal lesion is considered less likely. This is low suspicion however, nonemergent renal protocol CT could be obtained -AST and ALT improved, bilirubin normal, INR normal, platelet count improved, likely related to viral infection or mild ischemic liver injury. Thrombocytopenia could be related to viral gastroenteritis, monitor CBC for resolution (5) Thrombocytopenia: Plan: -See elevated LFT's (6) Hypothyroidism: Plan: -Continue levothyroxine (7) HTN (hypertension): Plan: -Stable -Continue metoprolol (8) CAD (coronary artery disease): Plan: -S/P CABG x 3 in [place] in 2001 -cardiology note 2020 states chronic stable angina -Continue aspirin and metoprolol -Resume Imdur, resume atorvastatin (9) Atrial fibrillation: Plan: Paroxysmal Afib -Normally on full dose aspirin, not on anticoagulation due to multiple previous falls -Continue aspirin (as long as platelets are stable), and metoprolol Plan UTI symptomatic of increased incontinence, suprapubic pain, culture pending - continue ceftriaxone mild renal insufficiency on CKD-3 -Creatinine improved to baseline of 0.8 History of breast cancer States that she lives with her daughter, PT and OT evaluation both recommended rehab stay as she is significantly below her functional baseline Admission and Anticipated Discharge Date Admission Date: November 30, 2023 Subjective Pleasant and oriented, has had increased urinary incontinence and SP pain Has chronic raya LE wounds, follows frequently with air pumper for this, RLE in compression wrap - air pumper told her to take this off . No increase in pain or drainage. Physical Exam 2 Physical Exam: PHYSICAL EXAMINATION Last 24h vital signs reviewed, see documentation in flowsheet General: comfortable appearing, no distress HEENT: Normocephalic, atraumatic, pupils round and equal, sclerae anicteric, no conjunctival injection, moist mucus membranes Lungs: Normal respiratory effort. Clear to auscultation bilaterally. No RRW Heart: Regular rate and rhythm, no murmurs. No JVD Abdomen: Soft, nontender except suprapubic tenderness present, nondistended. Bowel sounds present. Extremities: Warm, dry, well-perfused. No extremity edema. Several wounds with dark eschars on left lower extremity below the knee, a few on the right lower extremity near the knee, these are dry with no surrounding cellulitis. Right lower extremity in compression wrap which I removed. She has multiple shallow wounds largest of which is around 2 cm few of them with some yellowish drainage at the base no surrounding cellulitis. She has chronic dermatitis of both lower extremities appears consistent with sun damage. She has had a skin graft right ankle which is well-healed. Neuro: Alert and oriented x 4, face symmetric, moves 4 extremities well Psych: Normal affect and behavior Results & Data Results & Data Vital Signs (Past 12 Hours) Vital Signs Temp Pulse Resp BP Pulse Ox O2 Del Method 12/01/23 07:23 36.5 C 84 16 143/82 H 95 Room Air 12/01/23 03:26 36.8 C 81 17 127/74 94 Room Air 11/30/23 23:36 Room Air 11/30/23 23:28 36.6 C 84 17 108/61 95 Room Air Laboratory Results 12/01/23 08:18 12/01/23 08:18 PG Care Time/CCT Total # of Minutes Spent Total Time Spent with Patient: Total time spent is greater than 50% in coordination of care (as documented) at patient's floor/unit and/or counseling patient: Coding Level of Care Code 63430 SUB INP/OBS CARE 2/35MIN Diagnoses Elevated troponin R79.89 Fall W19.XXXA Encounter type: initial encounter Gastroenteritis K52.9 Elevated LFTs R79.89 Thrombocytopenia D69.6 Hypothyroidism, unspecified type E03.9 Hypothyroidism type: unspecified Hypertension, unspecified type I10 Hypertension type: unspecified Coronary artery disease of [place] artery of [place] heart with stable angina pectoris I25.118 Associated angina: with stable angina Coronary Disease-Associated Artery/Lesion type: [place] artery [place] vs. transplanted heart: [place] heart Atrial fibrillation I48.91 (2) Fall Encounter type: initial encounter Qualified Code(s): W19.XXXA - Unspecified fall, initial encounter (6) Hypothyroidism Hypothyroidism type: unspecified Qualified Code(s): E03.9 - Hypothyroidism, unspecified (7) HTN (hypertension) Hypertension type: unspecified Qualified Code(s): I10 - Essential (primary) hypertension (8) CAD (coronary artery disease) Associated angina: with stable angina Coronary Disease-Associated Artery/Lesion type: [place] artery [place] vs. transplanted heart: [place] heart Qualified Code(s): I25.118 - Atherosclerotic heart disease of [place] coronary artery with other forms of angina pectoris
[2023-12-01 08:43] LABS: Basophils # (auto) 0.02 K/uL (0.00-0.20); Basophils % (auto) 0.2 %; Eosinophils # (auto) 0.03 K/uL (0.00-0.50); Eosinophils % (auto) 0.3 %; Hematocrit (blood only) 35.5 % (37.0-47.0); Hemoglobin 11.8 g/dl (12.0-16.0); Immature Granulocytes # (auto) 0.06 K/uL (0.01-0.20); Immature Granulocytes % (auto) 0.6 %; Lymphocytes % (auto) 7.2 %; Mean Corpuscular Hemoglobin 30.8 pg (25.0-34.0); Mean Corpuscular Hgb Conc 33.2 g/dL (32.0-36.0); Mean Corpuscular Volume 92.7 fL (80.0-100.0); Monocytes % (auto) 6.2 %; Neutrophils # (auto) 8.29 K/uL (1.40-6.50); Neutrophils % (auto) 85.5 %; Platelet Count 109 K/uL (130-400); RDW Coefficient of Variation 13.9 % (11.5-14.5); RDW Standard Deviation 47.3 fL (36.4-46.3); Red Blood Count 3.83 M/uL (4.20-5.40)
[2023-12-01 09:01] LABS: INR 1.1 (0.9-1.1); Prothrombin Time 12.4 Seconds (9.0-12.0); Troponin I High Sensitivity 210.2 pg/ml (0-14)
[2023-12-01 09:27] LABS: Albumin Globulin Ratio 1.1 (0.9-2); Albumin Level 3.2 gm/dl (3.4-5.0); BUN Creatinine Ratio 29.1 (10-20); Bilirubin,Total 1.2 mg/dl (0.2-1.0); Creatinine Clr Calc Pharmacy 46.5 ml/min; Est GFR (African American) 76.9 ml/min; Est GFR (Non-African American) 66.4 ml/min; Globulin 2.9 gm/dl (2.5-4.0); Magnesium 1.9 mg/dl (1.7-2.4); Potassium 3.8 mmol/L (3.5-5.1); Total Protein 6.1 gm/dl (6.0-8.3)
[2023-12-01] MEDS: ASPIRIN 325 MG ECTAB PO SCH (10:11)
[2023-12-01] MEDS: SERTRALINE HCL 100 MG TABLET PO SCH (10:11)
[2023-12-02 04:56] LABS: Basophils # (auto) 0.02 K/uL (0.00-0.20); Basophils % (auto) 0.3 %; Eosinophils # (auto) 0.14 K/uL (0.00-0.50); Eosinophils % (auto) 1.8 %; Hematocrit (blood only) 32.5 % (37.0-47.0); Hemoglobin 10.9 g/dl (12.0-16.0); Immature Granulocytes # (auto) 0.07 K/uL (0.01-0.20); Immature Granulocytes % (auto) 0.9 %; Lymphocytes # (auto) 0.96 K/uL (1.20-3.40); Lymphocytes % (auto) 12.7 %; Mean Corpuscular Hemoglobin 31.1 pg (25.0-34.0); Mean Corpuscular Hgb Conc 33.5 g/dL (32.0-36.0); Mean Corpuscular Volume 92.6 fL (80.0-100.0); Mean Platelet Volume 10.4 fL (9.4-12.4); Monocytes # (auto) 0.61 K/uL (0.11-0.59); Neutrophils # (auto) 5.78 K/uL (1.40-6.50); Neutrophils % (auto) 76.3 %; Platelet Count 121 K/uL (130-400); RDW Coefficient of Variation 13.9 % (11.5-14.5); RDW Standard Deviation 47.4 fL (36.4-46.3); Red Blood Count 3.51 M/uL (4.20-5.40); White Blood Count 7.58 K/ul (4.8-10.8)
[2023-12-02 05:20] LABS: Prothrombin Time 11.4 Seconds (9.0-12.0)
[2023-12-02 05:22] LABS: Albumin Globulin Ratio 1.1 (0.9-2); BUN Creatinine Ratio 30.6 (10-20); Bilirubin,Total 0.6 mg/dl (0.2-1.0); Calcium 9.5 mg/dl (8.6-10.3); Creatinine Clr Calc Pharmacy 43.4 ml/min; Est GFR (African American) 70.4 ml/min; Est GFR (Non-African American) 60.7 ml/min; Globulin 2.7 gm/dl (2.5-4.0); Magnesium 1.8 mg/dl (1.7-2.4); Potassium 3.6 mmol/L (3.5-5.1); Total Protein 5.7 gm/dl (6.0-8.3)
[2023-12-02] MEDS: ATORVASTATIN 10 MG TAB PO SCH (09:37)
--- NOTE | 2023-12-02 11:43 | Hospitalist Progress Note ---
Date of Service December 02, 2023 Assessment & Plan (1) Elevated troponin: Plan: Peak high sen trop 633, then decreasing to 400 thereafter Has known CAD and had 3V CABG 2001 By report has at least one known occlusion of one of her previous bypass grafts EKG without ischemic changes Echo this admission -- moderate MR, moderate , normal LV function with normal LV wall motion Although I can't rule out mild ACS I suspect that her trop elevation was more so a type 2 PA / myocardial demand ischemia in setting of her UTI and gastroenteritis as well as a fall cont metoprolol cont aspirin cont statin CPK noted to be wnl ast/alt normalizing (2) Fall: Plan: Suspect 2nd to weakness in setting of UTI and gastroenteritis Can't rule out other pathology check COVID check cervical spine CT, x-rays of b/l ribs, x-rays of humerus on right, x-rays of right wrist check orthostatic BPs check B1, B12, and TSH in am in light of NOT being on chronic anticoagulation for a.fib will obtain MRI brain - r/o subacute CVA PT/OT both advising rehab (3) Gastroenteritis: Plan: N/V/D at time of admission Symptoms resolved She is eating Looks hydrated today Likely viral Could have been bacterial but less likely Checking COVID today to be complete as COVID can cause severe GI symptoms (4) Elevated LFTs: Plan: improving AST has normalized ALT decreasing repeat ALT am for stability other LFTs are wnl structurally her liver is wnl on imaging 2nd to viral process? other? (5) Thrombocytopenia: Plan: 2nd to viral process? check COVID/flu/RSV as COVID and flu in particular can cause transient thrombocytopenia recheck CBC am for stability (6) Hypothyroidism: Plan: Continue levothyroxine Check TSH am (7) HTN (hypertension): Plan: See below Cont metoprolol Cont imdur albeit at lower dose (8) CAD (coronary artery disease): Plan: S/P CABG x 3 in [place] in 2001 cardiology note 2020 states she has chronic stable angina Continue aspirin and metoprolol Bps are low-normal at times, and she reports chronic dizziness/lightheadedness with standing She needs the metoprolol for a.fib rate control Thus, lower Imdur to 30mg BID Cont statin SEE above re: troponin (9) Atrial fibrillation: Plan: Normally on full dose aspirin By report not on anticoagulation due to multiple previous falls Continue aspirin and metoprolol tartrate 50mg BID for rate control Echo findings noted Tele stable since admission (10) History of breast cancer: Plan: noted (11) UTI (urinary tract infection): Plan: 2nd ecoli stop rocephin change to keflex 500mg BID x 4 more days (12) Neck pain: Plan: check cervical spine CT - r/o fracture voltaren gel 4gm QID (13) Back pain: Plan: b/l rib pain posteriorly from her fall (has bruises over sites of pain) check b/l rib series - rule out fracture lidoderm patches scheduled tylenol 1000mg TID (14) Chronic kidney disease, stage 3a: Plan: CrCl about 45 at baseline Creatinine stable Plan States that she lives with her daughter typically. Daughter is traveling right now. PT and OT both advise rehab stay - accepted at [facility]. Left message for her daughter on daughter's voicemail this evening. Discharge tomorrow to rehab if stable?? Admission and Anticipated Discharge Date Admission Date: November 30, 2023 Subjective tele - a.fib, rates <100 pt resting comfortably during the visit she recounted her fall at home doesn't remember any prodromal dizziness but she often does have such at home if she moves too quickly or stands up too fast doesn't recall prodromal chest pain or dyspnea she mainly c/o musculoskeletal complaints today - neck pain, right humerus pain, right wrist pain and b/l back pain over the ribs posteriorly denies pain of her l spine region eating good per staff no vomiting or diarrhea Review of Systems Review of Systems: gen - no fevers HENT - no URI symptoms cv - no chest pain pulm - no dyspnea or cough GI - no N/V Physical Exam Physical Exam: gen - pleasant, NAD face - no signs of trauma; no facial droop neck - no JVD heart - irregularly irregular, s1 s2, 2/6 holosystolic murmur RUSB lungs - CTA b/l abd - soft NT ND BS+ ext - <1+ edema b/l; skin on shins very thin and numerous abrasions/pre- ulcers/etc; bruises noted b/l back just inferior to scapula vascular - pulses feet 2+ b/l musculo - right shoulder - passive ROM does not cause pain; she is tender to palpation over the mid-shaft of her R humerus; she is tender over her distal ulnar region of the right wrist; no deformities any of these areas; cervical spine with tenderness posteriorly especially at base of right neck; passive ROM of neck is decreased; tender over the back b/l (ribs b/l back) Results & Data Results & Data Vital Signs (Past 12 Hours) Vital Signs Temp Pulse Resp BP Pulse Ox O2 Del Method 12/02/23 10:46 36.9 C 72 18 122/68 92 Room Air 12/02/23 07:20 36.6 C 77 18 132/76 97 Room Air 12/02/23 03:01 36.4 C L 69 16 135/80 96 Room Air Laboratory Results Laboratory Results - last 24 hr 12/02/23 12/02/23 04:08 11:15 WBC 7.58 RBC 3.51 L Hgb 10.9 L Hct 32.5 L MCV 92.6 MCH 31.1 MCHC 33.5 RDW Std Deviation 47.4 H RDW Coeff of Adalberto 13.9 Plt Count 121 L MPV 10.4 Immature Gran % (Auto) 0.9 Neut % (Auto) 76.3 Lymph % (Auto) 12.7 [place] % (Auto) 8.0 Eos % (Auto) 1.8 Baso % (Auto) 0.3 Neut # (Auto) 5.78 Lymph # (Auto) 0.96 L [place] # (Auto) 0.61 H Eos # (Auto) 0.14 Baso # (Auto) 0.02 Immature Gran # (Auto) 0.07 PT 11.4 INR 1.0 Sodium 140 Potassium 3.6 Chloride 109 H Carbon Dioxide 24 Anion Gap 7 BUN 26 H Creatinine 0.85 Est Cr Clr Drug Dosing 43.4 Est GFR ( Amer) 70.4 Est GFR (Non-Af Amer) 60.7 BUN/Creatinine Ratio 30.6 H Glucose 106 H Calcium 9.5 Magnesium 1.8 Total Bilirubin 0.6 D AST 38 ALT 59 H Alkaline Phosphatase 73 Total Protein 5.7 L Albumin 3.0 L Globulin 2.7 Albumin/Globulin Ratio 1.1 Diagnostic Findings Microbiology 11/30/23 Unknown Urine,Clean Catch Urine Culture - Final Escherichia coli PG Care Time/CCT Total # of Minutes Spent Total Time Spent with Patient: Total time spent is greater than 50% in coordination of care (as documented) at patient's floor/unit and/or counseling patient: Coding Level of Care Code 96997 SUB INP/OBS CARE 350MIN Diagnoses Elevated troponin R79.89 Fall W19.XXXA Encounter type: initial encounter Gastroenteritis K52.9 Elevated LFTs R79.89 Thrombocytopenia D69.6 Hypothyroidism, unspecified type E03.9 Hypothyroidism type: unspecified Hypertension, unspecified type I10 Hypertension type: unspecified Coronary artery disease of [place] artery of [place] heart with stable angina pectoris I25.118 Associated angina: with stable angina Coronary Disease-Associated Artery/Lesion type: [place] artery [place] vs. transplanted heart: [place] heart Atrial fibrillation I48.91 History of breast cancer Z85.3 UTI (urinary tract infection) N39.0 Neck pain M54.2 Back pain M54.9 Chronic kidney disease, stage 3a N18.31 (2) Fall Encounter type: initial encounter Qualified Code(s): W19.XXXA - Unspecified fall, initial encounter (6) Hypothyroidism Hypothyroidism type: unspecified Qualified Code(s): E03.9 - Hypothyroidism, unspecified (7) HTN (hypertension) Hypertension type: unspecified Qualified Code(s): I10 - Essential (primary) hypertension (8) CAD (coronary artery disease) Associated angina: with stable angina Coronary Disease-Associated Ar [place]/Lesion type: [place] artery [place] vs. transplanted heart: [place] heart Qualified Code(s): I25.118 - Atherosclerotic heart disease of [place] coronary artery with other forms of angina pectoris
[2023-12-02 12:13] LABS: Influenza A virus by PCR Negative (Neg); Influenza B virus by PCR Negative (Neg); RSV by PCR Negative (Neg); SARS CoV2 RNA(COVID-19) Ceph NEGATIVE (Negative)
[2023-12-02] MEDS: LIDOCAINE 5% 1 PATCH TD SCH (12:17)
[2023-12-02] MEDS: ACETAMINOPHEN 500 MG TAB PO SCH (12:17)
[2023-12-02] MEDS: DICLOFENAC SOD 1% GEL 100 GM TUBE EXT SCH (12:17)
--- NOTE | 2023-12-02 13:48 | XRay Report ---
XR ribs BI min 4V w CXR1V HISTORY: 88 years-old Female b/l posterior back pain 2nd fall, rib pain acute chest trauma status po st fall COMPARISON: 11/30/2023 TECHNIQUE: PA view of the chest with views of the bilateral ribs FINDINGS: Cardiac silhouette is enlarged. Median sternotomy with CABG. Surgical clips project over the left axi lla and right upper quadrant abdomen. Surgical anchors in the right humeral head. No pneumothorax or overt pulmonary edema. Blunting of the costophrenic angles may represent trace effusions versus atele ctasis. No airspace consolidation typical for pneumonia. Lumbar levoscoliosis. No acute displaced rib fracture identified. IMPRESSION: 1. No acute displaced rib fracture or pneumothorax identified. 2. Blunting of the costophrenic angles suggestive of trace pleural effusions versus atelectasis. ACT 112: Negative or not required by law. The above report was generated using voice recognition software. It may contain grammatical, syntax o r spelling errors. Electronically signed by: Meir Clemente M.D. 12/02/2023 1:47 PM
--- NOTE | 2023-12-02 14:52 | CT Scan Report ---
CT cervical spine wo con CLINICAL HISTORY: 88 years-old Female with recent fall, neck pain; eval Fx. Acute neck pain with rec ent fall COMPARISON: Head CT 11/30/2023 TECHNIQUE: Multiple axial CT images of the cervical spine were obtained without contrast. A dose low ering technique was utilized adhering to the principles of ALARA. FINDINGS: Demineralized appearance of the bones. Multilevel degenerative changes of the cervical spin e including severe disc space narrowing at C5-C6 with additional severe disc space narrowing within t he upper thoracic spine. Moderate to advanced spondylotic spurring with severe facet arthrosis also n oted throughout with disc osteophyte complex formations. Partially calcified pannus posterior to the dens. Limited evaluation of the central canal and neural foramina by CT technique. Subcentimeter hypodense left thyroid nodule. Unremarkable soft tissues. The imaged intracranial struc tures demonstrate no acute abnormality. The visualized lung apices appear clear. IMPRESSION: No acute cervical spine fracture or subluxation identified. ACT 112: Negative or not required by law. The above report was generated using voice recognition software. It may contain grammatical, syntax o r spelling errors. Electronically signed by: Meir Clemente M.D. 12/02/2023 2:51 PM
--- NOTE | 2023-12-02 15:55 | XRay Report ---
XR humerus RT 2V CLINICAL HISTORY: recent fall, humerus pain, r/o Fx COMPARISON STUDY: None. FINDINGS: No acute fracture or dislocation within the right humerus. Metallic anchors at the humeral head. Degenerative changes within the shoulder. Soft tissues are unremarkable. The bones are osteopen ic. Calcific tendinitis seen within the rotator cuff. IMPRESSION: No fracture or dislocation within the right humerus. ACT 112: Negative or not required by law. Electronically signed by: Shade Duran M.D. 12/02/2023 3:54 PM
--- NOTE | 2023-12-02 16:04 | XRay Report ---
XR wrist RT 2V CLINICAL HISTORY: distal ulnar pain s/p fall COMPARISON STUDY: None. FINDINGS: The bones are osteopenic. Mild soft tissue swelling within the right wrist. No acute fractu re or dislocation. 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 Dorsal ti lt to the lunate suggestive of dorsal intercalated segmental instability. IMPRESSION: No acute fracture or dislocation within the right wrist. ACT 112: Negative or not required by law. Electronically signed by: Shade Duran M.D. 12/02/2023 4:02 PM
[2023-12-02] MEDS: ISOSORBIDE MONO EXTENDED REL 30 MG TABCR PO SCH (20:15)
[2023-12-03 06:47] LABS: Basophils # (auto) 0.04 K/uL (0.00-0.20); Basophils % (auto) 0.6 %; Eosinophils # (auto) 0.17 K/uL (0.00-0.50); Eosinophils % (auto) 2.7 %; Hematocrit (blood only) 31.6 % (37.0-47.0); Hemoglobin 10.5 g/dl (12.0-16.0); Immature Granulocytes # (auto) 0.14 K/uL (0.01-0.20); Immature Granulocytes % (auto) 2.2 %; Lymphocytes # (auto) 1.08 K/uL (1.20-3.40); Lymphocytes % (auto) 17.2 %; Mean Corpuscular Hemoglobin 30.9 pg (25.0-34.0); Mean Corpuscular Hgb Conc 33.2 g/dL (32.0-36.0); Mean Corpuscular Volume 92.9 fL (80.0-100.0); Mean Platelet Volume 9.7 fL (9.4-12.4); Monocytes # (auto) 0.59 K/uL (0.11-0.59); Monocytes % (auto) 9.4 %; Neutrophils # (auto) 4.27 K/uL (1.40-6.50); Neutrophils % (auto) 67.9 %; Platelet Count 134 K/uL (130-400); RDW Coefficient of Variation 13.6 % (11.5-14.5); RDW Standard Deviation 46.9 fL (36.4-46.3); White Blood Count 6.29 K/ul (4.8-10.8)
[2023-12-03 07:19] LABS: BUN Creatinine Ratio 27.9 (10-20); Calcium 9.4 mg/dl (8.6-10.3); Creatinine Clr Calc Pharmacy 42.9 ml/min; Est GFR (African American) 69.4 ml/min; Est GFR (Non-African American) 59.9 ml/min; Potassium 3.8 mmol/L (3.5-5.1)
[2023-12-03 07:33] LABS: Thyroid Stimulating Hormone 1.83 uIu/ml (0.300-4.500)
[2023-12-03] MEDS: cephALEXin 500 MG CAP PO SCH (08:06)
--- NOTE | 2023-12-03 20:27 | Hospitalist Progress Note ---
Date of Service December 03, 2023 Assessment & Plan (1) Elevated troponin: Plan: Peak high sen trop 633, then decreasing to 400 thereafter Has known CAD and had 3V CABG 2001 By report has at least one known occlusion of one of her previous bypass grafts EKG without ischemic changes Echo this admission -- moderate MR, moderate , normal LV function with normal LV wall motion Although I can't rule out mild ACS I suspect that her trop elevation was more so a type 2 [place] / myocardial demand ischemia in setting of her UTI and gastroenteritis as well as a fall cont metoprolol cont aspirin cont statin CPK noted to be wnl ast/alt normalizing (2) Fall: Plan: Suspect 2nd to weakness in setting of UTI and gastroenteritis Can't rule out other pathology check COVID check cervical spine CT, x-rays of b/l ribs, x-rays of humerus on right, x-rays of right wrist check orthostatic BPs check B1, B12, and TSH in am in light of NOT being on chronic anticoagulation for a.fib will obtain MRI brain - r/o subacute CVA PT/OT both advising rehab (3) Gastroenteritis: Plan: N/V/D at time of admission Symptoms resolved She is eating Looks hydrated today Likely viral Could have been bacterial but less likely Checking COVID today to be complete as COVID can cause severe GI symptoms (4) Elevated LFTs: Plan: improving AST has normalized ALT decreasing repeat ALT am for stability other LFTs are wnl structurally her liver is wnl on imaging 2nd to viral process? other? (5) Thrombocytopenia: Plan: 2nd to viral process? check COVID/flu/RSV as COVID and flu in particular can cause transient thrombocytopenia recheck CBC am for stability (6) Hypothyroidism: Plan: Continue levothyroxine Check TSH am (7) HTN (hypertension): Plan: See below Cont metoprolol Cont imdur albeit at lower dose (8) CAD (coronary artery disease): Plan: S/P CABG x 3 in [place] in 2001 cardiology note 2020 states she has chronic stable angina Continue aspirin and metoprolol Bps are low-normal at times, and she reports chronic dizziness/lightheadedness with standing She needs the metoprolol for a.fib rate control Thus, lower Imdur to 30mg BID Cont statin SEE above re: troponin (9) Atrial fibrillation: Plan: Normally on full dose aspirin By report not on anticoagulation due to multiple previous falls Continue aspirin and metoprolol tartrate 50mg BID for rate control Echo findings noted Tele stable since admission (10) History of breast cancer: Plan: noted (11) UTI (urinary tract infection): Plan: 2nd ecoli stop rocephin change to keflex 500mg BID x 4 more days (12) Neck pain: Plan: check cervical spine CT - r/o fracture voltaren gel 4gm QID (13) Back pain: Plan: b/l rib pain posteriorly from her fall (has bruises over sites of pain) check b/l rib series - rule out fracture lidoderm patches scheduled tylenol 1000mg TID (14) Chronic kidney disease, stage 3a: Plan: CrCl about 45 at baseline Creatinine stable Plan States that she lives with her daughter typically. Daughter is traveling right now. PT and OT both advise rehab stay - accepted at [facility]. Left message for her daughter on daughter's voicemail this evening. Discharge tomorrow to rehab if stable?? Admission and Anticipated Discharge Date Admission Date: November 30, 2023 Subjective tele - a.fib with good rate control no new areas of pain Physical Exam Physical Exam: gen - pleasant, NAD face - no signs of trauma; no facial droop neck - no JVD heart - irregularly irregular, s1 s2, 2/6 holosystolic murmur RUSB lungs - CTA b/l abd - soft NT ND BS+ ext - <1+ edema b/l; skin on shins very thin and numerous abrasions/pre- ulcers/etc; bruises noted b/l back just inferior to scapula vascular - pulses feet 2+ b/l musculo - right shoulder - passive ROM does not cause pain; she is tender to palpation over the mid-shaft of her R humerus; she is tender over her distal ulnar region of the right wrist; no deformities any of these areas; cervical spine with tenderness posteriorly especially at base of right neck; passive ROM of neck is decreased; tender over the back b/l (ribs b/l back) Results & Data Results & Data Vital Signs (Past 12 Hours) Vital Signs Temp Pulse Pulse Resp BP Pulse Ox O2 Del Method 12/03/23 19:31 36.7 C 67 16 130/77 97 Room Air 12/03/23 15:43 76 12/03/23 11:44 36.8 C 68 18 115/65 95 Room Air Laboratory Results Laboratory Results - last 24 hr 12/03/23 06:10 WBC 6.29 RBC 3.40 L Hgb 10.5 L Hct 31.6 L MCV 92.9 MCH 30.9 MCHC 33.2 RDW Std Deviation 46.9 H RDW Coeff of Adalberto 13.6 Plt Count 134 MPV 9.7 Immature Gran % (Auto) 2.2 Neut % (Auto) 67.9 Lymph % (Auto) 17.2 [place] % (Auto) 9.4 Eos % (Auto) 2.7 Baso % (Auto) 0.6 Neut # (Auto) 4.27 Lymph # (Auto) 1.08 L [place] # (Auto) 0.59 Eos # (Auto) 0.17 Baso # (Auto) 0.04 Immature Gran # (Auto) 0.14 Sodium 140 Potassium 3.8 Chloride 110 H Carbon Dioxide 24 Anion Gap 6 BUN 24 H Creatinine 0.86 Est Cr Clr Drug Dosing 42.9 Est GFR ( Amer) 69.4 Est GFR (Non-Af Amer) 59.9 BUN/Creatinine Ratio 27.9 H Glucose 97 Calcium 9.4 ALT 46 Vitamin B1 Pending Vitamin B12 319 TSH 1.830 PG Care Time/CCT Total # of Minutes Spent Total Time Spent with Patient: Total time spent is greater than 50% in coordination of care (as documented) at patient's floor/unit and/or counseling patient: Coding Diagnoses Elevated troponin R79.89 Fall W19.XXXA Encounter type: initial encounter Gastroenteritis K52.9 Elevated LFTs R79.89 Thrombocytopenia D69.6 Hypothyroidism, unspecified type E03.9 Hypothyroidism type: unspecified Hypertension, unspecified type I10 Hypertension type: unspecified Coronary artery disease of [place] artery of [place] heart with stable angina pectoris I25.118 Associated angina: with stable angina Coronary Disease-Associated Artery/Lesion type: [place] artery [place] vs. transplanted heart: [place] heart Atrial fibrillation I48.91 History of breast cancer Z85.3 UTI (urinary tract infection) N39.0 Neck pain M54.2 Back pain M54.9 Chronic kidney disease, stage 3a N18.31 (2) Fall Encounter type: initial encounter Qualified Code(s): W19.XXXA - Unspecified fall, initial encounter (6) Hypothyroidism Hypothyroidism type: unspecified Qualified Code(s): E03.9 - Hypothyroidism, unspecified (7) HTN (hypertension) Hypertension type: unspecified Qualified Code(s): I10 - Essential (primary) hypertension (8) CAD (coronary artery disease) Associated angina: with stable angina Coronary Disease-Associated [place] j[place]/Lesion type: [place] artery [place] vs. transplanted heart: [place] heart Qualified Code(s): I25.118 - Atherosclerotic heart disease of [place] coronary artery with other forms of angina pectoris
--- NOTE | 2023-12-04 08:31 | Magnetic Resonance Report ---
Brain MRI WITHOUT CONTRAST HISTORY: falls, a.fib, eval subacute CVA(s) TECHNIQUE: Multiplanar multisequence MRI of the brain was performed without the use of contrast. COMPARISON STUDY: Head CT 11/30/2023. FINDINGS: There is no mass, hematoma, midline shift, or acute infarct. The paranasal sinuses are natacha r. The mastoid air cells are clear. The ventricles and sulci demonstrate mild age-related involutiona l changes. Scattered foci of T2 hyperintensity seen within the periventricular and subcortical white matter are nonspecific but suggestive of mild microvascular ischemic changes. The major vascular flow voids at the skull base are well-maintained. Old small lacunar infarcts within the cerebellar hemisp heres. Prior bilateral lens replacement. IMPRESSION: No acute intracranial abnormality. Scattered foci of T2 hyperintensity seen within the periventricula r and subcortical white matter are nonspecific but favor microvascular ischemic change. ACT 112: Negative or not required by law. Electronically signed by: Shade Duran M.D. 12/04/2023 8:28 AM
--- NOTE | 2023-12-04 16:52 | Discharge Summary ---
Date of Service December 04, 2023 Admission HPI Per Admitting Provider Edith is a 88 year old female with a PMH significant for CAD S/P CABG x3 2001 in [place], resultant occlusion in one of her bypass grafts, afib (on full dose daily aspirin) HTN, hyperlipidemia, and hypothyroidism who presented to the [facility] ED via EMS on 11/30/23 for ongoing nausea/vomiting/diarrhea causing generalized weakness and a fall this am. She was noted to be tachycardic on arrival at 95 but otherwise stable. Labs were significant for a leukocytosis of 13 with neutrophil predominance of 11, platelet count of 100, lymphocyte count of 0.42, total bili of 1.2, AST of 104, ALT of 119, and initial high sen trop of 633. CT of the head/brain wo con and Chest xray were read as negative for acute findings. ECG on arrival shows afib with RVR, new RBBB and possible ST segment elevation in the anterior leads. Prior to admission the patient was given 324 mg Aspirin and 1L NSS. At the time of the exam the patient was sitting in bed in no acute distress with her Daughter/POA sitting bedside, history was obtained from both. Patient lives with her daughter and her daughter's . Has been having slowly progressing ambulatory dysfunction over the past 6 months with multiple falls. Has BL macular degeneration and states she often gets lightheaded/dizzy with standing if she does not take her time. They went out to dinner on 11/28/23, the patient had fish. The following day she had multiple episodes of non-bloody nausea/vomiting, this progressed to non-bloody diarrhea over the past 24 hours. Patient has not been able to take any of her home meds over the past 24 hours. Patient tried to get out of bed overnight to go to the bathroom but feel due to generalized weakness in both lower extremities. Did hit her head and landed on her right side but did not lose consciousness. Was able to drag herself to one of the rios and prop herself up. Family found her sitting on the ground this am around 0730 and called EMS. Patient is generally sore throughout her body but denies focal pain at this time. Denies focal neuro defects. Denies recent fever, chills, chest pain, SOB, cough, abd pain, dysuria hematuria, melena, or LE swelling. If needed, patient and family are in agreement with inpatient rehab on discharge. She is a DNR/DNI and her daughter is her POA. Patient's daughter has to travel out of town for work starting 11/30 and will not be back in town until 12/04. Please refer to Dr. Knutson attestation for any changes to the treatment plan Discharge Exam gen - pleasant, NAD face - no signs of trauma; no facial droop neck - no JVD heart - irregularly irregular, s1 s2, 2/6 holosystolic murmur RUSB lungs - CTA b/l abd - soft NT ND BS+ ext - <1+ edema b/l; skin on shins very thin and numerous abrasions/pre- ulcers/etc; bruises noted b/l back just inferior to scapula vascular - pulses feet 2+ b/l musculo - right shoulder - passive ROM does not cause pain; she is tender to palpation over the mid-shaft of her R humerus; she is tender over her distal ulnar region of the right wrist; no deformities any of these areas; cervical spine with tenderness posteriorly especially at base of right neck; passive ROM of neck is decreased; tender over the back b/l (ribs b/l back) Discharge Data Allergies Allergy/AdvReac Type Severity Reaction Status Date / Time latex AdvReac Rash Verified 11/30/23 16:43 Consultations 11/30/23 09:54 ED Decision to Admit Stat Ordered Studies 11/30/23 08:43 CT head/brain wo con Stat 11/30/23 10:46 US RUQ [US liver] Routine 12/02/23 11:39 CT cervical spine wo con Routine 12/03/23 06:00 MR brain wo con Routine Hospital Course (1) Elevated troponin: Peak high sen trop 633, then decreasing to 400 thereafter Has known CAD and had 3V CABG 2001 By report has at least one known occlusion of one of her previous bypass grafts EKG without ischemic changes Echo this admission -- moderate MR, moderate , normal LV function with normal LV wall motion Although I can't rule out mild ACS I suspect that her trop elevation was more so a type 2 [place] / myocardial demand ischemia in setting of her UTI and gastroenteritis as well as a fall cont metoprolol cont aspirin cont statin CPK noted to be wnl ast/alt normalizing (2) Fall: Suspect 2nd to weakness in setting of UTI and gastroenteritis Can't rule out other pathology check COVID check cervical spine CT, x-rays of b/l ribs, x-rays of humerus on right, x-rays of right wrist check orthostatic BPs check B1, B12, and TSH in am in light of NOT being on chronic anticoagulation for a.fib will obtain MRI brain - r/o subacute CVA PT/OT both advising rehab (3) Gastroenteritis: N/V/D at time of admission Symptoms resolved She is eating Looks hydrated today Likely viral Could have been bacterial but less likely Checking COVID today to be complete as COVID can cause severe GI symptoms (4) Elevated LFTs: improving AST has normalized ALT decreasing repeat ALT am for stability other LFTs are wnl structurally her liver is wnl on imaging 2nd to viral process? other? (5) Thrombocytopenia: 2nd to viral process? check COVID/flu/RSV as COVID and flu in particular can cause transient thrombocytopenia recheck CBC am for stability (6) Hypothyroidism: Continue levothyroxine Check TSH am (7) HTN (hypertension): See below Cont metoprolol Cont imdur albeit at lower dose (8) CAD (coronary artery disease): S/P CABG x 3 in [place] in 2001 cardiology note 2020 states she has chronic stable angina Continue aspirin and metoprolol Bps are low-normal at times, and she reports chronic dizziness/lightheadedness with standing She needs the metoprolol for a.fib rate control Thus, lower Imdur to 30mg BID Cont statin SEE above re: troponin (9) Atrial fibrillation: Normally on full dose aspirin By report not on anticoagulation due to multiple previous falls Continue aspirin and metoprolol tartrate 50mg BID for rate control Echo findings noted Tele stable since admission (10) History of breast cancer: noted (11) UTI (urinary tract infection): 2nd ecoli stop rocephin change to keflex 500mg BID x 4 more days (12) Neck pain: check cervical spine CT - r/o fracture voltaren gel 4gm QID (13) Back pain: b/l rib pain posteriorly from her fall (has bruises over sites of pain) check b/l rib series - rule out fracture lidoderm patches scheduled tylenol 1000mg TID (14) Chronic kidney disease, stage 3a: CrCl about 45 at baseline Creatinine stable Plan States that she lives with her daughter typically. Daughter is traveling right now. PT and OT both advise rehab stay - accepted at [facility]. Left message for her daughter on daughter's voicemail this evening. Discharge tomorrow to rehab if stable?? Discharge Plan Discharge Items Patient Disposition: Transfer Inpatient Rehab Fac Reason For Visit: FALL, ELAVATED TROPONIN, DEHYDRATION, DIARRHEA Discharge Diagnosis: 1. fall with multiple contusions to back, right arm, etc 2. multiple ulcerations of right leg 3. dehydration due to severe GI illness - resolved 4. viral gastroenteritis - resolved 5. UTI - resolved 6. 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 thrombocytopenia - likely due to viral infection - improving 10. abnormal LFTs - resolved; likely was due to viral infection 11. atrial fibrillation 12. hypothyroidism 13. coronary artery disease with prior CABG 14. skin tears right arm 15. moderate aortic stenosis 16. moderate mitral regurgitation Activity: Resume your previous activity Non-emergency contact: Primary Care Provider Call non-emergency contact if: you have any medication questions Follow-up/Referrals: Ivy Child MD [Primary Care Provider] - Diet: Heart Healthy Addtl Attending Provider Instructions: Mrs Grande was hospitalized after suffering a fall at her home. She did not have loss of consciousness. She has multiple contusions and soft tissue injuries to her back, right arm, etc. Fortunately all imaging (CT head, CT neck, numerous x-rays of pelvis/hips/right arm, etc) was negative for fracture. It was likely that a combination of a gastroenteritis and UTI caused her to be weak and dehydrated which then led to her fall. MRI brain was NEGATIVE for acute stroke. Echocardiogram showed normal ejection fraction of 55-60% but she does have moderate aortic stenosis and moderate mitral regurgitation. She will need cardiology follow-up for this. Additional recommendations - 1. optifoams to ulcerations and skin tears on right arm and right leg; consult wound care if needed 2. PT/OT - eval and treat 3. repeat CBC w/ diff and CMP in 3-4 days for stability 4. f/u with cardiology after discharge from [facility] 5. f/u with PCP after discharge from [facility] It was our pleasure to care for Ms Grande! Pending Studies at Discharge: No Stand-Alone Forms: My [facility] Skilled Items Patient informed of condition?: Yes DNR: Yes Discharge Level of Care: Acute rehab Communicable Disease: No Discharge Prognosis: Stable Lines: None Urinary Catheter: No Medications and DC Order Prescriptions: New acetaminophen [Tylenol Extra Strength] 500 mg Tablet 1,000 mg PO TID 10 Days Qty: 60 0RF cephalexin 500 mg Capsule 500 mg PO BID 3 Days Qty: 6 0RF lidocaine 5 % Adhesive Patch,Medicated 2 patch transdermal QAM Qty: 30 0RF Rx Instructions: apply to sites of pain on back for 12 hours, remove for 12 hours diclofenac sodium [Voltaren Arthritis Pain] 1 % Gel 4 g EXT QID Qty: 1 0RF Rx Instructions: apply to any large joint (shoulder, knee, etc), low back, posterior neck, etc. Continued cholecalciferol (vitamin D3) 25 mcg (1,000 unit) capsule 1,000 unit PO DAILY Qty: 30 0RF aspirin 325 mg tablet 325 mg PO DAILY multivitamin with minerals [Hair,Skin and Nails] Tablet 1 tab PO DAILY vitamin B complex Capsule 1 cap PO DAILY atorvastatin [Lipitor] 10 mg tablet 10 mg PO DAILY sertraline [Zoloft] 100 mg tablet 100 mg PO DAILY levothyroxine 50 mcg tablet 50 mcg PO DAILY triamcinolone acetonide 0.1 % ointment 1 applic TOPICAL BID metoprolol tartrate [Lopressor] 50 mg tablet 50 mg PO BID PreserVision AREDS 2,148 mcg-113 mg-45 mg-17.4mg Tablet 2 tab PO DAILY Rx Instructions: administer with AM and PM meals Changed isosorbide mononitrate 60 mg tablet extended release 24 hr 30 mg PO BID Qty: 60 0RF Discontinued potassium gluconate 595 mg (99 mg) tablet 595 mg PO DAILY ibuprofen 200 mg Tablet 400 mg PO Q6H PRN (Reason: fever/pain) Discharge Orders: Discharge Order (Routine); Ordered 12/04/23 Ordered By: Power Coley Admission Data Admit Date/Time: 11/30/23 10:10 Attending Provider: Power Coley Admit Provider: Power Knutson Primary Care Provider: Ivy Child Other Providers: Arielle Presley; [facility] Coding Diagnoses Elevated troponin R79.89 Fall W19.XXXA Encounter type: initial encounter Gastroenteritis K52.9 Elevated LFTs R79.89 Thrombocytopenia D69.6 Hypothyroidism, unspecified type E03.9 Hypothyroidism type: unspecified Hypertension, unspecified type I10 Hypertension type: unspecified Coronary artery disease of [place] artery of [place] heart with stable angina pectoris I25.118 Coronary Disease-Associated Artery/Lesion type: [place] artery [place] vs. transplanted heart: [place] heart Associated angina: with stable angina Atrial fibrillation I48.91 History of breast cancer Z85.3 UTI (urinary tract infection) N39.0 Neck pain M54.2 Back pain M54.9 Chronic kidney disease, stage 3a N18.31
== END 2023-12-04 17:11 | DRG 391 ==
LOC: ED 08:34 → SUATTDRO 10:10 → EDINP 10:10 → 4W 14:59